=== PATIENT | female | born 1980 | race Caucasian/White ===

== ENCOUNTER 2020-03-09 07:36 | Outpatient (CLI) | payer BC, MEDICAID, SELFPAY ==
--- NOTE | ~2020-03-09 | MR_ITS ---
EXAMINATION: MR lumbar spine wo con EXAM DATE: 03/09/2020 08:28 INDICATION: Low back and bilateral leg pain. TECHNIQUE: Multi-sequential, multiplanar MR images of the lumbar spine were obtained without contrast . Sagittal T1, T2, T2 fat saturation images. Axial T2 weighted images. Comparison is made to prior examination from 02/21/2018. FINDINGS: There is moderate disc disease at L4-5 with endplate degenerative signal change, mild to mo derate at L5-S1 with 2 mm retrolisthesis. The vertebral bodies are otherwise aligned. There is mild d isc disease L2-3 and L3-4. The conus medullaris terminates at the L1/2 level and has normal signal in tensity and morphology. There are no suspicious marrow signal abnormalities. 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 Level by level evaluation: T12-L1: Disc does not extend beyond the endplate margin. Facet arthropathy: Mild. Neural foraminal stenosis: No stenosis. Central canal stenosis: No stenosis. L1-L2: Disc does not extend beyond the endplate margin. Facet arthropathy: Mild. Neural foraminal stenosis: No stenosis. Central canal stenosis: No stenosis. L2-L3: There is a mild diffuse disc bulge. Facet arthropathy: Mild. Neural foraminal stenosis: Mild left. Central canal stenosis: No stenosis. L3-L4: There is a mild to moderate diffuse disc bulge. Facet arthropathy: Mild. Neural foraminal stenosis: Mild to moderate left, minimal right. Central canal stenosis: Mild. L4-L5: There is a moderate diffuse disc bulge. Facet arthropathy: Moderate. Neural foraminal stenosis: Moderate bilateral, right greater than left. Central canal stenosis: Mild to moderate. L5-S1: There is a mild diffuse disc bulge with small right central annular fissure. Facet arthropathy: Mild to moderate. Neural foraminal stenosis: Mild to moderate right, mild left. Central canal stenosis: Mild. IMPRESSION: 1. Lower lumbar predominant spondylosis with the right L4-5 neural foramina most narrowed. Reviewed, dictated and finalized at location A. IMPRESSION: 1. Lower lumbar predominant spondylosis with the right L4-[address] narrowed.
== END 2020-03-09 07:37 | disposition home or self-care (01) ==
PROVIDERS: Visit Provider Anesthesiology
DX: M47.26 Other spondylosis with radiculopathy, lumbar region (principal)
CPT/HCPCS: 72148

== ENCOUNTER 2021-03-05 14:03 | Outpatient (CLI) | payer MEDICAID, SELFPAY ==
--- NOTE | ~2021-03-05 | MR_ITS ---
EXAMINATION: MR lumbar spine wo [facility] [place] EXAM DATE: 03/05/2021 15:07 INDICATION: Low back pain. Bilateral leg numbness. TECHNIQUE: Multi-sequential, multiplanar MR images of the lumbar spine were obtained without contrast . Sagittal T1, T2, T2 fat saturation images. Axial T2 weighted images. There is no prior study for comparison. FINDINGS: Moderate disc disease at L4-5, mild to moderate at L5-S1. There is 2 mm anterolisthesis L4 on L5, 3 mm retrolisthesis L5 on S1. Conus medullaris terminates at the T12-L1 level and has normal m orphology. There are some degenerative endplate signal changes L4-5. There are no suspicious focal v ertebral signal abnormalities identified. Paraspinal soft tissue is unremarkable. Level by level evaluation: T12-L1: Disc does not extend beyond the endplate margin. Facet arthropathy: None. Neural foraminal stenosis: No stenosis. Central canal stenosis: No stenosis. L1-L2: Disc does not extend beyond the endplate margin. Facet arthropathy: None. Neural foraminal stenosis: No stenosis. Central canal stenosis: No stenosis. L2-L3: There is a mild diffuse disc bulge. Facet arthropathy: Mild. Neural foraminal stenosis: Mild left. Central canal stenosis: No stenosis. L3-L4: There is a mild diffuse disc bulge. Facet arthropathy: Mild. Neural foraminal stenosis: Mild left. Central canal stenosis: Mild. L4-L5: There is a mild to moderate diffuse disc bulge. Facet arthropathy: Moderate. Neural foraminal stenosis: Moderate right, mild to moderate left. Central canal stenosis: Mild to moderate. L5-S1: There is a mild diffuse disc bulge. Tiny superimposed right central protrusion. Facet arthropathy: Mild to moderate. Neural foraminal stenosis: Mild to moderate right, mild left. Central canal stenosis: No stenosis. Accounting for differences in technique, there is no significant interval change. IMPRESSION: 1. L4-5 moderate spondylosis. Less at other levels. Reviewed, dictated and finalized at location A.
== END 2021-03-05 14:04 | disposition home or self-care (01) ==
LOC: ANHIMG 14:05
PROVIDERS: PCP Nurse Practitioner Family
DX: M47.817 Spondylosis without myelopathy or radiculopathy, lumbosacral region (principal); M48.07 Spinal stenosis, lumbosacral region
CPT/HCPCS: 72148

== ENCOUNTER 2021-09-30 16:18 | Emergency (ER) | payer OTHER, SELFPAY ==
[2021-09-30] VITALS (9 sets, daily range): BP systolic 115–148; BP diastolic 65–87; PULSE 70–88; RESP 16–20; TEMP 36.2; O2SAT 88–97
--- NOTE | ~2021-09-30 | CT_ITS ---
EXAMINATION: CT abdomen pelvis w con DATE: 09/30/2021 20:43 INDICATION: Periumbilical pain TECHNIQUE: Computed tomography (CT) of the abdomen and pelvis was performed with 100 cc Omnipaque 350 intravenous contrast. The dose-length product was 1533.12 mGy-cm. Automated exposure control and ite rative reconstruction technique were employed. COMPARISON: CT dated 07/10/2007 FINDINGS: There is groundglass opacification throughout the lower lungs, possibly small airway diseas e. Borderline heart size. No significant pleural or pericardial effusion. Fatty infiltration of the liver. Gallstones. No secondary findings to suggest cholecystitis. The sple en, pancreas, left adrenal gland and left kidney are unremarkable. There is a 3 mm nonobstructing rig ht renal stone. There are right renal cysts, largest measuring 4.4 cm. There is fat-containing umbili roberto hernia. There is a 3 cm right adnexal cyst, likely ovarian. Nonobstructive bowel gas pattern. The re is moderate lumbar spondylosis at L4-5 and L5-S1. Grade 1 degenerative spondylolisthesis at L4-5. IMPRESSION: 1. Cholelithiasis. 2: Nonobstructing right nephrolithiasis measuring 3 mm. 3: Right ovarian cyst measuring 3 cm. 4: Diffuse groundglass densities of the lung parenchyma, possibly small airway disease. Reviewed, dictated and finalized at location A. TY ORDINARY
[2021-09-30 19:40] LABS: Basophils Absolute Auto 0.1 K/mm3 (0.0-0.1); Basophils Percent Auto 0.5 % (0.2-1.2); Eosinophils Absolute Auto 0.4 K/mm3 (0-0.3); Eosinophils Percent Auto 4.1 % (0-4.4); Hematocrit 41.3 % (37.0-47.0); Hemoglobin 13.8 g/dL (12.0-15.0); Immature Granulocyte Absolute 0.06 K/mm3 (0.00-0.031); Immature Granulocyte Percent A 0.6 % (0-0.5); Lymphocytes Absolute Auto 2.77 K/mm3 (0.9-3.2); Lymphocytes Percent Auto 28.3 % (18.3-44.2); Mean Corpuscular HGB Conc 33.4 g/dl (32-36); Mean Corpuscular Hemoglobin 31.9 pg (26-34); Mean Corpuscular Volume 95.6 fl (80-100); Mean Platelet Volume 9.9 fl (7.4-10.4); Monocytes Absolute Auto 0.9 K/mm3 (0.1-0.6); Monocytes Percent Auto 8.7 % (2.6-8.5); Neutrophils Absolute Auto 5.7 K/mm3 (1.3-6.7); Neutrophils Percent Auto 57.8 % (45.5-73.1); Platelet Count Result 289 k/mm3 (150-375); Red Blood Count 4.32 M/mm3 (4.2-5.4); Red Cell Distribution Width 14.7 % (11.5-14.5); White Blood Count 9.8 K/mm3 (4.5-10.0)
[2021-09-30 19:49] LABS: Alanine Aminotransferase 168 U/L (4-35); Albumin Level 4.2 g/dL (3.5-5.1); Alkaline Phosphatase 96 U/L (38-126); Anion Gap 4 mmol/L (8-16); Aspartate Amino Transferase 122 U/L (14-36); Bilirubin,Total 0.5 mg/dL (0.2-1.3); Blood Urea Nitrogen 7 mg/dL (7-17); Calcium 9.2 mg/dL (8.4-10.2); Carbon Dioxide 25 mmol/L (22-30); Chloride 108 mmol/L (98-107); Estimated CRCL calculation 68 ml/min; Estimated Glomerular Filt Rate 45; Glucose 112 mg/dL (65-110); Lipase 59 U/L (23-300); Sodium 137 mmol/L (137-145)
[2021-09-30] MEDS: MORPHINE SULFATE (*CRX) 4 MG/ML INJ IV PUSH (19:52)
[2021-09-30] MEDS: ONDANSETRON INJ 4 MG/2 ML VIAL IV PUSH (19:52)
[2021-09-30] MEDS: SODIUM CHLORIDE 0.9% IV 1,000 ML 150 ML IV CONT (19:52)
[2021-09-30 20:39] LABS: Add Urine Microscopic? YES; Appearance Urine Cloudy (Clear); Bacteria Urine Trace /hpf; Bilirubin Urine Negative (Negative); Color Urine Amber (Yellow); Glucose Urine UA Negative (Negative); Ketones Urine Negative (Negative); Leukocyte Esterase Ur 1+ LEU/UL (Negative); Mucus Urine Few /lpf; Nitrate Urine Negative (Negative); Protein Urine Negative (Negative); RBC Urine 0-2 /hpf (0-2); Specific Grav Ur 1.019 (1.001-1.035); Squamous Epithelial Cell Urine Many /hpf (Few)
[2021-09-30 20:40] LABS: Blood Urine Negative (Negative)
--- NOTE | 2021-09-30 21:43 | ED.ABDPAIN ---
HPI - Abdominal Pain General Chief Complaint: Abdominal Pain Stated Complaint: abd pain Time Seen by Provider: 09/30/21 19:33 Source: patient Mode of arrival: ambulatory Limitations: no limitations History of Present Illness HPI narrative: 41-year-old with no major medical problems here with periumbilical pain and lower abdominal pain for past few days. She denies any nausea or vomiting. She is noticed for the swollen area around the umbilicus. She is had a normal bowel movement 5 days ago. She denies any blood in the stool or in the urine. MD elicited complaint: abdominal pain Pertinent past history: none Onset (ago): day(s) (5) Pain Consistency: constant Location: periumbilical Severity: moderate Quality: aching Migration to: no migration Exacerbating factors: nothing Relieving factors: nothing Related Data Allergies Allergy/AdvReac Type Severity Reaction Status Date / Time No Known Allergies Allergy Unknown Unverified 09/30/21 19:24 Review of Systems Review of Systems: All systems reviewed & are unremarkable except as noted in HPI and below Constitutional: Constitutional: Reports no additional constitutional complaints Eyes: Eyes: Reports no additional eye complaints ENT: Reports system reviewed and no additional complaints, except as documented Cardiovascular: Cardiovascular: Reports no additional cardiovascular complaints Respiratory: Respiratory: Reports no additional respiratory complaints Gastrointestinal: Gastrointestinal: Reports as per HPI Musculoskeletal: Musculoskeletal: Reports no additional musculoskeletal complaints Integumentary/Breasts: Skin/Breast: Reports system reviewed and no additional complaints, except as docu Neurologic: Reports system reviewed and no additional complaints, except as documented Exam Narrative: GENERAL: Well-appearing,obese , and in no acute distress. HEAD: Normocephalic, atraumatic. EYES: PERRLA and EOMI. NECK: Supple. CHEST: Clear to auscultation. No respiratory distress. HEART: Regular rate and rhythm. No murmur heard. Normal peripheral pulses. ABDOMEN: Soft, periumbilical tenderness and in the lower abdomen, nondistended, normal active bowel sounds. EXTREMITIES: Normal range of motion. No edema. SKIN: Warm, dry, no rash. NEURO: No focal deficits. Alert and oriented x3. PSYCH: Normal mood and affect. Course Course Emergency Course: Patient feeling much better informed her about her lab work, CT scan. Advised her to follow-up with surgeon fat-free diet Vital Signs Vital signs: Vital Signs Temperature 36.2 C L 12/15/21 16:23 Pulse Rate 87 09/30/21 16:23 Respiratory Rate 16 09/30/21 16:23 Blood Pressure 148/87 H 09/30/21 16:23 Pulse Oximetry 97 09/30/21 16:23 Temperature 36.2 C L 09/30/21 16:23 Pulse Rate 88 09/30/21 21:16 Respiratory Rate 20 09/30/21 21:16 Blood Pressure 121/77 09/30/21 21:31 Pulse Oximetry 95 09/30/21 19:21 MDM - Abdominal Pain Lab Data Result diagrams: 09/30/21 19:33 09/30/21 19:33 Labs: Lab Results 09/30/21 09/30/21 09/30/21 Range/Units 19:33 19:33 20:15 WBC 9.8 (4.5-10.0) K/mm3 RBC 4.32 (4.2-5.4) M/mm3 Hgb 13.8 (12.0-15.0) g/dL Hct 41.3 (37.0-47.0) % MCV 95.6 (80-100) fl MCH 31.9 (26-34) pg MCHC 33.4 (32-36) g/dl RDW 14.7 H (11.5-14.5) % Plt Count 289 (150-375) k/mm3 MPV 9.9 (7.4-10.4) fl Immature Gran % (Auto) 0.6 H (0-0.5) % Neut % (Auto) 57.8 (45.5-73.1) % Lymph % (Auto) 28.3 (18.3-44.2) % [place] % (Auto) 8.7 H (2.6-8.5) % Eos % (Auto) 4.1 (0-4.4) % Baso % (Auto) 0.5 (0.2-1.2) % Lymph # (Auto) 2.77 (0.9-3.2) K/mm3 [place] # (Auto) 0.9 H (0.1-0.6) K/mm3 Eos # (Auto) 0.4 H (0-0.3) K/mm3 Baso # (Auto) 0.1 (0.0-0.1) K/mm3 Abs Immat Gran (auto) 0.06 H (0.00-0.031) K/mm3 Absolute Neuts (auto) 5.7 (1.3-6.7) K/mm3 Absolute Nucleated RBC 0.0 (0.0-0.
== END 2021-09-30 21:57 | disposition home or self-care (01) ==
PROVIDERS: Emergency Medicine; Emergency Provider Family Medicine; PCP Nurse Practitioner Family
DX: K42.0 Umbilical hernia with obstruction, without gangrene (principal); K80.20 Calculus of gallbladder without cholecystitis without obstruction
CPT/HCPCS: 36415; 74177; 80053; 81001; 81025; 83690; 85025; 87086; 96361; 96374; 96375; 99284; J2270; J2405; J7030; Q9967

== ENCOUNTER 2021-11-13 10:13 | Outpatient (CLI) | payer OTHER, SELFPAY ==
[2021-11-13 11:30] LABS: Amylase 53 U/L (30-110)
--- NOTE | 2021-11-13 14:00 | ECG_ITS ---
Measurements Intervals [place] Rate: 78 P: 50 [place]: 156 QRS: 11 QRSD: 101 T: 35 QT: 360 QTc: 410 Interpretive Statements SINUS RHYTHM DELAYED PRECORDIAL R/S TRANSITION VOLTAGE CRITERIA FOR LVH MINIMAL Q WAVES- HIGH LATERAL LEADS BASELINE ARTIFACT- I, II, III, AVR, AVL, AVF, V5 BORDERLINE ECG Electronically Signed On 11-13-2021 10:41:35 LAPPER by Abhi Horne D.O.
== END 2021-11-13 10:14 | disposition home or self-care (01) ==
LOC: ANHSURGERY 10:18
PROVIDERS: PCP Nurse Practitioner Family; Visit Provider Surgery
DX: Z01.818 Encounter for other preprocedural examination (principal); K80.20 Calculus of gallbladder without cholecystitis without obstruction; I10 Essential (primary) hypertension; F17.200 Nicotine dependence, unspecified, uncomplicated
CPT/HCPCS: 36415; 82150; 86850; 86900; 86901; 93005

== ENCOUNTER 2021-11-16 01:42 | Day surgery (SDC) | payer OTHER, SELFPAY ==
[2021-11-11 10:28] VITALS: BMI 50.6
--- NOTE | 2021-11-11 10:43 | PC.NURSE ---
Report to the Outpatient Waiting Room, entrance under the green pavilion located off [facility], at time 6:00 on date 11/16/21. OR Time: 7:30. - You will be asked a series of questions to screen for COVID 19 for your protection. - A mask is required within the hospital. - No visitors are allowed at this time. Preoperative COVID Testing Requirements: No COVID Test needed if: (proof is required; if not received patient will have Rapid Test prior to entry) - Patient has received COVID Vaccine at least 14 days prior to procedure date or - Patient has positive COVID test result within last 90 days of surgery date. COVID Test needed if above criteria is not met Patients may have clear liquids (water, carbonated beverages, clear teas, apple juice) until 3 hours prior to surgery (4:30) with a maximum of 20 ounces. - No food from midnight until time of surgery Take the following medications with a SIP of water the morning of surgery: AMLODIPINE, INHALER, BUSPIRONE, DULOXETINE, GABAPENTIN, TOPIRAMATE Medications to discontinue per physician: VITAMINS/SUPPLEMENTS Date to take last dose: 11/11/21 Please no make-up, nail colombian, hairspray, perfume, deodorant, or body powder the day of surgery. No jewelry (including any body piercings) or valuables the day of surgery, leave them at home. Please take a shower or bath the night before, or the morning of, surgery with an antibacterial soap. Wear comfortable, loose fitting clothing. HIBICLENS SHOWER - Jewelry must be removed prior to entering the operating room. Rings and piercings that are not removed may be cut off. - The hospital will not accept responsibility for valuables. - Please leave all valuables, including medications, at home the day of surgery. If you are going home after surgery, a licensed sales route driver must drive you home. - NO public transportation without another adult. - We recommend that an adult stay with you for 24 hours following discharge. - We also recommend that you do not drive, make important decision, drink alcoholic beverages, or take any drugs that were not prescribed by your health care provider for at least 24 hours after your discharge time. Follow any additional instructions given to you from your surgeon. Telephone instructions given to DEENA WARNER and asked if any additional questions and then verbalized understanding. Patient advised to call surgeon office or pre surgery nurse liaison [phone] if any additional questions.
[2021-11-16] VITALS (9 sets, daily range): BP systolic 115–137; BP diastolic 66–78; PULSE 80–108; RESP 18–24; TEMP 36–36.2; O2SAT 91–97
[2021-11-16] MEDS: ACETAMINOPHEN 500 MG TABLET 1000 MG PO (06:47)
--- NOTE | 2021-11-16 07:04 | WPDANESEPPF ---
Anes - Initial Pre Proc Eval Procedure: Operation Date: 11/16/21 07:30 Proposed Procedures p Laparoscopic Cholecystectomy, Possible Open - Juan Jose Disla DO s Open Incarcerated Umbilical Hernia Repair with Possible Mesh - Juan Jose Disla DO Date/Time: 11/16/21 07:04 Surgeon: Juan Jose Disla DO Pre Op Diagnosis: Incarc Umbilical Hernia, Sympt. Cholelithiasis Patient Data Age: 41 Gender: F Height: 1.63 m Weight: 132 kg Allergies Allergy/AdvReac Type Severity Reaction Status Date / Time No Known Allergies Allergy Unknown Verified 11/16/21 06:39 Home Medications Medication Instructions Recorded Confirmed Type amlodipine 10 mg tablet 10 mg PO DAILY 10/08/21 11/16/21 History ascorbic acid (vitamin C) 250 mg 250 mg PO DAILY 10/08/21 11/16/21 History tablet aspirin 81 mg tablet,delayed 81 mg PO DAILY 10/08/21 11/16/21 History release budesonide-formoterol HFA 160 1 inh INHALATION ONCE 10/08/21 11/16/21 History mcg-4.5 mcg/actuation aerosol inhaler buspirone 15 mg tablet 15 mg PO BID 10/08/21 11/16/21 History cholecalciferol (vitamin D3) 10 10 mcg PO DAILY 10/08/21 11/16/21 History mcg (400 unit) capsule duloxetine 60 mg capsule,delayed 60 mg PO HS 10/08/21 11/16/21 History release furosemide 40 mg tablet 40 mg PO QAM 10/08/21 11/16/21 History gabapentin 600 mg tablet 600 mg PO DAILY 10/08/21 11/16/21 History lisinopril 40 mg tablet 40 mg PO DAILY 10/08/21 11/16/21 History omega-3 fatty acids 1,000 mg 1,000 mg PO DAILY 10/08/21 11/16/21 History capsule omeprazole 20 mg capsule,delayed 20 mg PO DAILY 10/08/21 11/16/21 History release topiramate 50 mg tablet 50 mg PO BID 10/08/21 11/16/21 History vitamin B complex 1 tablet PO DAILY 10/08/21 11/16/21 History Patient hx anesthesia problems: none Family hx anesthesia problems: none Results Review: All pre-operative results and documents have been reviewed as part of the pre-operative evaluation. PMFSH Past Medical History Medical History Anxiety COPD (chronic obstructive pulmonary disease) GERD (gastroesophageal reflux disease) Hypertension Surgical History Surgical History H/O: hysterectomy Family History Family History Father Hypertension Mother Depression Heart disease Hypertension Social History Social History Smoking packs per day: 1 Smoking cigarettes per day: 20.0 Years smoked: 26 Smoking pack-years: 26.00 Smoking status: Current every day smoker Tobacco type: cigarettes Alcohol intake: current Substance use: never Substance use type: marijuana Other substance usage details: EVERY ONCE IN A WHILE Living arrangements: with family Spiritual care concerns: No Anes - Eval Final PreProcedure Day of Procedure 11/16/21 07:04 Patient weight: super morbidly obese Heart: regular rate and rhythm Lungs: decreased breath sounds Airway: Mallampati scale class II Neurological: alert and oriented Last oral intake: >/= 8 hours ASA classification: III Emergent: no Anesthetic plan: proceed Anesthesia type and monitoring: general ETT and standard monitoring Results Review: All pre-operative results and documents have been reviewed as part of the pre-operative evaluation. Informed Consent: The patient's anesthetic plan and its attendant risks and benefits were discussed with the patient/family/POA. Questions were solicited and answers provided to the satisfaction of the patient/family/POA.
[2021-11-16] MEDS: LACTATED RINGERS 1,000 ML 30 ML IV CONT ×2 (07:07→08:45)
[2021-11-16] MEDS: KETOROLAC 15 MG/ML VIAL (*BKC) IV PUSH (07:07)
--- NOTE | 2021-11-16 07:18 | WPDHPUPDATE1 ---
History and Physical Update Update Date/Time: 11/16/21 07:18 History and Physical has been reviewed, including an updated exam of the patient. There are NO changes in the patient's condition. Risks, benefits, and alternatives have been discussed and questions answered. Patient agrees to proceed with procedure.
--- NOTE | 2021-11-16 07:18 | PM.IMHP ---
H&P: HPI History of Present Illness Date/Time: 11/16/21 07:18 Chief Complaint: umbilical hernia, cholelithiasis Narrative: 41 yo woman presents for lap angel and umbilical hernia repair. She reports no changes since last seen in office. Review of Systems Review of Systems: All systems reviewed & are unremarkable except as noted in HPI and below Constitutional: Constitutional: Denies chills, Denies fever(s), Denies headache(s) and Denies weight loss Eyes: Eyes: Denies change in vision ENT: Denies dizziness, Denies headache(s), Denies neck mass and Denies throat swelling Cardiovascular: Cardiovascular: Denies chest pain, Denies lightheadedness and Denies dyspnea Respiratory: Respiratory: Denies cough, Denies dyspnea and Denies wheezing Gastrointestinal: Gastrointestinal: Denies abdominal pain, Denies change in bowel habits, Denies nausea and Denies vomiting Genitourinary: Genitourinary: Denies hematuria and Denies dysuria Musculoskeletal: Musculoskeletal: Reports as per HPI Integumentary/Breasts: Skin/Breast: Reports as per HPI Neurologic: Denies dizziness and Denies headache(s) Allergic/Immunologic: Allergic/Immunologic: Denies throat swelling and Denies wheezing PMFSH Past Medical History Medical History Anxiety COPD (chronic obstructive pulmonary disease) GERD (gastroesophageal reflux disease) Hypertension Surgical History Surgical History H/O: hysterectomy Family History Family History Father Hypertension Mother Depression Heart disease Hypertension Social History Social History Smoking packs per day: 1 Smoking cigarettes per day: 20.0 Years smoked: 26 Smoking pack-years: 26.00 Smoking status: Current every day smoker Tobacco type: cigarettes Alcohol intake: current Substance use: never Substance use type: marijuana Other substance usage details: EVERY ONCE IN A WHILE Living arrangements: with family Spiritual care concerns: No Meds Home Medications and Allergies Home Medications Medication Instructions Recorded Confirmed Type amlodipine 10 mg tablet 10 mg PO DAILY 10/08/21 11/16/21 History ascorbic acid (vitamin C) 250 mg 250 mg PO DAILY 10/08/21 11/16/21 History tablet aspirin 81 mg tablet,delayed 81 mg PO DAILY 10/08/21 11/16/21 History release budesonide-formoterol HFA 160 1 inh INHALATION ONCE 10/08/21 11/16/21 History mcg-4.5 mcg/actuation aerosol inhaler buspirone 15 mg tablet 15 mg PO BID 10/08/21 11/16/21 History cholecalciferol (vitamin D3) 10 10 mcg PO DAILY 10/08/21 11/16/21 History mcg (400 unit) capsule duloxetine 60 mg capsule,delayed 60 mg PO HS 10/08/21 11/16/21 History release furosemide 40 mg tablet 40 mg PO QAM 10/08/21 11/16/21 History gabapentin 600 mg tablet 600 mg PO DAILY 10/08/21 11/16/21 History lisinopril 40 mg tablet 40 mg PO DAILY 10/08/21 11/16/21 History omega-3 fatty acids 1,000 mg 1,000 mg PO DAILY 10/08/21 11/16/21 History capsule omeprazole 20 mg capsule,delayed 20 mg PO DAILY 10/08/21 11/16/21 History release topiramate 50 mg tablet 50 mg PO BID 10/08/21 11/16/21 History vitamin B complex 1 tablet PO DAILY 10/08/21 11/16/21 History Allergies Allergy/AdvReac Type Severity Reaction Status Date / Time No Known Allergies Allergy Unknown Verified 11/16/21 06:39 Vital Signs Vital Signs - 24 hr 11/16/21 07:11 Temperature 36.2 C L Pulse Rate 108 H Respiratory Rate 18 Blood Pressure 129/73 Pulse Oximetry 97 Exam Const: General: no acute distress and alert Orientation/consciousness: patient oriented x3 HENMT: Head: normocephalic and atraumatic Ears: hearing grossly normal bilaterally General nose exam: Normal nares present Mouth: Yes Normal oral a
[2021-11-16] MEDS: ceFAZolin 3 GM/D5W 100 ML 100 ML IVPB (07:27)
[2021-11-16] MEDS: BUPIVACAINE/EPINEPHRINE 0.5% 30 ML VIAL INFILTRATE (07:47)
--- NOTE | 2021-11-16 08:44 | W.PM.PROC2 ---
Procedure Note - Detailed Date of Procedure 11/16/21 Pre-op Diagnosis Symptomatic cholelithiasis, incarcerated umbilical hernia Post-op Diagnosis same Procedure Performed 1. Laparoscopic cholecystectomy 2. Incarcerated umbilical hernia repair Surgeon Juan Jose Disla, Anesthesia general and local (0.5% bupivacaine with epinephrine) Indications This is a 41-year-old woman who presented with periumbilical pain and right upper quadrant abdominal pain for the past couple months. She was noticing pain in the right upper quadrant after eating, but was having fairly constant periumbilical pain especially with physical activity. She had a CT of her abdomen and pelvis which showed evidence of cholelithiasis and umbilical hernia containing fat. I discussed treatment options with patient and decision was made to proceed with laparoscopic cholecystectomy and open incarcerated umbilical hernia repair with possible mesh. Findings Laparoscopic cholecystectomy was performed. The gallbladder was slightly dilated and contained a few gallstones. The cystic duct appeared normal in size. No other intra-abdominal abnormalities were noted except for omentum going up into the umbilical hernia. The gallbladder was removed and sent to the lab for pathology. I then made an incision inferior to the umbilicus and excised the hernia sac and incarcerated contents. The umbilical hernia only measured about 5 mm and was therefore repaired primarily. The hernia sac was sent to the lab for pathology. Description of Procedure Procedure as well as risks, benefits, and alternatives were discussed with patient. Written consent was obtained and placed in chart prior to procedure. The patient was brought back to surgical suite. Patient was placed in supine position on operating table. Time-out was done to confirm patient and procedure. Patient was then intubated by the anesthesia department. Abdomen was prepped and draped in sterile fashion using chlorhexidine prep. 0.5% bupivacaine with epinephrine was infiltrated at each site of incision. A 5 millimeter incision was made near the umbilicus, and a 5 millimeter Optiview trocar was advanced through the abdominal layers under direct visualization. Once inside the abdominal cavity, carbon dioxide was insufflated to create a pneumoperitoneum. The camera was inserted and the abdomen was inspected. No immediate abnormalities were identified. The patient was placed in reverse Trendelenburg position and rotated slightly to the left. An 11 millimeter incision was made in the subxiphoid region, and an 11 millimeter trocar was inserted under direct visualization. Two 5 millimeter incisions were made in the right upper quadrant, and two 5 millimeter trocars were inserted under direct visualization. The gallbladder was identified and grasped at the fundus and retracted superiorly. It was then grasped at the infundibulum retracted laterally. Careful dissection around the neck of the gallbladder was performed using blunt dissection with a [place] grasper and hook electrocautery. The cystic duct was identified, and a window was created behind it. The cystic artery was also identified and a window was created behind it. The critical view of safety was identified, visualizing the cystic duct running directly into the neck of the gallbladder, and the cystic artery running directly into the wall of the gallbladder. A 5 millimeter clip lighting technician was then used to place 2 clips proximally and 1 clip distally on both the cystic duct and cystic artery. They were then both transected using endoscopic scissors. Once safely away from the deacon hepatitis, the gallbladder was dissected free from the liver bed using hook electrocautery. Hemostasis was achieved along the way. The gallbladder was removed completely and then removed through the subxiphoid port. The liver bed was then inspected. Hemostasis appeared adequate, and our clips appeared secure. The area
[2021-11-16] MEDS: oxyCODONE HCL (*CRX) 5 MG TAB IR PO (09:55)
== END 2021-11-16 10:35 | disposition home or self-care (01) ==
PROVIDERS: PCP Nurse Practitioner Family; Visit Provider Surgery
PROC: 0FT44ZZ Resection of Gallbladder, Percutaneous Endoscopic Approach (ICD-10-PCS; CPT 47562; principal; 2021-11-16 07:30)
PROC: (CPT 47562; 2021-11-16 07:30)
DX: K80.10 Calculus of gallbladder with chronic cholecystitis without obstruction (principal); K42.0 Umbilical hernia with obstruction, without gangrene; Z79.82 Long term (current) use of aspirin; F41.9 Anxiety disorder, unspecified; J44.9 Chronic obstructive pulmonary disease, unspecified; K21.9 Gastro-esophageal reflux disease without esophagitis; I10 Essential (primary) hypertension; F17.210 Nicotine dependence, cigarettes, uncomplicated; F12.90 Cannabis use, unspecified, uncomplicated; E66.01 Morbid (severe) obesity due to excess calories; Z68.43 Body mass index [BMI] 50.0-59.9, adult
CPT/HCPCS: 47562; 49587; 88302; 88304; A9270; J0690; J1100; J1885; J2250; J2405; J2704; J2710; J3010; J7030; J7120

== ENCOUNTER 2022-02-05 15:01 | Outpatient (CLI) | payer OTHER, SELFPAY ==
--- NOTE | ~2022-02-05 | US_ITS ---
EXAMINATION: US venous doppler [facility] DATE: 02/05/2022 15:54 INDICATION: Left lower limb pain TECHNIQUE: Hummel scale images without and with compression and Doppler images of the left lower extrem ity veins were obtained. COMPARISON: None FINDINGS: The left common femoral vein, profunda femoral vein, femoral vein, popliteal vein, peroneal trunk, posterior tibial veins, and greater saphenous vein are patent. An approximately 4.8 x 1.6 cm Paez's cyst is noted. IMPRESSION: 1. Patent left lower extremity veins. No evidence of deep venous thrombosis. Reviewed, dictated and finalized at location F.
== END 2022-02-05 15:02 | disposition home or self-care (01) ==
LOC: ANHIMG 15:04
PROVIDERS: PCP Nurse Practitioner Family; Visit Provider Nurse Practitioner Family
DX: M79.89 Other specified soft tissue disorders (principal); M79.605 Pain in left leg
CPT/HCPCS: 93971

== ENCOUNTER 2022-02-06 14:22 | Emergency (ER) | payer OTHER, SELFPAY ==
[2022-02-06] VITALS (20 sets, daily range): BP systolic 103–138; BP diastolic 57–84; PULSE 66–95; RESP 10–25; TEMP 36.9; O2SAT 89–96
--- NOTE | ~2022-02-06 | XR_ITS ---
EXAMINATION: XR chest 2V Exam Date/Time: 02/06/2022 14:30 CDT CLINICAL HISTORY: CHEST PRESSURE. HX HTN, FLUID OVERLOAD Comparison: 09/24/2018. RESULT: Lines, tubes, and devices: None. Lungs and pleura: Mild diffuse reticular pattern. Cardiomediastinal silhouette: Stable cardiomediastinal silhouette. Other: No acute osseous or upper abdominal finding. IMPRESSION: Mild interstitial edema. Reviewed, dictated and finalized at location K. IMPRESSION: Mild interstitial edema.
--- NOTE | 2022-02-06 14:23 | ECG_ITS ---
Measurements Intervals [place] Rate: 83 P: 47 CT: 143 QRS: -3 QRSD: 94 T: 40 QT: 352 QTc: 415 Interpretive Statements SINUS RHYTHM VOLTAGE CRITERIA FOR LVH [MEETS CRITERIA IN ONE OF: R(aVL), S(V1), R(V5), R(V5/V6)+S(V1)] COMPARED TO ECG 11/13/2021 10:37:18 NO SIGNIFICANT CHANGES Electronically Signed On 02-07-2022 7:57:53 CDT by Carmelo Duong M.D.
[2022-02-06] MEDS: ASPIRIN 81 MG CHEWABLE TABLET 324 MG PO (14:43)
[2022-02-06 14:50] LABS: Basophils Absolute Auto 0.1 K/mm3 (0.0-0.1); Basophils Percent Auto 0.6 % (0.2-1.2); Eosinophils Absolute Auto 0.4 K/mm3 (0-0.3); Eosinophils Percent Auto 3.8 % (0-4.4); Hematocrit 38.2 % (37.0-47.0); Hemoglobin 12.1 g/dL (12.0-15.0); Immature Granulocyte Absolute 0.06 K/mm3 (0.00-0.031); Immature Granulocyte Percent A 0.6 % (0-0.5); Lymphocytes Absolute Auto 2.52 K/mm3 (0.9-3.2); Mean Corpuscular HGB Conc 31.7 g/dl (32-36); Mean Corpuscular Hemoglobin 27.5 pg (26-34); Mean Corpuscular Volume 86.8 fl (80-100); Mean Platelet Volume 10.3 fl (7.4-10.4); Monocytes Absolute Auto 0.8 K/mm3 (0.1-0.6); Monocytes Percent Auto 7.8 % (2.6-8.5); Neutrophils Absolute Auto 6.6 K/mm3 (1.3-6.7); Neutrophils Percent Auto 63.2 % (45.5-73.1); Platelet Count Result 336 k/mm3 (150-375); Red Cell Distribution Width 17.4 % (11.5-14.5); White Blood Count 10.5 K/mm3 (4.5-10.0)
[2022-02-06 15:00] LABS: Alanine Aminotransferase 127 U/L (4-35); Albumin Level 4.3 g/dL (3.5-5.1); Alkaline Phosphatase 101 U/L (38-126); Anion Gap 10 mmol/L (8-16); Aspartate Amino Transferase 107 U/L (14-36); Bilirubin,Total 0.4 mg/dL (0.2-1.3); Blood Urea Nitrogen 8 mg/dL (7-17); Calcium 8.9 mg/dL (8.4-10.2); Carbon Dioxide 23 mmol/L (22-30); Chloride 106 mmol/L (98-107); Estimated CRCL calculation 107 ml/min; Estimated Glomerular Filt Rate > 60; Glucose 123 mg/dL (65-110); Lipase 59 U/L (23-300); Potassium 3.6 mmol/L (3.4-5.0); Sodium 139 mmol/L (137-145)
[2022-02-06 15:06] LABS: INR 1.1; Partial Thromboplastin Time 28.6 SECONDS (22.3-36.8); Prothrombin Time 13.6 Seconds (11.1-14.7)
[2022-02-06 15:12] LABS: Troponin I < 0.012 ng/mL (0.000-0.034)
--- NOTE | 2022-02-06 15:28 | ED.CHESTPAIN ---
HPI - Chest Pain General Chief Complaint: Chest Pain Stated Complaint: chest pain Time Seen by Provider: 02/06/22 14:54 Source: patient and RN notes reviewed Mode of arrival: ambulatory Limitations: no limitations History of Present Illness HPI narrative: 41-year-old female with history of hypertension, mild water retention, depression and is a current smoker presents emerged department for evaluation of chest pain and shortness of breath. Patient reports this morning at 8 AM she was in bed and had onset of substernal chest pain. Patient states the pain was constant throughout the day. Patient states she began developing shortness of breath around 1 PM. Patient does have lower extremity edema. Patient does have history of hypertension, water retention, depression and she is a smoker. Related Data Home Medications Medication Instructions Recorded Confirmed amlodipine 10 mg tablet 10 mg PO DAILY 10/08/21 12/18/21 ascorbic acid (vitamin C) 250 mg 250 mg PO DAILY 10/08/21 12/18/21 tablet aspirin 81 mg tablet,delayed 81 mg PO DAILY 10/08/21 12/18/21 release budesonide-formoterol HFA 160 1 inh INHALATION ONCE 10/08/21 12/18/21 mcg-4.5 mcg/actuation aerosol inhaler buspirone 15 mg tablet 15 mg PO BID 10/08/21 12/18/21 cholecalciferol (vitamin D3) 10 10 mcg PO DAILY 10/08/21 12/18/21 mcg (400 unit) capsule duloxetine 60 mg capsule,delayed 60 mg PO HS 10/08/21 12/18/21 release furosemide 40 mg tablet 40 mg PO QAM 10/08/21 12/18/21 gabapentin 600 mg tablet 600 mg PO DAILY 10/08/21 12/18/21 lisinopril 40 mg tablet 40 mg PO DAILY 10/08/21 12/18/21 omega-3 fatty acids 1,000 mg 1,000 mg PO DAILY 10/08/21 12/18/21 capsule omeprazole 20 mg capsule,delayed 20 mg PO DAILY 10/08/21 12/18/21 release topiramate 50 mg tablet 50 mg PO BID 10/08/21 12/18/21 vitamin B complex 1 tablet PO DAILY 10/08/21 12/18/21 potassium chloride meq PO 02/06/22 Allergies Allergy/AdvReac Type Severity Reaction Status Date / Time No Known Allergies Allergy Unknown Verified 02/06/22 15:05 Review of Systems Review of Systems: CONSTITUTIONAL: Denies fever, chills, or sweats. EYES: Denies visual changes, redness, or discharge. ENT: Denies rhinorrhea, congestion, sore throat, or otalgia. CARDIOVASCULAR: See HPI RESPIRATORY: Denies cough or dyspnea. GASTROINTESTINAL: Denies abdominal pain, nausea, vomiting, or diarrhea. GENITOURINARY: Denies dysuria or hematuria. SKIN: Denies rash or itching. MUSCULOSKELETAL: Denies back pain, joint pain, or myalgia. NEUROLOGIC: Denies headache, numbness, or weakness. [facility] Past Medical History Medical History Anxiety COPD (chronic obstructive pulmonary disease) GERD (gastroesophageal reflux disease) Hypertension Surgical History Surgical History H/O umbilical hernia repair 11/16/21 H/O: hysterectomy Hx laparoscopic cholecystectomy 11/16/21 Family History Family History Father Hypertension Mother Depression Heart disease Hypertension Social History Social History Smoking packs per day: 1 Smoking cigarettes per day: 20.0 Years smoked: 26 Smoking pack-years: 26.00 Smoking status: Current every day smoker Tobacco type: cigarettes Alcohol intake: current Substance use: never Substance use type: marijuana Other substance usage details: EVERY ONCE IN A WHILE Spiritual care concerns: No Exam Narrative: APPEARANCE: Well appearing, no pain, no distress, well-nourished. HEAD: normocephalic, atraumatic. EYES: PERRLA/EOMI, conjunctivae clear. NOSE: Normal no drainage THROAT: Pharynx clear, no exudate. NECK: Supple. No adenopathy, no masses. RESPIRATORY: Airway patent, respirations nonlabored. Clear to auscultation bilaterally, no rales, rhonch
[2022-02-06 15:48] LABS: NT Pro B Type Natriuretic Pept 50 pg/mL (5-100)
[2022-02-06 16:05] LABS: D Dimer 0.47 ug/mL (<0.48)
[2022-02-06 18:10] LABS: Troponin I < 0.012 ng/mL (0.000-0.034)
[2022-02-06] MEDS: HYDROcodone/acetaminophen (*CRX) 5-325 MG TABLET 1 TAB PO (18:20)
== END 2022-02-06 19:11 | disposition home or self-care (01) ==
PROVIDERS: Emergency Medicine; Emergency Provider Emergency Medicine; PCP Nurse Practitioner Family
DX: R07.2 Precordial pain (principal); I10 Essential (primary) hypertension; J44.9 Chronic obstructive pulmonary disease, unspecified; K21.9 Gastro-esophageal reflux disease without esophagitis; F41.9 Anxiety disorder, unspecified; F32.A Depression, unspecified; Z79.82 Long term (current) use of aspirin; F17.210 Nicotine dependence, cigarettes, uncomplicated; J81.1 Chronic pulmonary edema; R94.31 Abnormal electrocardiogram [ECG] [EKG]
CPT/HCPCS: 36415; 71046; 80053; 83690; 83880; 84484; 85025; 85380; 85610; 85730; 93005; 99284; A9270

== ENCOUNTER 2022-05-14 12:39 | Emergency (ER) | payer OTHER, SELFPAY ==
--- NOTE | 2022-05-14 12:54 | ED.SKABFB ---
HPI - Skin/Abscess/Foreign Bdy General Chief complaint: Skin/Abscess/Foreign Body Stated complaint: cat bite/scratch Time Seen by Provider: 05/14/22 12:54 Source: patient Mode of arrival: ambulatory Limitations: no limitations History of Present Illness HPI narrative: Ms. Paez is a 42-year-old female patient presenting to the clinic today with complaints of a cat bite/scratch to the left forearm She reports she was scratched by her cat 2 weeks ago. Has an area on her forearm that is red and swollen and tender to touch. She has been applying triple antibiotic ointment and cleaning it with soap and water without improvement. Just received tetanus booster earlier this month Related Data Home Medications Medication Instructions Recorded Confirmed amlodipine 10 mg tablet 10 mg PO DAILY 10/08/21 12/18/21 ascorbic acid (vitamin C) 250 mg 250 mg PO DAILY 10/08/21 12/18/21 tablet aspirin 81 mg tablet,delayed 81 mg PO DAILY 10/08/21 12/18/21 release budesonide-formoterol HFA 160 1 inh inhalation ONCE 10/08/21 12/18/21 mcg-4.5 mcg/actuation aerosol inhaler (Symbicort) buspirone 15 mg tablet 15 mg PO BID 10/08/21 12/18/21 cholecalciferol (vitamin D3) 10 10 mcg PO DAILY 10/08/21 12/18/21 mcg (400 unit) capsule duloxetine 60 mg capsule,delayed 60 mg PO HS 10/08/21 12/18/21 release furosemide 40 mg tablet 40 mg PO QAM 10/08/21 12/18/21 gabapentin 600 mg tablet 600 mg PO DAILY 10/08/21 12/18/21 lisinopril 40 mg tablet 40 mg PO DAILY 10/08/21 12/18/21 omega-3 fatty acids 1,000 mg 1,000 mg PO DAILY 10/08/21 12/18/21 capsule (Fish Oil Concentrate) omeprazole 20 mg capsule,delayed 20 mg PO DAILY 10/08/21 12/18/21 release topiramate 50 mg tablet 50 mg PO BID 10/08/21 12/18/21 vitamin B complex (B 1 tablet PO DAILY 10/08/21 12/18/21 Complex-Vitamin B12 tablet) potassium chloride 10 mEq meq PO 02/06/22 tablet,extended release Allergies Allergy/AdvReac Type Severity Reaction Status Date / Time No Known Allergies Allergy Unknown Verified 05/14/22 13:13 Review of Systems Review of Systems: Pertinent positives per HPI. Patient denies any fever, chills, headache, visual changes, dizziness, cough, runny nose, sore throat, shortness of breath, chest pain, palpitations, nausea, vomiting, diarrhea, constipation, abdominal pain, or any urinary issues. PMFSH Past Medical History Medical History Anxiety COPD (chronic obstructive pulmonary disease) GERD (gastroesophageal reflux disease) Hypertension Surgical History Surgical History H/O umbilical hernia repair 11/16/21 H/O: hysterectomy Hx laparoscopic cholecystectomy 11/16/21 Family History Family History Father Hypertension Mother Depression Heart disease Hypertension Social History Social History Smoking packs per day: 1 Smoking cigarettes per day: 20.0 Years smoked: 26 Smoking pack-years: 26.00 Smoking status: Current every day smoker Tobacco type: cigarettes Alcohol intake: current Substance use: never Substance use type: marijuana Other substance usage details: EVERY ONCE IN A WHILE Spiritual care concerns: No Comments At the time of my signature, I reviewed and agree with the nursing past medical, surgical, social, and family history. There is no relevant family history pertinent to the patient complaint. Exam Narrative: General: Well-developed, well nourished, in no apparent distress Head: Normocephalic, atraumatic. Cardio: Regular rate and rhythm, s1 and s2 normal, no murmur appreciated. Resp: Clear to auscultation bilaterally, no rhonchi, rales, wheezing or rubs. Integumentary: [place], warm, and dry, cellulitis to the left forearm where she has 2 cat scratches with
[2022-05-14 12:57] VITALS: BP 138/85; PULSE 89; RESP 16; TEMP 36.4; O2SAT 98
== END 2022-05-14 13:20 | disposition home or self-care (01) ==
PROVIDERS: Emergency Provider Nurse Practitioner Family
DX: S50.812A Abrasion of left forearm, initial encounter (principal); L08.9 Local infection of the skin and subcutaneous tissue, unspecified; W55.03XA Scratched by cat, initial encounter; J44.9 Chronic obstructive pulmonary disease, unspecified; K21.9 Gastro-esophageal reflux disease without esophagitis; I10 Essential (primary) hypertension; F17.210 Nicotine dependence, cigarettes, uncomplicated; F41.9 Anxiety disorder, unspecified; Z79.82 Long term (current) use of aspirin
CPT/HCPCS: 99213; G0463

== ENCOUNTER 2022-06-01 15:33 | Inpatient (IN) | payer OTHER, SELFPAY ==
[2022-06-01] VITALS (11 sets, daily range): BP systolic 107–123; BP diastolic 52–67; PULSE 77–102; RESP 18–20; TEMP 36.2–36.6; O2SAT 94–100; BMI 50.9
--- NOTE | ~2022-06-01 | XR_ITS ---
EXAMINATION: XR chest 1V portable DATE: 06/02/2022 05:59 INDICATION: Shortness of breath TECHNIQUE: frontal view of the chest was obtained. COMPARISON: Chest radiograph dated 02/06/2022 FINDINGS: Persistent bilateral perihilar predominant increased interstitial pattern consistent with mild pulmon janae edema. No more focal airspace opacities, pleural effusion or pneumothorax. The cardiomediastinal silhouette is within normal limits for AP technique. IMPRESSION: 1. Mild pulmonary edema. Reviewed, dictated and finalized at location A. IMPRESSION: 1. Mild pulmonary edema.
--- NOTE | ~2022-06-01 | US_ITS ---
US abdomen limited INDICATION: Right upper quadrant pain PROCEDURE: Realtime right upper abdominal ultrasound. COMPARISON: 07/12/2007 FINDINGS: The pancreas is normal without focal mass or pancreatic ductal dilation. Liver echotexture is increased, consistent with fatty infiltration. There is normal directional flow in the portal ve in. Gallbladder is surgically absent. Common bile duct measures 5 mm. No sonographic Guerra's sign. IMPRESSION: 1: Hepatic steatosis. 2: Gallbladder surgically absent. Reviewed, dictated and finalized at location B.
--- NOTE | ~2022-06-01 | MR_ITS ---
EXAMINATION: MR lower leg LT wo con DATE: 06/08/2022 12:44 INDICATION: Chronic wound to left lower leg with cellulitis one month prior presenting with left lowe r leg erythema, pain and swelling TECHNIQUE: Magnetic resonance imaging (MRI) of the left lower leg was performed without intravenous c ontrast. Sequences included axial, sagittal and coronal T1-weighted FSE and fluid sensitive FSE STIR. The contralateral right lower leg is included on the coronal images. COMPARISON: None. FINDINGS: Asymmetric diffuse skin thickening with subdermal and deeper subcutaneous edema throughout the visual ized left leg which extends from above the knee to just above level of the ankle. Additionally there is epimysial edema along the superficial muscular fascia most prominent along the margins of the medi al head of the gastrocnemius muscle. There is an additional feathery muscular edema at the caudal asp ect of both the medial and lateral heads of the gastrocnemius muscles. 2.7 x 2.3 x 1.2 cm Paez's cys t. Minimal left knee joint effusion at the suprapatellar pouch. No other abnormal fluid collections t o suggest abscess. Bone marrow signal is normal throughout with no fracture, reactive edema, osteomye litis or other pathologic marrow replacing process. IMPRESSION: 1. Extensive nonspecific nonloculated edema throughout the visualized left lower leg including subder mal edema, demonstrated pattern of edema throughout the subcutaneous fat, epimysial edema along the p eripheral margins of the superficial fascia which could be infectious cellulitis, reactive edema rela monica to trauma or congestive edema related to venous insufficiency. No loculated fluid collections to suggest abscess. 2. Small amount of asymmetric muscular edema at the distal gastrocnemius muscle which could be due to low-grade muscle strain or other nonspecific myositis. 3. Small Paez's cyst. Reviewed, dictated and finalized at location A. IMPRESSION: 1. Extensive nonspecific nonloculated edema throughout the visualized left lowe r leg including subdermal edema, demonstrated pattern of edema throughout the s ubcutaneous fat, epimysial edema along the peripheral margins of the superficia l fascia which could be infectious cellulitis, reactive edema related to trauma or congestive edema related to venous insufficiency. No loculated fluid collec tions to suggest abscess. 2. Small amount of asymmetric muscular edema at the distal gastrocnemius muscle which could be due to low-grade muscle strain or other nonspecific myositis. 3. Small Paez's cyst.
--- NOTE | 2022-06-01 17:41 | ED.GENADULT ---
HPI - General Adult General Chief complaint: Wound/Laceration <Erica Matthew PA-C - Last Filed: 06/01/22 21:13> Stated complaint: left leg red swollen wounds draining <Erica Matthew PA-C - Last Filed: 06/01/22 21:13> Time Seen by Provider: 06/01/22 16:56 <Erica Matthew PA-C - Last Filed: 06/01/22 21:13> Source: patient <Erica Matthew PA-C - Last Filed: 06/01/22 21:13> Mode of arrival: ambulatory <Erica Matthew PA-C - Last Filed: 06/01/22 21:13> Limitations: no limitations <Erica Matthew PA-C - Last Filed: 06/01/22 21:13> History of Present Illness HPI narrative: Patient is a 42-year-old female who presents the ED with report of left leg redness, swelling, pain. Patient reports she was diagnosed with cellulitis of her left lower anterior leg in mid April. She was placed on doxycycline at that time and completed this with improvement of her cellulitis. Near the end of April, she sustained a cat scratch to her left forearm and was placed on Augmentin at that time. Also completed this antibiotic. Over the last 3 days she reported having increased pain, redness, and swelling to her left lower leg. She states the redness began in her lower leg initially, but has progressed to involve her entire left lower leg. She does have several chronic wounds to to her left leg, which have purulent drainage today. No fevers at home. Hx of prediabetes, not on medication. Last A1C February. On Lasix 40mg daily. <Erica Matthew PA-C - Last Filed: 06/01/22 21:13> Related Data Home medications: Home Medications Medication Instructions Recorded Confirmed amlodipine 10 mg tablet 10 mg PO DAILY 10/08/21 05/14/22 ascorbic acid (vitamin C) 250 mg 250 mg PO DAILY 10/08/21 05/14/22 tablet aspirin 81 mg tablet,delayed 81 mg PO DAILY 10/08/21 05/14/22 release budesonide-formoterol HFA 160 1 inh inhalation ONCE 10/08/21 05/14/22 mcg-4.5 mcg/actuation aerosol inhaler (Symbicort) buspirone 15 mg tablet 15 mg PO BID 10/08/21 05/14/22 cholecalciferol (vitamin D3) 10 10 mcg PO DAILY 10/08/21 05/14/22 mcg (400 unit) capsule duloxetine 60 mg capsule,delayed 60 mg PO HS 10/08/21 05/14/22 release furosemide 40 mg tablet 40 mg PO QAM 10/08/21 05/14/22 gabapentin 600 mg tablet 600 mg PO DAILY 10/08/21 05/14/22 lisinopril 40 mg tablet 40 mg PO DAILY 10/08/21 05/14/22 omega-3 fatty acids 1,000 mg 1,000 mg PO DAILY 10/08/21 05/14/22 capsule (Fish Oil Concentrate) omeprazole 20 mg capsule,delayed 20 mg PO DAILY 10/08/21 05/14/22 release topiramate 50 mg tablet 50 mg PO BID 10/08/21 05/14/22 vitamin B complex (B 1 tablet PO DAILY 10/08/21 05/14/22 Complex-Vitamin B12 tablet) potassium chloride 10 mEq 1 meq PO DAILY 02/06/22 05/14/22 tablet,extended release <Erica Matthew PA-C - Last Filed: 06/01/22 21:13> Allergies/adverse reactions: Allergies Allergy/AdvReac Type Severity Reaction Status Date / Time No Known Allergies Allergy Unknown Verified 06/01/22 16:39 <Erica Matthew PA-C - Last Filed: 06/01/22 21:13> Review of Systems Review of Systems: CONSTITUTIONAL: Denies fever, chills, or sweats. CARDIOVASCULAR: Denies chest pain. RESPIRATORY: Denies dyspnea. GASTROINTESTINAL: Denies nausea, vomiting. SKIN: Reports redness and swelling to L lower leg. MUSCULOSKELETAL: Reports pain to L lower leg. NEUROLOGIC: Denies tingling, numbness, or weakness. <Erica Matthew PA-C - Last Filed: 06/01/22 21:13> All systems reviewed & are unremarkable except as noted in HPI and below <Erica Matthew PA-C - Last Filed: 06/01/22 21:13> [facility] Past Medical History Medical History: Medical History (Updated 06/01/22 @ 19:05 by Erica Matthew PA-C) Anxiety COPD (chronic obstructive pulmonary disease) GERD (gastroesophageal reflux disease) Hypertension Lower extremity edema Neuropathy Prediabetes <Erica Matthew PA-C - Last Filed: 06/01/22 21:13> Surgical History Surgical
[2022-06-01 17:46] LABS: Basophils Absolute Auto 0.1 K/mm3 (0.0-0.1); Basophils Percent Auto 0.4 % (0.2-1.2); Eosinophils Absolute Auto 0.5 K/mm3 (0-0.3); Eosinophils Percent Auto 2.5 % (0-4.4); Hemoglobin 13.2 g/dL (12.0-15.0); Immature Granulocyte Absolute 0.63 K/mm3 (0.00-0.031); Immature Granulocyte Percent A 3.1 % (0-0.5); Lymphocytes Absolute Auto 2.02 K/mm3 (0.9-3.2); Lymphocytes Percent Auto 9.9 % (18.3-44.2); Mean Corpuscular Hemoglobin 29.8 pg (26-34); Mean Corpuscular Volume 90.3 fl (80-100); Mean Platelet Volume 10.9 fl (7.4-10.4); Monocytes Absolute Auto 0.9 K/mm3 (0.1-0.6); Monocytes Percent Auto 4.2 % (2.6-8.5); Neutrophils Absolute Auto 16.2 K/mm3 (1.3-6.7); Neutrophils Percent Auto 79.9 % (45.5-73.1); Platelet Count Result 284 k/mm3 (150-375); Red Blood Count 4.43 M/mm3 (4.2-5.4); Red Cell Distribution Width 18.2 % (11.5-14.5); White Blood Count 20.3 K/mm3 (4.5-10.0)
[2022-06-01 18:29] LABS: Erythrocyte Sedimentation Rate 62 mm/hr (0-20)
[2022-06-01 18:41] LABS: Alanine Aminotransferase 118 U/L (6-35); Albumin Level 3.5 g/dL (3.5-5.1); Alkaline Phosphatase 143 U/L (38-126); Anion Gap 11 mmol/L (8-16); Aspartate Amino Transferase 39 U/L (14-36); Bilirubin,Total 0.6 mg/dL (0.2-1.3); Blood Urea Nitrogen 26 mg/dL (7-17); Calcium 8.8 mg/dL (8.4-10.2); Carbon Dioxide 23 mmol/L (22-30); Chloride 103 mmol/L (98-107); Estimated CRCL calculation 58 ml/min; Estimated Glomerular Filt Rate 36; Glucose 110 mg/dL (65-110); Potassium 3.6 mmol/L (3.4-5.0); Sodium 137 mmol/L (137-145)
[2022-06-01 18:42] LABS: Hemoglobin A1C 5.9 % (<5.7)
[2022-06-01 18:59] LABS: CRP 22.6 mg/dL (<1.0)
[2022-06-01] MEDS: MORPHINE SULFATE (*CRX) 4 MG/ML INJ IV PUSH (19:41)
[2022-06-01] MEDS: ONDANSETRON INJ 4 MG/2 ML VIAL IV PUSH (19:41)
[2022-06-01 19:42] LABS: SARS-CoV-2 RNA PCR Negative
[2022-06-01 19:46] LABS: Lactic Acid Reflex 1.3 mmol/L (0.7-2.0)
--- NOTE | 2022-06-01 21:22 | ADMGEN ---
This patient, Hilda Amanda, was admitted to 3 Med Surg Room 310-01 @2110. Patient/family oriented to hospital policies and general routines including ID bracelet, bed and alarms, visiting hours, pain management, procedures, bathroom and other care routines, personal items, smoking policy, room service/diet, and visiting hours. Information on how to activate the Rapid Response Team has been discussed. Patient/Family are encouraged to report perceived risks to care and to ask questions if they do not understand what they are told or what they should do.
[2022-06-02] MEDS: HYDROcodone/acetaminophen (*CRX) 5-325 MG TABLET 1 TAB PO ×4 (00:01→18:28)
--- NOTE | 2022-06-02 02:06 | PM.IMHP ---
H&P: HPI History of Present Illness Date/Time: 06/02/22 02:06 Chief Complaint: Left lower extremity cellulitis Narrative: Greater than 30 minutes spent reviewing chart, evaluating, treating, counseling patient. Anticipate less than 48 hour admission, will admit under observation. 42-year-old female past medical history of morbid obesity, anxiety, COPD, GERD, prediabetes, hypertension. presents with worsening left lower extremity cellulitis since Tuesday. Patient reports a few weeks ago she noted a lesion on her left dickerson that was treated with doxycycline, which she completed a couple weeks ago. She noted improvement with taking antibiotics. On Tuesday, however, she noted purulence drainage of orange fluid from her left dickerson with a small area of erythema. By Tuesday it extended a little more up the dickerson. By Tuesday she noted erythema had extended into her foot and slightly above her knee with tenderness. Patient reports chills, however has had normal temperatures. Denies shortness of breath, chest pain, diarrhea/ constipation, trouble urinating, dysuria/ hematuria. Patient reports she had nausea / vomiting on Tuesday, 2 episodes. This is now resolved. Patient also had left forearm cellulitis 2 weeks ago due to a cat scratch, was evaluated in the ED and given Augmentin. This lesion is now resolved, however she reports a new lesion on her forearm after scratching due to pruritus. Patient had recently switched her laundry detergent and had a bad reaction all over her body for which she was given a Medrol Dosepak, hydrocortisone cream, and Benadryl. She reports improvement in all of her symptoms after taking these. In ED, vitals stable. Patient is afebrile. Labs remarkable for white count of 20.3. Creatinine 1.6, prior creatinine noted to be 0.8. AST/ ALT 39/118, alk-phos 143. Patient is status post cholecystectomy earlier this year. Blood cultures obtained, patient given a dose of cefazolin. Review of Systems Review of Systems: Ten point ROS obtained, negative unless otherwise specified per HPI [facility] Past Medical History Medical History (Updated 06/02/22 @ 02:35 by Samuel Jones DO) Anxiety COPD (chronic obstructive pulmonary disease) GERD (gastroesophageal reflux disease) Hypertension Lower extremity edema Neuropathy Prediabetes Surgical History Surgical History H/O umbilical hernia repair 11/16/21 H/O: hysterectomy Hx laparoscopic cholecystectomy 11/16/21 Family History Family History (Updated 06/01/22 @ 21:26 by RENETTA Aguila) Father Hypertension Mother Depression Heart disease Hypertension Grandparent Diabetes mellitus Social History Social History Smoking packs per day: 1 Smoking cigarettes per day: 20.0 Years smoked: 26 Smoking pack-years: 26.00 Smoking status: Current every day smoker Tobacco type: cigarettes Alcohol intake: current Drinks per week: 1 Substance use: current Substance use type: marijuana Other substance usage details: EVERY ONCE IN A WHILE Spiritual care concerns: No Meds Home Medications and Allergies Home Medications Medication Instructions Recorded Confirmed Type amlodipine 10 mg tablet 10 mg PO DAILY 10/08/21 06/01/22 History ascorbic acid (vitamin C) 250 mg 250 mg PO DAILY 10/08/21 06/01/22 History tablet aspirin 81 mg tablet,delayed 81 mg PO DAILY 10/08/21 06/01/22 History release budesonide-formoterol HFA 160 1 inh inhalation DAILY 10/08/21 06/01/22 History mcg-4.5 mcg/actuation aerosol inhaler (Symbicort) buspirone 15 mg tablet 15 mg PO BID 10/08/21 06/01/22 History duloxetine 60 mg capsule,delayed 60 mg PO HS 10/08/21 06/01/22 History release furosemide 40 mg tablet 40 mg PO QAM 10/08/21 06/01/22 History lisinopril 40 mg tablet 40 mg PO DAILY 10/08/21 06/01/22 History omega-3 fatty acids 1,
[2022-06-02] MEDS: LACTATED RINGERS 1,000 ML 100 ML IV CONT (02:14)
[2022-06-02 04:00] VITALS: BP 110/67; PULSE 87; RESP 20; TEMP 36.1; O2SAT 98
[2022-06-02] MEDS: hydrOXYzine HCL 25 MG TABLET 50 MG PO ×2 (06:23→21:37)
[2022-06-02 07:18] LABS: Basophils Absolute Auto 0.1 K/mm3 (0.0-0.1); Basophils Percent Auto 0.6 % (0.2-1.2); Eosinophils Absolute Auto 0.6 K/mm3 (0-0.3); Eosinophils Percent Auto 3.2 % (0-4.4); Hematocrit 36.5 % (37.0-47.0); Hemoglobin 11.8 g/dL (12.0-15.0); Immature Granulocyte Absolute 0.61 K/mm3 (0.00-0.031); Immature Granulocyte Percent A 3.4 % (0-0.5); Lymphocytes Absolute Auto 2.52 K/mm3 (0.9-3.2); Lymphocytes Percent Auto 14.1 % (18.3-44.2); Mean Corpuscular HGB Conc 32.3 g/dl (32-36); Mean Corpuscular Hemoglobin 29.6 pg (26-34); Mean Corpuscular Volume 91.5 fl (80-100); Mean Platelet Volume 10.7 fl (7.4-10.4); Monocytes Absolute Auto 1.1 K/mm3 (0.1-0.6); Monocytes Percent Auto 6.1 % (2.6-8.5); Neutrophils Percent Auto 72.6 % (45.5-73.1); Platelet Count Result 263 k/mm3 (150-375); Red Blood Count 3.99 M/mm3 (4.2-5.4); Red Cell Distribution Width 17.9 % (11.5-14.5); White Blood Count 17.9 K/mm3 (4.5-10.0)
[2022-06-02 07:35] LABS: INR 1.1; Prothrombin Time 14.2 Seconds (11.1-14.7)
[2022-06-02 07:36] LABS: Alanine Aminotransferase 100 U/L (6-35); Albumin Level 3.1 g/dL (3.5-5.1); Alkaline Phosphatase 150 U/L (38-126); Anion Gap 11 mmol/L (8-16); Aspartate Amino Transferase 35 U/L (14-36); Bilirubin,Total 0.5 mg/dL (0.2-1.3); Blood Urea Nitrogen 21 mg/dL (7-17); Calcium 8.5 mg/dL (8.4-10.2); Carbon Dioxide 22 mmol/L (22-30); Chloride 101 mmol/L (98-107); Estimated CRCL calculation 82 ml/min; Estimated Glomerular Filt Rate 55; Glucose 101 mg/dL (65-110); Potassium 3.3 mmol/L (3.4-5.0); Sodium 134 mmol/L (137-145)
[2022-06-02 08:40] VITALS: BP 119/62; PULSE 79; RESP 20; TEMP 36.7; O2SAT 99
[2022-06-02] MEDS: PANTOPRAZOLE 40 MG TABLET PO (09:26)
[2022-06-02] MEDS: busPIRone HCL 5 MG TABLET 15 MG PO ×2 (09:26→16:39)
[2022-06-02] MEDS: methocarbamoL 750 MG TABLET PO ×3 (09:27→16:39)
[2022-06-02] MEDS: ASPIRIN 81 MG ENTERIC TABLET PO (09:27)
[2022-06-02] MEDS: HEPARIN SODIUM 5,000 UNITS/ML VIAL 5000 UNITS SUB-Q ×2 (09:27→21:37)
[2022-06-02] MEDS: POTASSIUM CHLORIDE 20 MEQ PACKET (FOR LIQUID) PO (09:27)
[2022-06-02 10:06] VITALS: PULSE 85; RESP 18
[2022-06-02] MEDS: FLUTICASONE/SALMETEROL 45-21 MCG INHALER 1 PUFF 2 PUFF INHALATION ×2 (10:06→20:30)
[2022-06-02 12:00] VITALS: BP 132/70; PULSE 84; RESP 20; TEMP 36.3; O2SAT 100
[2022-06-02] MEDS: cefTRIAXone 2 GM in SODIUM CHLORIDE 0.9% IV 100 ML 200 ML IVPB (12:54)
--- NOTE | 2022-06-02 13:56 | P.PNIM_ITS ---
Progress Note: A&P Assessment and Plan (1) Cellulitis of left lower extremity: Code(s): L03.116 - Cellulitis of left lower limb Status: Acute Assessment and Plan: Severe, purulent cellulitis onset 1 month ago, failed outpatient doxycycline * Continue vancomycin * Wound cultures pending * Blood cultures pending * Appreciate wound care evaluation * Close monitoring. Continue daily examination of left lower extremity * Elevate extremity * Supportive care. Analgesics as needed (2) Acute kidney injury: Code(s): N17.9 - Acute kidney failure, unspecified Status: Acute Assessment and Plan: Secondary to acute infection vs medication use * Creatinine has improved following IV fluid hydration. 1.1 today * Will discontinue IV fluids to avoid volume overload * Discontinue ibuprofen * Hold home lisinopril and furosemide. Plan to resume tomorrow if renal function remains stable/improved * Monitor BMP (3) Lower extremity edema: Code(s): R60.0 - Localized edema Status: Acute Assessment and Plan: Chronic, bilateral. Left lower extremity acutely worsened secondary to cellulitis * Patient reports no change of right lower extremity edema. Relates this to CHF * Resume diuretics when clinically appropriate * Elevate extremities (4) Elevated LFTs: Code(s): R79.89 - Other specified abnormal findings of blood chemistry Status: Acute Assessment and Plan: AST normalized, slight improvement in ALT. Total bilirubin is normal * Right upper quadrant ultrasound with hepatic steatosis. She is s/p cholecystectomy * Trend LFTs * No RUQ tenderness on exam (5) Prediabetes: Code(s): R73.03 - Prediabetes Status: Acute Assessment and Plan: A1c is 5.9 * No need for further monitoring (6) Hypertension: Code(s): I10 - Essential (primary) hypertension Status: Acute Assessment and Plan: Blood pressures reviewed and have been stable. Last BP 132/70 * Lisinopril on hold due to LEIDA * Resume when clinically appropriate * Monitor BP trends (7) COPD (chronic obstructive pulmonary disease): Qualifiers: COPD type: unspecified COPD Qualified Code(s): J44.9 - Chronic obstructive pulmonary disease, unspecified Code(s): J44.9 - Chronic obstructive pulmonary disease, unspecified Status: Acute Assessment and Plan: Not in acute exacerbation * Albuterol inhaler as needed * Continue home Advair Plan Of note, patient with recent left forearm cellulitis 2 weeks ago following cat scratch, completed course of Augmentin and this has resolved. Recent diffuse allergic reaction secondary to new laundry detergent 1 week ago treated with Medrol Dosepak, hydrocortisone cream, and Benadryl with resolution of symptoms. Subjective Date/time seen: 06/02/22 13:56 Interval history: Date of service: 06/02/2022 Hilda Amanda is a 42-year-old female with a history of COPD, hypertension, CHF, chronic edema of lower extremities, prediabetes, and anxiety who is seen in follow-up for left lower extremity cellulitis. The patient states she has not noticed much improvement today other than her leg is draining less. She feels that her swelling is unchanged and there is no change in the redness. She reports 8/10 pain of the leg. She endorses chills but no fevers. Denies nausea or vomiting. Denies shortness of breath, cough, chest pain, palpitations. She is tolerating her diet. She is able to get u
--- NOTE | 2022-06-02 13:56 | PM.IMPN ---
Progress Note: A&P Assessment and Plan (1) Cellulitis of left lower extremity: Code(s): L03.116 - Cellulitis of left lower limb Status: Acute Assessment and Plan: Severe, purulent cellulitis onset 1 month ago, failed outpatient doxycycline Continue vancomycin Wound cultures pending Blood cultures pending Appreciate wound care evaluation Close monitoring. Continue daily examination of left lower extremity Elevate extremity Supportive care. Analgesics as needed (2) Acute kidney injury: Code(s): N17.9 - Acute kidney failure, unspecified Status: Acute Assessment and Plan: Secondary to acute infection vs medication use Creatinine has improved following IV fluid hydration. 1.1 today Will discontinue IV fluids to avoid volume overload Discontinue ibuprofen Hold home lisinopril and furosemide. Plan to resume tomorrow if renal function remains stable/improved Monitor BMP (3) Lower extremity edema: Code(s): R60.0 - Localized edema Status: Acute Assessment and Plan: Chronic, bilateral. Left lower extremity acutely worsened secondary to cellulitis Patient reports no change of right lower extremity edema. Relates this to CHF Resume diuretics when clinically appropriate Elevate extremities (4) Elevated LFTs: Code(s): R79.89 - Other specified abnormal findings of blood chemistry Status: Acute Assessment and Plan: AST normalized, slight improvement in ALT. Total bilirubin is normal Right upper quadrant ultrasound with hepatic steatosis. She is s/p cholecystectomy Trend LFTs No RUQ tenderness on exam (5) Prediabetes: Code(s): R73.03 - Prediabetes Status: Acute Assessment and Plan: A1c is 5.9 No need for further monitoring (6) Hypertension: Code(s): I10 - Essential (primary) hypertension Status: Acute Assessment and Plan: Blood pressures reviewed and have been stable. Last BP 132/70 Lisinopril on hold due to LEIDA Resume when clinically appropriate Monitor BP trends (7) COPD (chronic obstructive pulmonary disease): Qualifiers: COPD type: unspecified COPD Qualified Code(s): J44.9 - Chronic obstructive pulmonary disease, unspecified Code(s): J44.9 - Chronic obstructive pulmonary disease, unspecified Status: Acute Assessment and Plan: Not in acute exacerbation Albuterol inhaler as needed Continue home Advair Plan Of note, patient with recent left forearm cellulitis 2 weeks ago following cat scratch, completed course of Augmentin and this has resolved. Recent diffuse allergic reaction secondary to new laundry detergent 1 week ago treated with Medrol Dosepak, hydrocortisone cream, and Benadryl with resolution of symptoms. Subjective Date/time seen: 06/02/22 13:56 Interval history: Date of service: 06/02/2022 Hilda Amanda is a 42-year-old female with a history of COPD, hypertension, CHF, chronic edema of lower extremities, prediabetes, and anxiety who is seen in follow-up for left lower extremity cellulitis. The patient states she has not noticed much improvement today other than her leg is draining less. She feels that her swelling is unchanged and there is no change in the redness. She reports 8/10 pain of the leg. She endorses chills but no fevers. Denies nausea or vomiting. Denies shortness of breath, cough, chest pain, palpitations. She is tolerating her diet. She is able to get up and ambulate independently. She denies urinary symptoms. Review of Systems Review of Systems: All systems reviewed & are unremarkable except as noted in HPI and below Exam Narrative: General: Obese, well-appearing 42year-old female, sitting up in bed, comfortable, NARD Neuro: awake, alert and oriented x4, speech clear, no focal neuro deficits noted HEENMT: normocephalic, atraumatic, EOMI, sclerae anicteric, moist oral mucosa Re
--- NOTE | 2022-06-02 15:17 | PC.NURSE ---
Pt came in for cellulitis in left leg, right calf, and left arm. Pt has open spots on left leg that have a yellow bed. pt states she does have an 8/10 pain when it is really bad. Pt has had family at bedside for part of the day. Pt compliant with medication. Will continue to monitor.
[2022-06-02 16:13] VITALS: BP 109/61; PULSE 81; RESP 24; TEMP 36.9; O2SAT 94
[2022-06-02 20:00] VITALS: BP 132/73; PULSE 88; RESP 18; TEMP 36.8; O2SAT 96
[2022-06-02] MEDS: ACETAMINOPHEN 325 MG TABLET 650 MG PO (21:37)
[2022-06-03] VITALS: BP 142/79; PULSE 86; RESP 18; TEMP 36.9; O2SAT 95
[2022-06-03] MEDS: HYDROcodone/acetaminophen (*CRX) 5-325 MG TABLET 1 TAB PO ×4 (00:27→18:38)
[2022-06-03 04:00] VITALS: BP 117/62; PULSE 78; RESP 16; TEMP 36.3; O2SAT 95
--- NOTE | 2022-06-03 04:05 | ECG_ITS ---
Measurements Intervals Hannah Rate: 80 P: 52 NJ: 142 QRS: 8 QRSD: 96 T: 21 QT: 350 QTc: 404 Interpretive Statements SINUS RHYTHM VOLTAGE CRITERIA FOR LVH [MEETS CRITERIA IN ONE OF: R(aVL), S(V1), R(V5), R(V5/V6)+S(V1)] ABNORMAL ECG COMPARED TO ECG 02/06/2022 14:27:52 NO SIGNIFICANT CHANGES Electronically Signed On 06-03-2022 9:38:50 CDT by Jabari Barker M.D.
[2022-06-03] MEDS: ONDANSETRON INJ 4 MG/2 ML VIAL IV PUSH (04:29)
[2022-06-03] MEDS: hydrOXYzine HCL 25 MG TABLET 50 MG PO ×4 (06:36→20:37)
[2022-06-03 06:53] LABS: Hematocrit 36.2 % (37.0-47.0); Hemoglobin 11.8 g/dL (12.0-15.0); Mean Corpuscular HGB Conc 32.6 g/dl (32-36); Mean Corpuscular Hemoglobin 29.7 pg (26-34); Mean Corpuscular Volume 91.2 fl (80-100); Mean Platelet Volume 10.5 fl (7.4-10.4); Platelet Count Result 257 k/mm3 (150-375); Red Blood Count 3.97 M/mm3 (4.2-5.4); Red Cell Distribution Width 17.8 % (11.5-14.5); White Blood Count 15.1 K/mm3 (4.5-10.0)
[2022-06-03 07:14] LABS: Alanine Aminotransferase 134 U/L (6-35); Albumin Level 3.1 g/dL (3.5-5.1); Alkaline Phosphatase 179 U/L (38-126); Anion Gap 7 mmol/L (8-16); Aspartate Amino Transferase 62 U/L (14-36); Bilirubin,Total 0.7 mg/dL (0.2-1.3); Blood Urea Nitrogen 10 mg/dL (7-17); Calcium 8.2 mg/dL (8.4-10.2); Carbon Dioxide 25 mmol/L (22-30); Chloride 104 mmol/L (98-107); Estimated CRCL calculation 99 ml/min; Estimated Glomerular Filt Rate > 60; Glucose 110 mg/dL (65-110); Potassium 3.8 mmol/L (3.4-5.0); Sodium 136 mmol/L (137-145)
[2022-06-03 07:33] LABS: Band Neutrophils Percent 2 % (0-6); Basophils Absolute Manual 0.15 K/mm3 (0.0-0.1); Basophils Percent Manual 1 % (0-1); Eosinophils Absolute Manual 0.75 K/mm3 (0.02-0.5); Eosinophils Percent Manual 5 % (0-4); Lymphocytes Absolute Manual 1.81 K/mm3 (1.1-4.5); Metamyelocytes Percent 2 %; Monocytes Absolute Manual 0.75 K/mm3 (0.1-0.90); Monocytes Percent Manual 5 % (3-9); Neutrophils Absolute Manual 11.32 K/mm3 (1.7-7.2); Neutrophils Percent Manual 73 % (46-73); Platelet Estimate Adequate (Adequate); Total Cells Counted 100
[2022-06-03 08:00] VITALS: BP 136/75; PULSE 90; RESP 14; TEMP 36.6; O2SAT 95
[2022-06-03] MEDS: FLUTICASONE/SALMETEROL 45-21 MCG INHALER 1 PUFF 2 PUFF INHALATION (08:07)
[2022-06-03] MEDS: PANTOPRAZOLE 40 MG TABLET PO (08:38)
[2022-06-03] MEDS: methocarbamoL 750 MG TABLET PO ×3 (08:38→17:05)
[2022-06-03] MEDS: busPIRone HCL 5 MG TABLET 15 MG PO ×2 (08:39→17:06)
[2022-06-03] MEDS: ASPIRIN 81 MG ENTERIC TABLET PO (08:39)
[2022-06-03] MEDS: HEPARIN SODIUM 5,000 UNITS/ML VIAL 5000 UNITS SUB-Q ×2 (08:39→20:37)
[2022-06-03] MEDS: cefTRIAXone 2 GM in SODIUM CHLORIDE 0.9% IV 100 ML 200 ML IVPB (11:43)
[2022-06-03 12:00] VITALS: BP 107/63; PULSE 86; RESP 14; TEMP 36.9; O2SAT 94
--- NOTE | 2022-06-03 15:57 | P.PNIM_ITS ---
Progress Note: A&P Assessment and Plan (1) Cellulitis of left lower extremity: Code(s): L03.116 - Cellulitis of left lower limb Status: Acute Assessment and Plan: Severe, purulent cellulitis onset 1 month ago, failed outpatient doxycycline * Continue vancomycin and Rocephin 2 g daily * Wound cultures pending, preliminary results of heavy growth of Staphylococcus aureus and group G Streptococcus. Susceptibility results pending * Blood cultures pending, negative today * Appreciate wound care evaluation * Close monitoring. Continue daily examination of left lower extremity * Elevate extremity * Supportive care. Analgesics as needed * WBC and CRP trending down. Patient afebrile. (2) Acute kidney injury: Code(s): N17.9 - Acute kidney failure, unspecified Status: Acute Assessment and Plan: Resolved. Secondary to acute infection vs medication use * Creatinine has improved following IV fluid hydration. 0.9 today * IV fluids discontinued on 06/02 to avoid volume overload * Ibuprofen discontinued * Lisinopril and furosemide held. Will resume at this time * Monitor BMP (3) Lower extremity edema: Code(s): R60.0 - Localized edema Status: Acute Assessment and Plan: Chronic, bilateral. Left lower extremity acutely worsened secondary to cellulitis * Patient reports no change of right lower extremity edema. Relates this to CHF * Resume home Lasix 40 mg daily * Elevate extremities (4) Elevated LFTs: Code(s): R79.89 - Other specified abnormal findings of blood chemistry Status: Acute Assessment and Plan: Mildly elevated * Right upper quadrant ultrasound with hepatic steatosis. She is s/p cholecystectomy * Trend LFTs * Will obtain hepatitis panel in morning labs for full evaluation * No RUQ tenderness on exam (5) Prediabetes: Code(s): R73.03 - Prediabetes Status: Acute Assessment and Plan: A1c is 5.9 * No need for further monitoring (6) Hypertension: Code(s): I10 - Essential (primary) hypertension Status: Acute Assessment and Plan: Blood pressures reviewed and have been stable. Last BP 107/63 * Resume home lisinopril * Amlodipine on hold * Monitor BP trends (7) COPD (chronic obstructive pulmonary disease): Qualifiers: COPD type: unspecified COPD Qualified Code(s): J44.9 - Chronic obstructive pulmonary disease, unspecified Code(s): J44.9 - Chronic obstructive pulmonary disease, unspecified Status: Acute Assessment and Plan: Not in acute exacerbation * Albuterol inhaler as needed * Continue home Advair Plan Of note, patient with recent left forearm cellulitis 2 weeks ago following cat scratch, completed course of Augmentin and this has resolved. Recent diffuse allergic reaction secondary to new laundry detergent 1 week ago treated with Medrol Dosepak, hydrocortisone cream, and Benadryl with resolution of symptoms. Subjective Date/time seen: 06/03/22 15:57 Interval history: Date of service: 06/03/2022 Hilda Amanda is a 42-year-old female with a history of COPD, hypertension, CHF, chronic edema of lower extremities, prediabetes, and anxiety who is seen in follow-up for left lower extremity cellulitis. She notes little to no improvement of her redness and swelling of her leg. She states she is having some more drainage today of clear liquid. She denies fever or chills. She states her left forearm is nearly back to normal. She alexander
--- NOTE | 2022-06-03 15:57 | PM.IMPN ---
Progress Note: A&P Assessment and Plan (1) Cellulitis of left lower extremity: Code(s): L03.116 - Cellulitis of left lower limb Status: Acute Assessment and Plan: Severe, purulent cellulitis onset 1 month ago, failed outpatient doxycycline Continue vancomycin and Rocephin 2 g daily Wound cultures pending, preliminary results of heavy growth of Staphylococcus aureus and group G Streptococcus. Susceptibility results pending Blood cultures pending, negative today Appreciate wound care evaluation Close monitoring. Continue daily examination of left lower extremity Elevate extremity Supportive care. Analgesics as needed WBC and CRP trending down. Patient afebrile. (2) Acute kidney injury: Code(s): N17.9 - Acute kidney failure, unspecified Status: Acute Assessment and Plan: Resolved. Secondary to acute infection vs medication use Creatinine has improved following IV fluid hydration. 0.9 today IV fluids discontinued on 06/02 to avoid volume overload Ibuprofen discontinued Lisinopril and furosemide held. Will resume at this time Monitor BMP (3) Lower extremity edema: Code(s): R60.0 - Localized edema Status: Acute Assessment and Plan: Chronic, bilateral. Left lower extremity acutely worsened secondary to cellulitis Patient reports no change of right lower extremity edema. Relates this to CHF Resume home Lasix 40 mg daily Elevate extremities (4) Elevated LFTs: Code(s): R79.89 - Other specified abnormal findings of blood chemistry Status: Acute Assessment and Plan: Mildly elevated Right upper quadrant ultrasound with hepatic steatosis. She is s/p cholecystectomy Trend LFTs Will obtain hepatitis panel in morning labs for full evaluation No RUQ tenderness on exam (5) Prediabetes: Code(s): R73.03 - Prediabetes Status: Acute Assessment and Plan: A1c is 5.9 No need for further monitoring (6) Hypertension: Code(s): I10 - Essential (primary) hypertension Status: Acute Assessment and Plan: Blood pressures reviewed and have been stable. Last BP 107/63 Resume home lisinopril Amlodipine on hold Monitor BP trends (7) COPD (chronic obstructive pulmonary disease): Qualifiers: COPD type: unspecified COPD Qualified Code(s): J44.9 - Chronic obstructive pulmonary disease, unspecified Code(s): J44.9 - Chronic obstructive pulmonary disease, unspecified Status: Acute Assessment and Plan: Not in acute exacerbation Albuterol inhaler as needed Continue home Advair Plan Of note, patient with recent left forearm cellulitis 2 weeks ago following cat scratch, completed course of Augmentin and this has resolved. Recent diffuse allergic reaction secondary to new laundry detergent 1 week ago treated with Medrol Dosepak, hydrocortisone cream, and Benadryl with resolution of symptoms. Subjective Date/time seen: 06/03/22 15:57 Interval history: Date of service: 06/03/2022 Hilda Amanda is a 42-year-old female with a history of COPD, hypertension, CHF, chronic edema of lower extremities, prediabetes, and anxiety who is seen in follow-up for left lower extremity cellulitis. She notes little to no improvement of her redness and swelling of her leg. She states she is having some more drainage today of clear liquid. She denies fever or chills. She states her left forearm is nearly back to normal. She denies pain, drainage, pruritus. Appetite is good. No nausea, vomiting. Denies dizziness, lightheadedness, weakness, shortness breath, cough, chest pain. Review of Systems Review of Systems: All systems reviewed & are unremarkable except as noted in HPI and below Exam Narrative: General: Obese, well-appearing 42year-old female, sitting up in bed, comfortable, NARD Neuro: awake, alert and oriented x4, speech clear, no focal neuro deficits
[2022-06-03 16:00] VITALS: BP 102/50; PULSE 88; RESP 14; TEMP 36.8; O2SAT 92
[2022-06-03] MEDS: TOPIRAMATE 25 MG TABLET 50 MG PO (17:05)
[2022-06-03] MEDS: GABAPENTIN 300 MG CAPSULE PO (17:05)
[2022-06-03 20:00] VITALS: BP 117/64; PULSE 88; RESP 19; TEMP 36.9; O2SAT 97
[2022-06-03] MEDS: FLUTICASONE/SALMETEROL 115-21 MCG INHALER 1 PUFF 2 PUFF INHALATION (20:09)
[2022-06-03] MEDS: DULoxetine HCL 60 MG CAPSULE.DR PO (20:37)
[2022-06-03] MEDS: ACETAMINOPHEN 325 MG TABLET 650 MG PO (20:37)
[2022-06-04] VITALS: BP 137/67; PULSE 97; RESP 18; TEMP 36.1; O2SAT 95
[2022-06-04] MEDS: HYDROcodone/acetaminophen (*CRX) 5-325 MG TABLET 1 TAB PO ×4 (00:31→20:08)
[2022-06-04 04:00] VITALS: BP 114/58; PULSE 85; RESP 20; TEMP 36.1; O2SAT 94
[2022-06-04] MEDS: hydrOXYzine HCL 25 MG TABLET 50 MG PO ×3 (06:32→20:08)
[2022-06-04 07:31] LABS: Basophils Percent Auto 0.3 % (0.2-1.2); Eosinophils Absolute Auto 0.5 K/mm3 (0-0.3); Eosinophils Percent Auto 3.4 % (0-4.4); Hematocrit 33.4 % (37.0-47.0); Hemoglobin 10.8 g/dL (12.0-15.0); Immature Granulocyte Absolute 1.65 K/mm3 (0.00-0.031); Immature Granulocyte Percent A 10.9 % (0-0.5); Lymphocytes Absolute Auto 2.09 K/mm3 (0.9-3.2); Lymphocytes Percent Auto 13.9 % (18.3-44.2); Mean Corpuscular HGB Conc 32.3 g/dl (32-36); Mean Corpuscular Hemoglobin 29.1 pg (26-34); Mean Platelet Volume 10.5 fl (7.4-10.4); Monocytes Absolute Auto 1.3 K/mm3 (0.1-0.6); Monocytes Percent Auto 8.4 % (2.6-8.5); Neutrophils Absolute Auto 9.5 K/mm3 (1.3-6.7); Neutrophils Percent Auto 63.1 % (45.5-73.1); Platelet Count Result 255 k/mm3 (150-375); Red Blood Count 3.71 M/mm3 (4.2-5.4); Red Cell Distribution Width 17.6 % (11.5-14.5); White Blood Count 15.1 K/mm3 (4.5-10.0)
[2022-06-04 07:51] LABS: Alanine Aminotransferase 116 U/L (6-35); Alkaline Phosphatase 169 U/L (38-126); Anion Gap 8 mmol/L (8-16); Aspartate Amino Transferase 46 U/L (14-36); Bilirubin,Total 0.6 mg/dL (0.2-1.3); Blood Urea Nitrogen 8 mg/dL (7-17); Calcium 8.6 mg/dL (8.4-10.2); Carbon Dioxide 24 mmol/L (22-30); Chloride 101 mmol/L (98-107); Estimated CRCL calculation 125 ml/min; Estimated Glomerular Filt Rate > 60; Glucose 113 mg/dL (65-110); Potassium 3.7 mmol/L (3.4-5.0); Sodium 133 mmol/L (137-145)
[2022-06-04 08:00] VITALS: BP 120/56; PULSE 81; RESP 18; TEMP 36.6; O2SAT 93
[2022-06-04] MEDS: FLUTICASONE/SALMETEROL 115-21 MCG INHALER 1 PUFF 2 PUFF INHALATION ×2 (08:01→20:25)
[2022-06-04 08:32] LABS: Hepatitis B Surface Antigen Negative (Negative)
[2022-06-04 08:37] LABS: HAV RESULT Negative (Negative); Hepatitis B Core IgM Result Negative (Negative)
[2022-06-04 08:49] LABS: Hepatitis C Virus Antibody Negative (Negative)
[2022-06-04] MEDS: TOPIRAMATE 25 MG TABLET 50 MG PO ×2 (09:29→17:47)
[2022-06-04] MEDS: ASPIRIN 81 MG ENTERIC TABLET PO (09:29)
[2022-06-04] MEDS: POTASSIUM CHLORIDE 10 MEQ TABLET.ER PO ×3 (09:29→17:47)
[2022-06-04] MEDS: VITAMIN B COMPLEX CAPSULE 1 CAP PO (09:29)
[2022-06-04] MEDS: lisinopriL 20 MG TABLET 40 MG PO (09:29)
[2022-06-04] MEDS: busPIRone HCL 5 MG TABLET 15 MG PO ×2 (09:29→17:47)
[2022-06-04] MEDS: methocarbamoL 750 MG TABLET PO ×3 (09:29→17:47)
[2022-06-04] MEDS: PANTOPRAZOLE 40 MG TABLET PO (09:29)
[2022-06-04] MEDS: FLUTICASONE PROPIONATE 0.05% NA SPR 16 GM BTL (*BKC) 1 SPRAY NASAL (09:30)
[2022-06-04] MEDS: GABAPENTIN 300 MG CAPSULE PO ×3 (09:30→17:47)
[2022-06-04] MEDS: HEPARIN SODIUM 5,000 UNITS/ML VIAL 5000 UNITS SUB-Q ×2 (09:30→20:08)
[2022-06-04] MEDS: FUROSEMIDE 40 MG TABLET PO (09:30)
--- NOTE | 2022-06-04 11:28 | P.PNIM_ITS ---
Progress Note: A&P Assessment and Plan (1) Cellulitis of left lower extremity: Code(s): L03.116 - Cellulitis of left lower limb Status: Acute Assessment and Plan: Severe, purulent cellulitis onset 1 month ago, failed outpatient doxycycline * Continue vancomycin and Rocephin 2 g daily * Wound cultures pending, preliminary results of heavy growth of Staphylococcus aureus and group G Streptococcus. Susceptibility results pending * Blood cultures pending, negative today * Appreciate wound care evaluation * Close monitoring. Continue daily examination of left lower extremity * Elevate extremity * Supportive care. Analgesics as needed * WBC and CRP trending down. Patient afebrile. (2) Acute kidney injury: Code(s): N17.9 - Acute kidney failure, unspecified Status: Acute Assessment and Plan: Resolved. Secondary to acute infection vs medication use * Creatinine has improved following IV fluid hydration. 06/01 1.6, 06/03 0.7, 06/04 0.9 * IV fluids discontinued on 06/02 to avoid volume overload * Ibuprofen discontinued * Lisinopril and furosemide 06/01, resumed 06/03 * Monitor BMP (3) Lower extremity edema: Code(s): R60.0 - Localized edema Status: Acute Assessment and Plan: Chronic, bilateral. Left lower extremity acutely worsened secondary to cellulitis * Patient reports no change of right lower extremity edema. Relates this to CHF * Resume home Lasix 40 mg daily * Elevate extremities (4) Elevated LFTs: Code(s): R79.89 - Other specified abnormal findings of blood chemistry Status: Acute Assessment and Plan: Mildly elevated * Right upper quadrant ultrasound with hepatic steatosis. She is s/p cholecystectomy * Trend LFTs * Hep ABC panel negative * No RUQ tenderness on exam * Suspect fatty liver with possible reactive component (though one would expect LFTs to trend down with clinical improvement) (5) Prediabetes: Code(s): R73.03 - Prediabetes Status: Acute Assessment and Plan: A1c is 5.9 * No need for further monitoring (6) Hypertension: Code(s): I10 - Essential (primary) hypertension Status: Acute Assessment and Plan: Blood pressures reviewed and have been stable. Last BP 107/63 * Resumed home lisinopril 06/03 * Amlodipine on hold * Monitor BP trends * 06/04 control adequate (7) COPD (chronic obstructive pulmonary disease): Qualifiers: COPD type: unspecified COPD Qualified Code(s): J44.9 - Chronic obstru ctive pulmonary disease, unspecified Code(s): J44.9 - Chronic obstructive pulmonary disease, unspecified Status: Acute Assessment and Plan: Not in acute exacerbation * Albuterol inhaler as needed * Continue home Advair Plan Of note, patient with recent left forearm cellulitis 2 weeks ago following cat scratch, completed course of Augmentin and this has resolved. Recent diffuse allergic reaction secondary to new laundry detergent 1 week ago treated with Medrol Dosepak, hydrocortisone cream, and Benadryl with resolution of symptoms. Subjective Date/time seen: 06/04/22 11:28 LEFT LOWER EXTREMITY WITH MUCH LESS PAIN. NO FEVER. TOLERATING DIET. SLIGHTLY LESS REDNESS IN THE LEFT LOWER EXTREMITY. Denied chest pain or shortness of breath. Denied GI issues. Denied abnormal bleeding. Denied weakness or in numbness. Denied dizziness. Review of Systems Review of Systems: All systems reviewed & are unremar
--- NOTE | 2022-06-04 11:28 | PM.IMPN ---
Progress Note: A&P Assessment and Plan (1) Cellulitis of left lower extremity: Code(s): L03.116 - Cellulitis of left lower limb Status: Acute Assessment and Plan: Severe, purulent cellulitis onset 1 month ago, failed outpatient doxycycline Continue vancomycin and Rocephin 2 g daily Wound cultures pending, preliminary results of heavy growth of Staphylococcus aureus and group G Streptococcus. Susceptibility results pending Blood cultures pending, negative today Appreciate wound care evaluation Close monitoring. Continue daily examination of left lower extremity Elevate extremity Supportive care. Analgesics as needed WBC and CRP trending down. Patient afebrile. (2) Acute kidney injury: Code(s): N17.9 - Acute kidney failure, unspecified Status: Acute Assessment and Plan: Resolved. Secondary to acute infection vs medication use Creatinine has improved following IV fluid hydration. 06/01 1.6, 06/03 0.7, 06/04 0.9 IV fluids discontinued on 06/02 to avoid volume overload Ibuprofen discontinued Lisinopril and furosemide 06/01, resumed 06/03 Monitor BMP (3) Lower extremity edema: Code(s): R60.0 - Localized edema Status: Acute Assessment and Plan: Chronic, bilateral. Left lower extremity acutely worsened secondary to cellulitis Patient reports no change of right lower extremity edema. Relates this to CHF Resume home Lasix 40 mg daily Elevate extremities (4) Elevated LFTs: Code(s): R79.89 - Other specified abnormal findings of blood chemistry Status: Acute Assessment and Plan: Mildly elevated Right upper quadrant ultrasound with hepatic steatosis. She is s/p cholecystectomy Trend LFTs Hep ABC panel negative No RUQ tenderness on exam Suspect fatty liver with possible reactive component (though one would expect LFTs to trend down with clinical improvement) (5) Prediabetes: Code(s): R73.03 - Prediabetes Status: Acute Assessment and Plan: A1c is 5.9 No need for further monitoring (6) Hypertension: Code(s): I10 - Essential (primary) hypertension Status: Acute Assessment and Plan: Blood pressures reviewed and have been stable. Last BP 107/63 Resumed home lisinopril 06/03 Amlodipine on hold Monitor BP trends 06/04 control adequate (7) COPD (chronic obstructive pulmonary disease): Qualifiers: COPD type: unspecified COPD Qualified Code(s): J44.9 - Chronic obstructive pulmonary disease, unspecified Code(s): J44.9 - Chronic obstructive pulmonary disease, unspecified Status: Acute Assessment and Plan: Not in acute exacerbation Albuterol inhaler as needed Continue home Advair Plan Of note, patient with recent left forearm cellulitis 2 weeks ago following cat scratch, completed course of Augmentin and this has resolved. Recent diffuse allergic reaction secondary to new laundry detergent 1 week ago treated with Medrol Dosepak, hydrocortisone cream, and Benadryl with resolution of symptoms. Subjective Date/time seen: 06/04/22 11:28 LEFT LOWER EXTREMITY WITH MUCH LESS PAIN. NO FEVER. TOLERATING DIET. SLIGHTLY LESS REDNESS IN THE LEFT LOWER EXTREMITY. Denied chest pain or shortness of breath. Denied GI issues. Denied abnormal bleeding. Denied weakness or in numbness. Denied dizziness. Review of Systems Review of Systems: All systems reviewed & are unremarkable except as noted in HPI and below Exam Narrative: General: Obese, well-appearing 42year-old female, sitting up in bed, comfortable, NARD Neuro: awake, alert and oriented x4, speech clear, no focal neuro deficits noted HEENMT: normocephalic, atraumatic, EOMI, sclerae anicteric Respiratory: clear to auscultation bilaterally, nonlabored breathing Cardio: regular rate, regular rhythm with S1-S2 Abdomen: obese, normoactive bowel sounds, soft, nontender to palpation Ext
[2022-06-04 12:00] VITALS: BP 114/59; PULSE 81; RESP 18; TEMP 36.4; O2SAT 94
[2022-06-04 12:43] LABS: Vancomycin Trough 15.1 ug/mL (10.0-20.0)
[2022-06-04] MEDS: cefTRIAXone 2 GM in SODIUM CHLORIDE 0.9% IV 100 ML IVPB (13:16)
[2022-06-04] MEDS: MUPIROCIN 2% OINT 22 GM TUBE 1 APPLIC TOPICAL ×2 (13:16→17:47)
[2022-06-04 16:00] VITALS: BP 109/59; PULSE 80; RESP 18; TEMP 36.1; O2SAT 96
[2022-06-04 20:00] VITALS: BP 123/62; PULSE 87; RESP 20; TEMP 36.9; O2SAT 93
[2022-06-04] MEDS: DULoxetine HCL 60 MG CAPSULE.DR PO (20:08)
[2022-06-05] MEDS: ACETAMINOPHEN 325 MG TABLET 650 MG PO ×3 (01:32→20:08)
[2022-06-05] MEDS: HYDROcodone/acetaminophen (*CRX) 5-325 MG TABLET 1 TAB PO ×4 (02:14→22:19)
[2022-06-05] MEDS: hydrOXYzine HCL 25 MG TABLET 50 MG PO ×2 (02:20→16:02)
[2022-06-05 05:35] VITALS: BP 114/52; PULSE 84; RESP 20; TEMP 36.9; O2SAT 93
[2022-06-05 06:17] LABS: Hematocrit 37.2 % (37.0-47.0); Hemoglobin 11.9 g/dL (12.0-15.0); Mean Corpuscular Hemoglobin 29.5 pg (26-34); Mean Corpuscular Volume 92.1 fl (80-100); Mean Platelet Volume 10.4 fl (7.4-10.4); Platelet Count Result 351 k/mm3 (150-375); Red Blood Count 4.04 M/mm3 (4.2-5.4); Red Cell Distribution Width 17.5 % (11.5-14.5); White Blood Count 20.1 K/mm3 (4.5-10.0)
[2022-06-05 06:27] LABS: Alanine Aminotransferase 128 U/L (6-35); Albumin Level 3.6 g/dL (3.5-5.1); Alkaline Phosphatase 190 U/L (38-126); Anion Gap 10 mmol/L (8-16); Aspartate Amino Transferase 55 U/L (14-36); Bilirubin,Total 0.7 mg/dL (0.2-1.3); Blood Urea Nitrogen 10 mg/dL (7-17); Calcium 8.6 mg/dL (8.4-10.2); Carbon Dioxide 25 mmol/L (22-30); Chloride 102 mmol/L (98-107); Estimated CRCL calculation 99 ml/min; Estimated Glomerular Filt Rate > 60; Glucose 94 mg/dL (65-110); Potassium 4.1 mmol/L (3.4-5.0); Sodium 137 mmol/L (137-145)
[2022-06-05 07:05] LABS: Band Neutrophils Percent 9 % (0-6); Eosinophils Percent Manual 5 % (0-4); Lymphocytes Absolute Manual 3.81 K/mm3 (1.1-4.5); Monocytes Percent Manual 7 % (3-9); Neutrophils Absolute Manual 13.86 K/mm3 (1.7-7.2); Neutrophils Percent Manual 60 % (46-73); Platelet Estimate Adequate (Adequate); Total Cells Counted 100
[2022-06-05 08:00] VITALS: PULSE 92; RESP 18; O2SAT 93
[2022-06-05] MEDS: FLUTICASONE/SALMETEROL 115-21 MCG INHALER 1 PUFF 2 PUFF INHALATION ×2 (08:37→19:57)
[2022-06-05 08:40] VITALS: PULSE 92; RESP 18
[2022-06-05] MEDS: methocarbamoL 750 MG TABLET PO ×3 (08:56→16:03)
[2022-06-05] MEDS: lisinopriL 20 MG TABLET 40 MG PO (08:56)
[2022-06-05] MEDS: POTASSIUM CHLORIDE 10 MEQ TABLET.ER PO ×3 (08:57→16:04)
[2022-06-05] MEDS: FUROSEMIDE 40 MG TABLET PO (08:57)
[2022-06-05] MEDS: TOPIRAMATE 25 MG TABLET 50 MG PO ×2 (08:57→16:05)
[2022-06-05] MEDS: busPIRone HCL 5 MG TABLET 15 MG PO ×2 (08:57→16:03)
[2022-06-05] MEDS: GABAPENTIN 300 MG CAPSULE PO ×3 (08:57→16:04)
[2022-06-05] MEDS: ASPIRIN 81 MG ENTERIC TABLET PO (08:57)
[2022-06-05] MEDS: HEPARIN SODIUM 5,000 UNITS/ML VIAL 5000 UNITS SUB-Q ×2 (08:58→20:59)
[2022-06-05] MEDS: PANTOPRAZOLE 40 MG TABLET PO (08:58)
[2022-06-05] MEDS: FLUTICASONE PROPIONATE 0.05% NA SPR 16 GM BTL (*BKC) 1 SPRAY NASAL (08:58)
[2022-06-05] MEDS: VITAMIN B COMPLEX CAPSULE 1 CAP PO (08:58)
[2022-06-05] MEDS: MUPIROCIN 2% OINT 22 GM TUBE 1 APPLIC TOPICAL ×2 (08:58→16:03)
--- NOTE | 2022-06-05 11:41 | P.PNIM_ITS ---
Progress Note: A&P Assessment and Plan (1) Cellulitis of left lower extremity: Code(s): L03.116 - Cellulitis of left lower limb Status: Acute Assessment and Plan: Severe, purulent cellulitis onset 1 month ago, failed outpatient doxycycline * Continue vancomycin day 3 and switched from ceftriaxone to cefepime 06/05 due to increased WBC w/ increased bands * Wound cultures with MRA and Group G Streptococcus * Blood cultures negative * Elevate extremity * F/u lab (2) Acute kidney injury: Code(s): N17.9 - Acute kidney failure, unspecified Status: Acute Assessment and Plan: Resolved. Secondary to acute infection vs medication use * Creatinine has improved following IV fluid hydration. 06/01 1.6, 06/03 0.7, 06/04 0.9 * IV fluids discontinued on 06/02 to avoid volume overload * Ibuprofen discontinued * Lisinopril and furosemide 06/01, resumed 06/03 * Monitor BMP (3) Lower extremity edema: Code(s): R60.0 - Localized edema Status: Acute Assessment and Plan: Chronic, bilateral. Left lower extremity acutely worsened secondary to cellulitis * Patient reports no change of right lower extremity edema. Relates this to CHF * Resume home Lasix 40 mg daily * Elevate extremities (4) Elevated LFTs: Code(s): R79.89 - Other specified abnormal findings of blood chemistry Status: Acute Assessment and Plan: Mildly elevated * Right upper quadrant ultrasound with hepatic steatosis. She is s/p cholecystectomy * Trend LFTs * Hep ABC panel negative * No RUQ tenderness on exam * Suspect fatty liver with possible reactive component (though one would expect LFTs to trend down with clinical improvement) (5) Prediabetes: Code(s): R73.03 - Prediabetes Status: Acute Assessment and Plan: A1c is 5.9 * No need for further monitoring (6) Hypertension: Code(s): I10 - Essential (primary) hypertension Status: Acute Assessment and Plan: Blood pressures reviewed and have been stable. Last BP 107/63 * Resumed home lisinopril 06/03 * Amlodipine on hold * Monitor BP trends * 06/05 control adequate (7) COPD (chronic obstructive pulmonary disease): Qualifiers: COPD type: unspecified COPD Qualified Code(s): J44.9 - Chronic obstructive pulmonary disease, unspecified Code(s): J44.9 - Chronic obstructive pulmonary disease, unspecified Status: Acute Assessment and Plan: Not in acute exacerbation * Albuterol inhaler as needed * Continue home Advair Subjective Date/time seen: 06/05/22 11:41 copious drainage from left leg. No change in pain or swelling or redness. Review of Systems Review of Systems: All systems reviewed & are unremarkable except as noted in HPI and below Exam Narrative: General: Obese, well-appearing 42year-old female, sitting up in bed, comfortable, NARD Neuro: awake, alert and oriented x4, speech clear, no focal neuro deficits noted HEENMT: normocephalic, atraumatic, EOMI, sclerae anicteric Respiratory: clear to auscultation bilaterally, nonlabored breathing Cardio: regular rate, regular rhythm with S1-S2 Abdomen: obese, normoactive bowel sounds, soft, nontender to palpation Extremities: RLE with 2+ edema, no erythema or tenderness to palpation. LLE and left dorsal foot with 4+ edema, exquisitely tender to palpation, unable to palpate pedal pulse due to edema Skin: Left lower extremity is markedly karl
--- NOTE | 2022-06-05 11:41 | PM.IMPN ---
Progress Note: A&P Assessment and Plan (1) Cellulitis of left lower extremity: Code(s): L03.116 - Cellulitis of left lower limb Status: Acute Assessment and Plan: Severe, purulent cellulitis onset 1 month ago, failed outpatient doxycycline Continue vancomycin day 3 and switched from ceftriaxone to cefepime 06/05 due to increased WBC w/ increased bands Wound cultures with MRA and Group G Streptococcus Blood cultures negative Elevate extremity F/u lab (2) Acute kidney injury: Code(s): N17.9 - Acute kidney failure, unspecified Status: Acute Assessment and Plan: Resolved. Secondary to acute infection vs medication use Creatinine has improved following IV fluid hydration. 06/01 1.6, 06/03 0.7, 06/04 0.9 IV fluids discontinued on 06/02 to avoid volume overload Ibuprofen discontinued Lisinopril and furosemide 06/01, resumed 06/03 Monitor BMP (3) Lower extremity edema: Code(s): R60.0 - Localized edema Status: Acute Assessment and Plan: Chronic, bilateral. Left lower extremity acutely worsened secondary to cellulitis Patient reports no change of right lower extremity edema. Relates this to CHF Resume home Lasix 40 mg daily Elevate extremities (4) Elevated LFTs: Code(s): R79.89 - Other specified abnormal findings of blood chemistry Status: Acute Assessment and Plan: Mildly elevated Right upper quadrant ultrasound with hepatic steatosis. She is s/p cholecystectomy Trend LFTs Hep ABC panel negative No RUQ tenderness on exam Suspect fatty liver with possible reactive component (though one would expect LFTs to trend down with clinical improvement) (5) Prediabetes: Code(s): R73.03 - Prediabetes Status: Acute Assessment and Plan: A1c is 5.9 No need for further monitoring (6) Hypertension: Code(s): I10 - Essential (primary) hypertension Status: Acute Assessment and Plan: Blood pressures reviewed and have been stable. Last BP 107/63 Resumed home lisinopril 06/03 Amlodipine on hold Monitor BP trends 06/05 control adequate (7) COPD (chronic obstructive pulmonary disease): Qualifiers: COPD type: unspecified COPD Qualified Code(s): J44.9 - Chronic obstructive pulmonary disease, unspecified Code(s): J44.9 - Chronic obstructive pulmonary disease, unspecified Status: Acute Assessment and Plan: Not in acute exacerbation Albuterol inhaler as needed Continue home Advair Subjective Date/time seen: 06/05/22 11:41 copious drainage from left leg. No change in pain or swelling or redness. Review of Systems Review of Systems: All systems reviewed & are unremarkable except as noted in HPI and below Exam Narrative: General: Obese, well-appearing 42year-old female, sitting up in bed, comfortable, NARD Neuro: awake, alert and oriented x4, speech clear, no focal neuro deficits noted HEENMT: normocephalic, atraumatic, EOMI, sclerae anicteric Respiratory: clear to auscultation bilaterally, nonlabored breathing Cardio: regular rate, regular rhythm with S1-S2 Abdomen: obese, normoactive bowel sounds, soft, nontender to palpation Extremities: RLE with 2+ edema, no erythema or tenderness to palpation. LLE and left dorsal foot with 4+ edema, exquisitely tender to palpation, unable to palpate pedal pulse due to edema Skin: Left lower extremity is markedly erythematous with scattered small shallow ulcerations, few draining clear serous fluid Left foot with flaking skin and scabs on plantar surface at foot arch. Scattered excoriations on bilateral upper extremities with no purulence, drainage, signs/symptoms of infection. Scabbed area on left forearm. Psych: appropriate mood and affect, judgment and insight intact Objective Data Vital Signs Vital Signs: Vital Signs - 24 hr 06/04/22 12:00 06/04/22 16:00 06/04/22 20:00 Temperature 97.5 F L 96.9 F L
[2022-06-05 14:00] VITALS: BP 112/49; PULSE 82; RESP 20; TEMP 35.7; O2SAT 97
[2022-06-05] MEDS: DULoxetine HCL 60 MG CAPSULE.DR PO (20:59)
[2022-06-05 21:39] VITALS: BP 139/60; PULSE 89; RESP 18; TEMP 36.4; O2SAT 97
[2022-06-06] MEDS: ACETAMINOPHEN 325 MG TABLET 650 MG PO ×3 (02:23→21:01)
[2022-06-06] MEDS: HYDROcodone/acetaminophen (*CRX) 5-325 MG TABLET 1 TAB PO ×3 (04:26→17:49)
[2022-06-06 05:12] VITALS: BP 127/62; PULSE 89; RESP 20; TEMP 36.6; O2SAT 93
[2022-06-06 06:06] LABS: Basophils Absolute Auto 0.1 K/mm3 (0.0-0.1); Basophils Percent Auto 0.7 % (0.2-1.2); Eosinophils Absolute Auto 0.6 K/mm3 (0-0.3); Eosinophils Percent Auto 4.5 % (0-4.4); Hematocrit 35.1 % (37.0-47.0); Immature Granulocyte Absolute 1.78 K/mm3 (0.00-0.031); Lymphocytes Absolute Auto 2.03 K/mm3 (0.9-3.2); Lymphocytes Percent Auto 14.8 % (18.3-44.2); Mean Corpuscular HGB Conc 31.3 g/dl (32-36); Mean Corpuscular Hemoglobin 29.2 pg (26-34); Mean Corpuscular Volume 93.1 fl (80-100); Mean Platelet Volume 10.4 fl (7.4-10.4); Monocytes Absolute Auto 1.1 K/mm3 (0.1-0.6); Monocytes Percent Auto 8.1 % (2.6-8.5); Neutrophils Absolute Auto 8.1 K/mm3 (1.3-6.7); Neutrophils Percent Auto 58.9 % (45.5-73.1); Nucleated Red Blood Cells Perc 0.1 % (0.0-0.2); Platelet Count Result 338 k/mm3 (150-375); Red Blood Count 3.77 M/mm3 (4.2-5.4); Red Cell Distribution Width 17.6 % (11.5-14.5); White Blood Count 13.7 K/mm3 (4.5-10.0)
[2022-06-06 07:00] LABS: Alanine Aminotransferase 104 U/L (6-35); Albumin Level 3.1 g/dL (3.5-5.1); Alkaline Phosphatase 174 U/L (38-126); Anion Gap 11 mmol/L (8-16); Aspartate Amino Transferase 42 U/L (14-36); Bilirubin,Total 0.6 mg/dL (0.2-1.3); Blood Urea Nitrogen 10 mg/dL (7-17); CRP 14.3 mg/dL (<1.0); Calcium 8.7 mg/dL (8.4-10.2); Carbon Dioxide 19 mmol/L (22-30); Chloride 103 mmol/L (98-107); Estimated CRCL calculation 99 ml/min; Estimated Glomerular Filt Rate > 60; Glucose 109 mg/dL (65-110); Sodium 133 mmol/L (137-145)
[2022-06-06] MEDS: FLUTICASONE/SALMETEROL 115-21 MCG INHALER 1 PUFF 2 PUFF INHALATION ×2 (08:21→20:50)
[2022-06-06] MEDS: busPIRone HCL 5 MG TABLET 15 MG PO ×2 (08:25→17:50)
[2022-06-06] MEDS: ASPIRIN 81 MG ENTERIC TABLET PO (08:25)
[2022-06-06] MEDS: FUROSEMIDE 40 MG TABLET PO (08:26)
[2022-06-06] MEDS: VITAMIN B COMPLEX CAPSULE 1 CAP PO (08:26)
[2022-06-06] MEDS: FLUTICASONE PROPIONATE 0.05% NA SPR 16 GM BTL (*BKC) 1 SPRAY NASAL (08:26)
[2022-06-06] MEDS: lisinopriL 20 MG TABLET 40 MG PO (08:26)
[2022-06-06] MEDS: methocarbamoL 750 MG TABLET PO ×3 (08:26→17:51)
[2022-06-06] MEDS: HEPARIN SODIUM 5,000 UNITS/ML VIAL 5000 UNITS SUB-Q ×2 (08:26→20:58)
[2022-06-06] MEDS: TOPIRAMATE 25 MG TABLET 50 MG PO ×2 (08:26→17:51)
[2022-06-06] MEDS: GABAPENTIN 300 MG CAPSULE PO ×3 (08:26→17:50)
[2022-06-06] MEDS: PANTOPRAZOLE 40 MG TABLET PO (08:26)
[2022-06-06] MEDS: POTASSIUM CHLORIDE 10 MEQ TABLET.ER PO ×3 (08:26→17:50)
[2022-06-06] MEDS: MUPIROCIN 2% OINT 22 GM TUBE 1 APPLIC TOPICAL ×2 (08:27→17:49)
[2022-06-06] MEDS: hydrOXYzine HCL 25 MG TABLET 50 MG PO ×2 (11:09→17:48)
--- NOTE | 2022-06-06 11:37 | PM.IMPN ---
Progress Note: A&P Assessment and Plan (1) Cellulitis of left lower extremity: Code(s): L03.116 - Cellulitis of left lower limb Status: Acute Assessment and Plan: Severe, purulent cellulitis, onset 1 month ago, failed outpatient doxycycline Started on vancomycin and Rocephin, switched from ceftriaxone to cefepime 06/05 due to increased WBC w/ increased bands Wound cultures with MRSA and Group G Streptococcus Blood cultures negative Elevate extremity (2) Acute kidney injury: Code(s): N17.9 - Acute kidney failure, unspecified Status: Acute Assessment and Plan: Resolved (3) Lower extremity edema: Code(s): R60.0 - Localized edema Status: Acute Assessment and Plan: Chronic, bilateral. Left lower extremity acutely worsened secondary to cellulitis Patient reports no change of right lower extremity edema. Relates this to CHF and chronic lymphedema Resume home Lasix 40 mg daily Elevate extremities (4) Elevated LFTs: Code(s): R79.89 - Other specified abnormal findings of blood chemistry Status: Acute Assessment and Plan: Mildly elevated, improving Right upper quadrant ultrasound with hepatic steatosis. She is s/p cholecystectomy Trend LFTs Hep ABC panel negative No RUQ tenderness on exam Suspect fatty liver with possible reactive component (5) Prediabetes: Code(s): R73.03 - Prediabetes Status: Acute Assessment and Plan: A1c is 5.9 No need for further monitoring (6) Hypertension: Code(s): I10 - Essential (primary) hypertension Status: Acute Assessment and Plan: Blood pressures reviewed and have been stable. 06/06: 110/56 today Resumed home lisinopril 06/03 Amlodipine on hold Monitor BP trends (7) COPD (chronic obstructive pulmonary disease): Qualifiers: COPD type: unspecified COPD Qualified Code(s): J44.9 - Chronic obstructive pulmonary disease, unspecified Code(s): J44.9 - Chronic obstructive pulmonary disease, unspecified Status: Acute Assessment and Plan: Not in acute exacerbation Albuterol inhaler as needed Continue home Advair Plan DVT prophylaxis with heparin GI prophylaxis not indicated Code status full code Subjective Date/time seen: 06/06/22 11:37 Interval history: Patient very tearful, states she should have taking better care of herself. States she wants to lose weight and not have somewhat swelling at baseline so infections will not ?get out of hand.? No overnight events noted. No chest pain or shortness of breath. No nausea, vomiting or diarrhea. No fevers or chills. Review of Systems Review of Systems: 12 point review of systems was assessed and was negative except as noted in the HPI Exam Narrative: General: No acute distress, alert and oriented per baseline HEENT: Atraumatic, normocephalic, mucous membranes moist CV: Regular rate and rhythm, S1, S2 Lungs: Clear to auscultation bilaterally, no rales or crackles noted, no wheezes, good air entry Abdomen: Soft, nontender, nondistended Extremities: Normal to inspection Skin: Erythematous rash on bilateral upper extremities as well as left lower extremity, covers medial flexor surfaces on upper extremities, covers lateral and anterior surfaces of left lower extremity starting below the knee and ending at the ankle, no fluctuance or purulence, there is some serosanguineous drainage near the posterior lateral surface, significant erythematous induration on anterior lateral surface, tender to palpation, warm to the touch Psych: Euthymic, normal affect Objective Data Vital Signs Vital Signs: Vital Signs - 24 hr 06/05/22 14:00 06/05/22 21:39 06/05/22 20:00 Temperature 96.3 F L 97.6 F Pulse Rate 82 89 Respiratory Rate 20 18 Blood Pressure 112/49 L 139/60 Pulse Oximetry 97 97 Oxygen Delivery Room Air 06/06/22 05:12 06/06/22 08:00 [place]
[2022-06-06 14:00] VITALS: BP 110/56; PULSE 85; RESP 20; TEMP 36.1; O2SAT 94
[2022-06-06 20:50] VITALS: PULSE 89; O2SAT 92
[2022-06-06] MEDS: DULoxetine HCL 60 MG CAPSULE.DR PO (20:59)
[2022-06-06 21:19] VITALS: BP 110/51; PULSE 86; RESP 18; TEMP 36.3; O2SAT 99
[2022-06-07] MEDS: hydrOXYzine HCL 25 MG TABLET 50 MG PO ×5 (00:08→23:50)
[2022-06-07] MEDS: HYDROcodone/acetaminophen (*CRX) 5-325 MG TABLET 1 TAB PO ×5 (00:09→23:50)
[2022-06-07 04:11] VITALS: BP 114/56; PULSE 79; RESP 16; TEMP 36.1; O2SAT 97
[2022-06-07 07:07] LABS: Estimated CRCL calculation 99 ml/min; Estimated Glomerular Filt Rate > 60
--- NOTE | 2022-06-07 07:30 | PM.IMPN ---
Progress Note: A&P Assessment and Plan (1) Cellulitis of left lower extremity: Code(s): L03.116 - Cellulitis of left lower limb Status: Acute Assessment and Plan: Severe, purulent cellulitis, onset 1 month ago, failed outpatient doxycycline Started on vancomycin and Rocephin, switched from ceftriaxone to cefepime 06/05 due to increased WBC w/ increased bands Wound cultures with MRSA and Group G Streptococcus Blood cultures negative Elevate extremity 06/07: CRP trending down from 14 to 8.8 today, WBC downt o 13.2 from 13.7 yesterday, cont to monitor (2) Acute kidney injury: Code(s): N17.9 - Acute kidney failure, unspecified Status: Acute Assessment and Plan: Resolved (3) Lower extremity edema: Code(s): R60.0 - Localized edema Status: Acute Assessment and Plan: Chronic, bilateral. Left lower extremity acutely worsened secondary to cellulitis Patient reports no change of right lower extremity edema. Relates this to CHF and chronic lymphedema Resume home Lasix 40 mg daily Elevate extremities (4) Elevated LFTs: Code(s): R79.89 - Other specified abnormal findings of blood chemistry Status: Acute Assessment and Plan: Mildly elevated, improving Right upper quadrant ultrasound with hepatic steatosis. She is s/p cholecystectomy Trend LFTs Hep ABC panel negative No RUQ tenderness on exam Suspect fatty liver with possible reactive component 06/07: LFTs cont to fluctuate, monitor (5) Prediabetes: Code(s): R73.03 - Prediabetes Status: Acute Assessment and Plan: A1c is 5.9 No need for further monitoring (6) Hypertension: Code(s): I10 - Essential (primary) hypertension Status: Acute Assessment and Plan: Blood pressures reviewed and have been stable. 06/06: 110/56 today Resumed home lisinopril 06/03 Amlodipine on hold Monitor BP trends 06/07: would not continue norvasc at d/c d/t severe LE edema at baseline, compounded with worsened swelling from infection at this time, BP well controlled here, no need to add another BP agent for now (7) COPD (chronic obstructive pulmonary disease): Qualifiers: COPD type: unspecified COPD Qualified Code(s): J44.9 - Chronic obstructive pulmonary disease, unspecified Code(s): J44.9 - Chronic obstructive pulmonary disease, unspecified Status: Acute Assessment and Plan: Not in acute exacerbation Albuterol inhaler as needed Continue home Advair Plan DVT prophylaxis with heparin GI prophylaxis not indicated Code status full code Subjective Date/time seen: 06/07/22 07:30 Interval history: Patient resting comfortably, no complaints. States her rash feels much better and looks better today to her. No overnight events noted. No chest pain or shortness of breath. No nausea, vomiting or diarrhea. No fevers or chills. Review of Systems Review of Systems: All systems reviewed & are unremarkable except as noted in HPI and below Exam Narrative: General: No acute distress, alert and oriented per baseline HEENT: Atraumatic, normocephalic, mucous membranes moist CV: Regular rate and rhythm, S1, S2 Lungs: Clear to auscultation bilaterally, no rales or crackles noted, no wheezes, good air entry Abdomen: Soft, nontender, nondistended Extremities: Normal to inspection Skin: 06/06: Erythematous rash on bilateral upper extremities as well as left lower extremity, covers medial flexor surfaces on upper extremities, covers lateral and anterior surfaces of left lower extremity starting below the knee and ending at the ankle, no fluctuance or purulence, there is some serosanguineous drainage near the posterior lateral surface, significant erythematous induration on anterior lateral surface, tender to palpation, warm to the touch 06/07: Rash significantly decreased on upper extremities, appears to be receding on l
[2022-06-07 07:55] LABS: CRP 8.8 mg/dL (<1.0)
[2022-06-07 08:27] VITALS: O2SAT 95
[2022-06-07] MEDS: FLUTICASONE/SALMETEROL 115-21 MCG INHALER 1 PUFF 2 PUFF INHALATION ×2 (08:27→20:23)
[2022-06-07] MEDS: ASPIRIN 81 MG ENTERIC TABLET PO (09:01)
[2022-06-07] MEDS: POTASSIUM CHLORIDE 10 MEQ TABLET.ER PO ×3 (09:01→16:06)
[2022-06-07] MEDS: busPIRone HCL 5 MG TABLET 15 MG PO ×2 (09:02→16:06)
[2022-06-07] MEDS: FLUTICASONE PROPIONATE 0.05% NA SPR 16 GM BTL (*BKC) 1 SPRAY NASAL (09:02)
[2022-06-07] MEDS: FUROSEMIDE 40 MG TABLET PO (09:02)
[2022-06-07] MEDS: lisinopriL 20 MG TABLET 40 MG PO (09:03)
[2022-06-07] MEDS: GABAPENTIN 300 MG CAPSULE PO ×3 (09:03→16:06)
[2022-06-07] MEDS: HEPARIN SODIUM 5,000 UNITS/ML VIAL 5000 UNITS SUB-Q ×2 (09:03→21:16)
[2022-06-07] MEDS: methocarbamoL 750 MG TABLET PO ×3 (09:03→16:06)
[2022-06-07] MEDS: TOPIRAMATE 25 MG TABLET 50 MG PO ×2 (09:04→16:07)
[2022-06-07] MEDS: PANTOPRAZOLE 40 MG TABLET PO (09:04)
[2022-06-07] MEDS: VITAMIN B COMPLEX CAPSULE 1 CAP PO (09:04)
[2022-06-07] MEDS: ACETAMINOPHEN 325 MG TABLET 650 MG PO ×3 (09:12→21:17)
[2022-06-07] MEDS: MUPIROCIN 2% OINT 22 GM TUBE 1 APPLIC TOPICAL ×2 (09:16→16:08)
[2022-06-07 09:17] LABS: Basophils Absolute Auto 0.1 K/mm3 (0.0-0.1); Basophils Percent Auto 0.5 % (0.2-1.2); Eosinophils Absolute Auto 0.6 K/mm3 (0-0.3); Eosinophils Percent Auto 4.7 % (0-4.4); Hematocrit 33.1 % (37.0-47.0); Hemoglobin 10.4 g/dL (12.0-15.0); Immature Granulocyte Absolute 0.95 K/mm3 (0.00-0.031); Immature Granulocyte Percent A 7.2 % (0-0.5); Lymphocytes Absolute Auto 1.69 K/mm3 (0.9-3.2); Lymphocytes Percent Auto 12.8 % (18.3-44.2); Mean Corpuscular HGB Conc 31.4 g/dl (32-36); Mean Corpuscular Hemoglobin 29.7 pg (26-34); Mean Corpuscular Volume 94.6 fl (80-100); Mean Platelet Volume 10.3 fl (7.4-10.4); Monocytes Percent Auto 7.9 % (2.6-8.5); Neutrophils Absolute Auto 8.9 K/mm3 (1.3-6.7); Neutrophils Percent Auto 66.9 % (45.5-73.1); Platelet Count Result 358 k/mm3 (150-375); Red Cell Distribution Width 17.8 % (11.5-14.5); White Blood Count 13.2 K/mm3 (4.5-10.0)
[2022-06-07 09:28] LABS: Alanine Aminotransferase 103 U/L (6-35); Albumin Level 3.2 g/dL (3.5-5.1); Alkaline Phosphatase 193 U/L (38-126); Anion Gap 9 mmol/L (8-16); Aspartate Amino Transferase 53 U/L (14-36); Bilirubin,Total 0.5 mg/dL (0.2-1.3); Blood Urea Nitrogen 9 mg/dL (7-17); Calcium 8.3 mg/dL (8.4-10.2); Carbon Dioxide 22 mmol/L (22-30); Chloride 103 mmol/L (98-107); Estimated CRCL calculation 99 ml/min; Estimated Glomerular Filt Rate > 60; Glucose 99 mg/dL (65-110); Potassium 4.2 mmol/L (3.4-5.0); Sodium 134 mmol/L (137-145)
--- NOTE | 2022-06-07 10:50 | PC.NURSE ---
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 Speedometer Inspector called wound care regarding dressing and wound care okayed vasoline gauze if patient allows it.
[2022-06-07 13:04] LABS: Vancomycin Trough 22.3 ug/mL (10.0-20.0)
[2022-06-07 13:37] VITALS: BP 117/53; PULSE 88; RESP 17; TEMP 36.2; O2SAT 95
[2022-06-07 20:25] VITALS: O2SAT 96
[2022-06-07] MEDS: DULoxetine HCL 60 MG CAPSULE.DR PO (21:19)
[2022-06-07 22:00] VITALS: BP 102/49; PULSE 92; RESP 18; TEMP 35; O2SAT 95
[2022-06-08] MEDS: ACETAMINOPHEN 325 MG TABLET 650 MG PO ×2 (03:05→21:12)
[2022-06-08] MEDS: HYDROcodone/acetaminophen (*CRX) 5-325 MG TABLET 1 TAB PO ×3 (05:55→18:15)
[2022-06-08] MEDS: hydrOXYzine HCL 25 MG TABLET 50 MG PO ×3 (05:55→18:15)
[2022-06-08 06:00] VITALS: BP 100/54; PULSE 82; RESP 18; TEMP 35.8; O2SAT 96
[2022-06-08 06:39] LABS: Basophils Absolute Auto 0.1 K/mm3 (0.0-0.1); Basophils Percent Auto 0.5 % (0.2-1.2); Eosinophils Absolute Auto 0.6 K/mm3 (0-0.3); Eosinophils Percent Auto 4.5 % (0-4.4); Hematocrit 30.5 % (37.0-47.0); Immature Granulocyte Absolute 0.65 K/mm3 (0.00-0.031); Immature Granulocyte Percent A 4.9 % (0-0.5); Lymphocytes Absolute Auto 1.63 K/mm3 (0.9-3.2); Lymphocytes Percent Auto 12.3 % (18.3-44.2); Mean Corpuscular HGB Conc 32.8 g/dl (32-36); Mean Corpuscular Hemoglobin 30.2 pg (26-34); Mean Corpuscular Volume 92.1 fl (80-100); Mean Platelet Volume 10.1 fl (7.4-10.4); Monocytes Percent Auto 7.9 % (2.6-8.5); Neutrophils Absolute Auto 9.2 K/mm3 (1.3-6.7); Neutrophils Percent Auto 69.9 % (45.5-73.1); Platelet Count Result 361 k/mm3 (150-375); Red Blood Count 3.31 M/mm3 (4.2-5.4); Red Cell Distribution Width 17.4 % (11.5-14.5); White Blood Count 13.2 K/mm3 (4.5-10.0)
[2022-06-08 07:05] LABS: Alanine Aminotransferase 108 U/L (6-35); Albumin Level 3.1 g/dL (3.5-5.1); Alkaline Phosphatase 198 U/L (38-126); Anion Gap 8 mmol/L (8-16); Aspartate Amino Transferase 56 U/L (14-36); Bilirubin,Total 0.3 mg/dL (0.2-1.3); Blood Urea Nitrogen 8 mg/dL (7-17); CRP 8.5 mg/dL (<1.0); Calcium 8.2 mg/dL (8.4-10.2); Carbon Dioxide 24 mmol/L (22-30); Chloride 103 mmol/L (98-107); Estimated CRCL calculation 99 ml/min; Estimated Glomerular Filt Rate > 60; Glucose 124 mg/dL (65-110); Potassium 4.2 mmol/L (3.4-5.0); Sodium 135 mmol/L (137-145)
--- NOTE | 2022-06-08 08:28 | PM.IMPN ---
Progress Note: A&P Assessment and Plan (1) Cellulitis of left lower extremity: Code(s): L03.116 - Cellulitis of left lower limb Status: Acute Assessment and Plan: Severe, purulent cellulitis, LLE, onset 1 month ago, failed outpatient doxycycline Started on vancomycin and Rocephin, switched from ceftriaxone to cefepime 06/05 due to increased WBC w/increased bands Wound cultures with MRSA and Group G Streptococcus Blood cultures negative Elevate extremity 06/07: CRP trending down from 14 to 8.8 today, WBC down to 13.2 from 13.7 yesterday, cont to monitor 06/08: Vanc trough consistently greater than 15, improving extremely slowly, day 7 of IV abx, check imaging today to r/o abscess, no sx of compartment syndrome or necrotizing infection, unsure why progressing so slow (2) Lower extremity edema: Code(s): R60.0 - Localized edema Status: Acute Assessment and Plan: Chronic, bilateral. Left lower extremity acutely worsened secondary to cellulitis Patient reports no change of right lower extremity edema. Relates this to CHF and chronic lymphedema Resume home Lasix 40 mg daily, held on admission d/t LEIDA, now resolved Elevate extremities (3) Elevated LFTs: Code(s): R79.89 - Other specified abnormal findings of blood chemistry Status: Acute Assessment and Plan: Mildly elevated, improving Right upper quadrant ultrasound with hepatic steatosis. She is s/p cholecystectomy Trend LFTs Hep ABC panel negative No RUQ tenderness on exam Suspect fatty liver with possible reactive component 06/07: LFTs cont to fluctuate, monitor (4) Prediabetes: Code(s): R73.03 - Prediabetes Status: Acute Assessment and Plan: A1c is 5.9 No need for further monitoring (5) Hypertension: Code(s): I10 - Essential (primary) hypertension Status: Acute Assessment and Plan: Blood pressures reviewed and have been stable. 06/06: 110/56 today Resumed home lisinopril 06/03 Amlodipine on hold Monitor BP trends 06/07: would not continue norvasc at d/c d/t severe LE edema at baseline, compounded with worsened swelling from infection at this time, BP well controlled here, no need to add another BP agent for now (6) COPD (chronic obstructive pulmonary disease): Qualifiers: COPD type: unspecified COPD Qualified Code(s): J44.9 - Chronic obstructive pulmonary disease, unspecified Code(s): J44.9 - Chronic obstructive pulmonary disease, unspecified Status: Acute Assessment and Plan: Not in acute exacerbation Albuterol inhaler as needed Continue home Advair Plan DVT prophylaxis with heparin GI prophylaxis not indicated Code status full code Subjective Date/time seen: 06/08/22 08:28 Interval history: Patient resting comfortably, no complaints. States her rash feels much better and looks better today to her. No overnight events noted. No chest pain or shortness of breath. No nausea, vomiting or diarrhea. No fevers or chills. Review of Systems Review of Systems: 12 point review of systems was assessed and was negative except as noted in the HPI Exam Narrative: General: No acute distress, alert and oriented per baseline HEENT: Atraumatic, normocephalic, mucous membranes moist CV: Regular rate and rhythm, S1, S2 Lungs: Clear to auscultation bilaterally, no rales or crackles noted, no wheezes, good air entry Abdomen: Soft, nontender, nondistended Extremities: Normal to inspection Skin: 06/06: Erythematous rash on bilateral upper extremities as well as left lower extremity, covers medial flexor surfaces on upper extremities, covers lateral and anterior surfaces of left lower extremity starting below the knee and ending at the ankle, no fluctuance or purulence, there is some serosanguineous drainage near the posterior lateral surface, significant erythematous induration o
[2022-06-08] MEDS: GABAPENTIN 300 MG CAPSULE PO ×3 (08:43→17:14)
[2022-06-08] MEDS: TOPIRAMATE 25 MG TABLET 50 MG PO ×2 (08:43→17:14)
[2022-06-08] MEDS: PANTOPRAZOLE 40 MG TABLET PO (08:43)
[2022-06-08] MEDS: VITAMIN B COMPLEX CAPSULE 1 CAP PO (08:43)
[2022-06-08] MEDS: FLUTICASONE PROPIONATE 0.05% NA SPR 16 GM BTL (*BKC) 1 SPRAY NASAL (08:43)
[2022-06-08] MEDS: busPIRone HCL 5 MG TABLET 15 MG PO ×2 (08:43→17:14)
[2022-06-08] MEDS: methocarbamoL 750 MG TABLET PO ×3 (08:43→17:14)
[2022-06-08] MEDS: HEPARIN SODIUM 5,000 UNITS/ML VIAL 5000 UNITS SUB-Q ×2 (08:44→21:19)
[2022-06-08] MEDS: FUROSEMIDE 40 MG TABLET PO (08:44)
[2022-06-08] MEDS: ASPIRIN 81 MG ENTERIC TABLET PO (08:44)
[2022-06-08] MEDS: POTASSIUM CHLORIDE 10 MEQ TABLET.ER PO ×3 (08:44→17:14)
[2022-06-08] MEDS: lisinopriL 20 MG TABLET 40 MG PO (08:44)
[2022-06-08 08:45] VITALS: BP 118/55
[2022-06-08] MEDS: MUPIROCIN 2% OINT 22 GM TUBE 1 APPLIC TOPICAL ×2 (12:04→17:14)
[2022-06-08 14:00] VITALS: BP 127/65; PULSE 93; RESP 18; TEMP 36.7; O2SAT 98
[2022-06-08 20:30] VITALS: PULSE 93; RESP 18; O2SAT 94
[2022-06-08] MEDS: FLUTICASONE/SALMETEROL 115-21 MCG INHALER 1 PUFF 2 PUFF INHALATION (20:39)
[2022-06-08] MEDS: DULoxetine HCL 60 MG CAPSULE.DR PO (21:18)
[2022-06-08 22:00] VITALS: BP 114/43; PULSE 93; RESP 18; TEMP 37.6; O2SAT 94
[2022-06-09] MEDS: HYDROcodone/acetaminophen (*CRX) 5-325 MG TABLET 1 TAB PO ×3 (00:11→11:52)
[2022-06-09 05:39] VITALS: BP 114/59; PULSE 88; RESP 17; TEMP 37.3; O2SAT 93
[2022-06-09 07:01] LABS: Basophils Percent Auto 0.3 % (0.2-1.2); Eosinophils Absolute Auto 0.5 K/mm3 (0-0.3); Eosinophils Percent Auto 4.6 % (0-4.4); Hematocrit 30.3 % (37.0-47.0); Hemoglobin 9.7 g/dL (12.0-15.0); Immature Granulocyte Absolute 0.29 K/mm3 (0.00-0.031); Immature Granulocyte Percent A 2.7 % (0-0.5); Lymphocytes Absolute Auto 1.42 K/mm3 (0.9-3.2); Lymphocytes Percent Auto 13.1 % (18.3-44.2); Mean Corpuscular Hemoglobin 29.9 pg (26-34); Mean Corpuscular Volume 93.5 fl (80-100); Mean Platelet Volume 9.6 fl (7.4-10.4); Monocytes Absolute Auto 0.9 K/mm3 (0.1-0.6); Monocytes Percent Auto 8.3 % (2.6-8.5); Neutrophils Absolute Auto 7.7 K/mm3 (1.3-6.7); Platelet Count Result 356 k/mm3 (150-375); Red Blood Count 3.24 M/mm3 (4.2-5.4); Red Cell Distribution Width 17.2 % (11.5-14.5); White Blood Count 10.9 K/mm3 (4.5-10.0)
[2022-06-09 07:08] LABS: Alanine Aminotransferase 217 U/L (6-35); Alkaline Phosphatase 376 U/L (38-126); Anion Gap 6 mmol/L (8-16); Aspartate Amino Transferase 152 U/L (14-36); Bilirubin,Total 0.5 mg/dL (0.2-1.3); Blood Urea Nitrogen 10 mg/dL (7-17); Calcium 8.4 mg/dL (8.4-10.2); Carbon Dioxide 24 mmol/L (22-30); Chloride 102 mmol/L (98-107); Estimated CRCL calculation 99 ml/min; Estimated Glomerular Filt Rate > 60; Glucose 106 mg/dL (65-110); Potassium 4.3 mmol/L (3.4-5.0); Sodium 132 mmol/L (137-145)
[2022-06-09 07:33] LABS: Vancomycin Trough 13.7 ug/mL (10.0-20.0)
[2022-06-09] MEDS: FLUTICASONE/SALMETEROL 115-21 MCG INHALER 1 PUFF 2 PUFF INHALATION ×2 (07:58→19:55)
[2022-06-09 07:59] VITALS: O2SAT 91
[2022-06-09 08:00] VITALS: PULSE 87; RESP 18
[2022-06-09] MEDS: methocarbamoL 750 MG TABLET PO ×3 (08:57→16:29)
[2022-06-09] MEDS: lisinopriL 20 MG TABLET 40 MG PO (08:58)
[2022-06-09] MEDS: POTASSIUM CHLORIDE 10 MEQ TABLET.ER PO ×3 (08:58→17:06)
[2022-06-09] MEDS: busPIRone HCL 5 MG TABLET 15 MG PO ×2 (08:59→16:27)
[2022-06-09] MEDS: VITAMIN B COMPLEX CAPSULE 1 CAP PO (08:59)
[2022-06-09] MEDS: GABAPENTIN 300 MG CAPSULE PO ×2 (08:59→13:28)
[2022-06-09] MEDS: FUROSEMIDE 40 MG TABLET PO ×2 (08:59→16:29)
[2022-06-09] MEDS: PANTOPRAZOLE 40 MG TABLET PO (08:59)
[2022-06-09] MEDS: TOPIRAMATE 25 MG TABLET 50 MG PO ×2 (09:00→17:06)
[2022-06-09] MEDS: HEPARIN SODIUM 5,000 UNITS/ML VIAL 5000 UNITS SUB-Q ×2 (09:00→20:07)
[2022-06-09] MEDS: ASPIRIN 81 MG ENTERIC TABLET PO (09:00)
[2022-06-09] MEDS: FLUTICASONE PROPIONATE 0.05% NA SPR 16 GM BTL (*BKC) 1 SPRAY NASAL (09:01)
[2022-06-09] MEDS: hydrOXYzine HCL 25 MG TABLET 50 MG PO ×2 (09:03→22:39)
[2022-06-09] MEDS: MUPIROCIN 2% OINT 22 GM TUBE 1 APPLIC TOPICAL ×2 (09:58→17:05)
[2022-06-09 14:47] VITALS: BP 114/69; PULSE 96; RESP 18; TEMP 36.6; O2SAT 97
--- NOTE | 2022-06-09 16:07 | PM.IMPN ---
Progress Note: A&P Assessment and Plan (1) Cellulitis of left lower extremity: Code(s): L03.116 - Cellulitis of left lower limb Status: Acute Assessment and Plan: Severe, purulent cellulitis, LLE, onset 1 month ago, failed outpatient doxycycline Started on vancomycin and Rocephin, switched from ceftriaxone to cefepime 06/05 due to increased WBC w/increased bands Wound cultures with MRSA and Group G Streptococcus Blood cultures negative Elevate extremity 06/07: CRP trending down from 14 to 8.8 today, WBC down to 13.2 from 13.7 yesterday, cont to monitor 06/08: Vanc trough consistently greater than 15, improving extremely slowly, day 7 of IV abx, check imaging today to r/o abscess, no sx of compartment syndrome or necrotizing infection, unsure why progressing so slow 06/09: MRI negative for abscess, showing diffuse edema. Again, no signs or symptoms of compartment syndrome. Signs of necrotizing fascitis not noted on MRI. Erythema noted on chest, low suspicion of VIR however given noted symptom will switch vancomycin to daptomycin. Baseline CK ordered for tomorrow AM. Patient already on benadryl. Has completed 7 days of vancomycin, will continue daptomycin for 3 more days at least. Eucerin cream ordered for dry skin (2) Lower extremity edema: Code(s): R60.0 - Localized edema Status: Acute Assessment and Plan: Chronic, bilateral. Left lower extremity acutely worsened secondary to cellulitis Patient reports no change of right lower extremity edema. Relates this to CHF and chronic lymphedema Patient typically on lasix 40 daily. Suspect a component of her LLE may be due to chronic lymphedema. Will trial increasing lasix to 40 BID Elevate extremities (3) Elevated LFTs: Code(s): R79.89 - Other specified abnormal findings of blood chemistry Status: Acute Assessment and Plan: Mildly elevated, improving Right upper quadrant ultrasound with hepatic steatosis. She is s/p cholecystectomy Trend LFTs Hep ABC panel negative No RUQ tenderness on exam Suspect fatty liver with possible reactive component 06/07: LFTs cont to fluctuate, monitor (4) Prediabetes: Code(s): R73.03 - Prediabetes Status: Acute Assessment and Plan: A1c is 5.9 No need for further monitoring (5) Hypertension: Code(s): I10 - Essential (primary) hypertension Status: Acute Assessment and Plan: Blood pressures reviewed and have been stable. 06/06: 110/56 today Resumed home lisinopril 06/03 Amlodipine on hold Monitor BP trends 06/07: would not continue norvasc at d/c d/t severe LE edema at baseline, compounded with worsened swelling from infection at this time, BP well controlled here, no need to add another BP agent for now (6) COPD (chronic obstructive pulmonary disease): Qualifiers: COPD type: unspecified COPD Qualified Code(s): J44.9 - Chronic obstructive pulmonary disease, unspecified Code(s): J44.9 - Chronic obstructive pulmonary disease, unspecified Status: Acute Assessment and Plan: Not in acute exacerbation Albuterol inhaler as needed Continue home Advair (7) Hyponatremia: Code(s): E87.1 - Hypo-osmolality and hyponatremia Status: Acute Assessment and Plan: Continue to monitor Plan DVT prophylaxis with heparin GI prophylaxis not indicated Code status full code Subjective Date/time seen: 06/09/22 16:07 Chart reviewed, patient examined. Patient just took a shower. Upon my evaluation, patient's left lower extremity appears much worse than on initial exam evaluation upon admission. She reports, however, the leg has improved over the last couple of days. When asked about pain, patient is tearful stating that the pain is managed very temporarily by current regimen. Review of Systems Review of Systems: Ten point ROS reviewed, negative unless otherwise
[2022-06-09] MEDS: ACETAMINOPHEN 500 MG TABLET 1000 MG PO ×2 (16:23→22:39)
[2022-06-09] MEDS: oxyCODONE HCL (*CRX) 5 MG TAB IR 10 MG PO ×2 (16:24→22:39)
[2022-06-09] MEDS: GABAPENTIN 300 MG CAPSULE 600 MG PO (16:25)
[2022-06-09] MEDS: EUCERIN CREAM 120 GM JAR 1 APPLIC TOPICAL (17:05)
[2022-06-09 17:19] LABS: Creatine Kinase 34 U/L (30-135)
[2022-06-09 19:59] VITALS: O2SAT 93
[2022-06-09] MEDS: DULoxetine HCL 60 MG CAPSULE.DR PO (20:07)
[2022-06-09 21:58] VITALS: BP 109/48; PULSE 92; RESP 16; TEMP 36.4; O2SAT 91
[2022-06-10] MEDS: oxyCODONE HCL (*CRX) 5 MG TAB IR 10 MG PO ×3 (05:35→18:43)
[2022-06-10] MEDS: hydrOXYzine HCL 25 MG TABLET 50 MG PO ×3 (05:35→21:22)
[2022-06-10] MEDS: ACETAMINOPHEN 500 MG TABLET 1000 MG PO ×3 (05:35→21:22)
[2022-06-10 05:53] VITALS: BP 105/49; PULSE 94; RESP 16; TEMP 37.5; O2SAT 90
[2022-06-10 06:47] LABS: Basophils Percent Auto 0.2 % (0.2-1.2); Eosinophils Absolute Auto 0.6 K/mm3 (0-0.3); Eosinophils Percent Auto 5.5 % (0-4.4); Hematocrit 31.9 % (37.0-47.0); Immature Granulocyte Absolute 0.23 K/mm3 (0.00-0.031); Immature Granulocyte Percent A 2.1 % (0-0.5); Lymphocytes Absolute Auto 1.78 K/mm3 (0.9-3.2); Lymphocytes Percent Auto 15.9 % (18.3-44.2); Mean Corpuscular HGB Conc 31.3 g/dl (32-36); Mean Corpuscular Hemoglobin 29.2 pg (26-34); Mean Corpuscular Volume 93.3 fl (80-100); Mean Platelet Volume 9.2 fl (7.4-10.4); Monocytes Percent Auto 9.1 % (2.6-8.5); Neutrophils Absolute Auto 7.5 K/mm3 (1.3-6.7); Neutrophils Percent Auto 67.2 % (45.5-73.1); Platelet Count Result 382 k/mm3 (150-375); Red Blood Count 3.42 M/mm3 (4.2-5.4); Red Cell Distribution Width 17.2 % (11.5-14.5); White Blood Count 11.2 K/mm3 (4.5-10.0)
[2022-06-10 07:08] LABS: Alanine Aminotransferase 180 U/L (6-35); Albumin Level 3.2 g/dL (3.5-5.1); Alkaline Phosphatase 311 U/L (38-126); Anion Gap 10 mmol/L (8-16); Aspartate Amino Transferase 90 U/L (14-36); Bilirubin,Total 0.5 mg/dL (0.2-1.3); Blood Urea Nitrogen 13 mg/dL (7-17); Calcium 8.4 mg/dL (8.4-10.2); Carbon Dioxide 23 mmol/L (22-30); Chloride 100 mmol/L (98-107); Estimated CRCL calculation 75 ml/min; Estimated Glomerular Filt Rate 50; Glucose 115 mg/dL (65-110); Potassium 4.6 mmol/L (3.4-5.0); Sodium 133 mmol/L (137-145)
[2022-06-10 08:20] VITALS: PULSE 83; RESP 18; O2SAT 94
[2022-06-10] MEDS: FLUTICASONE/SALMETEROL 115-21 MCG INHALER 1 PUFF 2 PUFF INHALATION ×2 (08:24→20:54)
--- NOTE | 2022-06-10 08:43 | PCNWS ---
Weekly nutritional screen. Patient is tolerating current diet with adequate intake. No weight loss reported. No nutritional needs at this time. No pressure areas to skin. Cathi Vergara MS RD LDN
[2022-06-10] MEDS: lisinopriL 20 MG TABLET 40 MG PO (08:48)
[2022-06-10] MEDS: busPIRone HCL 5 MG TABLET 15 MG PO ×2 (08:48→17:03)
[2022-06-10] MEDS: methocarbamoL 750 MG TABLET PO ×3 (08:48→17:05)
[2022-06-10] MEDS: GABAPENTIN 300 MG CAPSULE 600 MG PO ×3 (08:48→17:04)
[2022-06-10] MEDS: TOPIRAMATE 25 MG TABLET 50 MG PO ×2 (08:48→17:04)
[2022-06-10] MEDS: ASPIRIN 81 MG ENTERIC TABLET PO (08:48)
[2022-06-10] MEDS: POTASSIUM CHLORIDE 10 MEQ TABLET.ER PO ×3 (08:49→17:04)
[2022-06-10] MEDS: PANTOPRAZOLE 40 MG TABLET PO (08:49)
[2022-06-10] MEDS: VITAMIN B COMPLEX CAPSULE 1 CAP PO (08:49)
[2022-06-10] MEDS: HEPARIN SODIUM 5,000 UNITS/ML VIAL 5000 UNITS SUB-Q ×2 (08:49→20:39)
[2022-06-10] MEDS: FUROSEMIDE 40 MG TABLET PO (08:49)
[2022-06-10] MEDS: FLUTICASONE PROPIONATE 0.05% NA SPR 16 GM BTL (*BKC) 1 SPRAY NASAL (08:50)
[2022-06-10] MEDS: EUCERIN CREAM 120 GM JAR 1 APPLIC TOPICAL ×2 (08:59→17:06)
[2022-06-10] MEDS: MUPIROCIN 2% OINT 22 GM TUBE 1 APPLIC TOPICAL ×2 (09:00→17:05)
[2022-06-10] MEDS: DAPTOmycin 500 MG in SODIUM CHLORIDE 0.9% IV 50 ML 100 MG IVPB (10:15)
[2022-06-10 14:45] VITALS: BP 96/57; PULSE 87; RESP 16; TEMP 37.2; O2SAT 100
--- NOTE | 2022-06-10 15:49 | PM.IMPN ---
Progress Note: A&P Assessment and Plan (1) Cellulitis of left lower extremity: Code(s): L03.116 - Cellulitis of left lower limb Status: Acute Assessment and Plan: Severe, purulent cellulitis, LLE, onset 1 month ago, failed outpatient doxycycline Started on vancomycin and Rocephin, switched from ceftriaxone to cefepime 06/05 due to increased WBC w/increased bands Wound cultures with MRSA and Group G Streptococcus Blood cultures negative Elevate extremity 06/07: CRP trending down from 14 to 8.8 today, WBC down to 13.2 from 13.7 yesterday, cont to monitor 06/08: Vanc trough consistently greater than 15, improving extremely slowly, day 7 of IV abx, check imaging today to r/o abscess, no sx of compartment syndrome or necrotizing infection, unsure why progressing so slow 06/09: MRI negative for abscess, showing diffuse edema. Again, no signs or symptoms of compartment syndrome. Signs of necrotizing fascitis not noted on MRI. Erythema noted on chest, low suspicion of VIR however given noted symptom will switch vancomycin to daptomycin. Baseline CK ordered for tomorrow AM. Patient already on benadryl. Has completed 7 days of vancomycin, will continue daptomycin for 3 more days at least. Eucerin cream ordered for dry skin 06/10: Continue daptomycin for 2 more days. CK normal. Pain managed with current regimen (2) Acute kidney injury: Code(s): N17.9 - Acute kidney failure, unspecified Status: Acute Assessment and Plan: Likely iatrogenic due to lasix increase. Will hold lasix and give 500 cc bolus (3) Lower extremity edema: Code(s): R60.0 - Localized edema Status: Acute Assessment and Plan: Chronic, bilateral. Left lower extremity acutely worsened secondary to cellulitis Patient reports no change of right lower extremity edema. Relates this to CHF and chronic lymphedema Hold lasix due to LEIDA Elevate extremities (4) Elevated LFTs: Code(s): R79.89 - Other specified abnormal findings of blood chemistry Status: Acute Assessment and Plan: Mildly elevated, improving Right upper quadrant ultrasound with hepatic steatosis. She is s/p cholecystectomy Trend LFTs Hep ABC panel negative No RUQ tenderness on exam Suspect fatty liver with possible reactive component 06/07: LFTs cont to fluctuate, monitor (5) Prediabetes: Code(s): R73.03 - Prediabetes Status: Acute Assessment and Plan: A1c is 5.9 No need for further monitoring (6) Hypertension: Code(s): I10 - Essential (primary) hypertension Status: Acute Assessment and Plan: Blood pressures reviewed and have been stable. 06/06: 110/56 today Resumed home lisinopril 06/03 Amlodipine on hold Monitor BP trends 06/07: would not continue norvasc at d/c d/t severe LE edema at baseline, compounded with worsened swelling from infection at this time, BP well controlled here, no need to add another BP agent for now (7) COPD (chronic obstructive pulmonary disease): Qualifiers: COPD type: unspecified COPD Qualified Code(s): J44.9 - Chronic obstructive pulmonary disease, unspecified Code(s): J44.9 - Chronic obstructive pulmonary disease, unspecified Status: Acute Assessment and Plan: Not in acute exacerbation Albuterol inhaler as needed Continue home Advair (8) Hyponatremia: Code(s): E87.1 - Hypo-osmolality and hyponatremia Status: Acute Assessment and Plan: Continue to monitor Plan DVT prophylaxis with heparin GI prophylaxis not indicated Code status full code Subjective Date/time seen: 06/10/22 15:49 Patient examined, chart reviewed. Patient reports clear drainage from left lower extremity, however reports the swelling has gone down slightly. States pain is much better managed with current regimen. Review of Systems Review of Systems: Ten point ROS reviewed, neg
[2022-06-10] MEDS: SODIUM CHLORIDE 0.9% IV 500 ML IV CONT (17:02)
[2022-06-10] MEDS: DULoxetine HCL 60 MG CAPSULE.DR PO (20:39)
[2022-06-10 20:55] VITALS: O2SAT 93
[2022-06-10 22:00] VITALS: BP 99/53; PULSE 87; RESP 18; TEMP 35.8; O2SAT 95
[2022-06-11] MEDS: oxyCODONE HCL (*CRX) 5 MG TAB IR 10 MG PO ×4 (00:52→19:40)
[2022-06-11 05:23] LABS: Basophils Percent Auto 0.2 % (0.2-1.2); Eosinophils Absolute Auto 0.6 K/mm3 (0-0.3); Eosinophils Percent Auto 5.9 % (0-4.4); Hematocrit 29.3 % (37.0-47.0); Hemoglobin 9.2 g/dL (12.0-15.0); Immature Granulocyte Absolute 0.15 K/mm3 (0.00-0.031); Immature Granulocyte Percent A 1.6 % (0-0.5); Lymphocytes Percent Auto 17.7 % (18.3-44.2); Mean Corpuscular HGB Conc 31.4 g/dl (32-36); Mean Corpuscular Hemoglobin 29.7 pg (26-34); Mean Corpuscular Volume 94.5 fl (80-100); Mean Platelet Volume 9.4 fl (7.4-10.4); Monocytes Percent Auto 10.4 % (2.6-8.5); Neutrophils Absolute Auto 6.1 K/mm3 (1.3-6.7); Neutrophils Percent Auto 64.2 % (45.5-73.1); Platelet Count Result 355 k/mm3 (150-375); Red Cell Distribution Width 17.3 % (11.5-14.5); White Blood Count 9.6 K/mm3 (4.5-10.0)
[2022-06-11] MEDS: ACETAMINOPHEN 500 MG TABLET 1000 MG PO ×3 (05:24→20:31)
[2022-06-11 05:38] LABS: Alanine Aminotransferase 195 U/L (6-35); Albumin Level 3.1 g/dL (3.5-5.1); Alkaline Phosphatase 319 U/L (38-126); Anion Gap 7 mmol/L (8-16); Aspartate Amino Transferase 94 U/L (14-36); Bilirubin,Total 0.4 mg/dL (0.2-1.3); Blood Urea Nitrogen 17 mg/dL (7-17); Calcium 8.2 mg/dL (8.4-10.2); Carbon Dioxide 23 mmol/L (22-30); Chloride 101 mmol/L (98-107); Estimated CRCL calculation 70 ml/min; Estimated Glomerular Filt Rate 45; Glucose 117 mg/dL (65-110); Potassium 4.8 mmol/L (3.4-5.0); Sodium 131 mmol/L (137-145)
[2022-06-11 06:00] VITALS: BP 98/57; PULSE 83; RESP 18; TEMP 35.9; O2SAT 92
[2022-06-11] MEDS: hydrOXYzine HCL 25 MG TABLET 50 MG PO ×3 (06:51→20:52)
[2022-06-11] MEDS: FLUTICASONE/SALMETEROL 115-21 MCG INHALER 1 PUFF 2 PUFF INHALATION ×2 (08:08→20:31)
[2022-06-11 08:09] VITALS: O2SAT 93
[2022-06-11] MEDS: DAPTOmycin 500 MG in SODIUM CHLORIDE 0.9% IV 50 ML 100 MG IVPB (09:00)
[2022-06-11] MEDS: lisinopriL 20 MG TABLET 40 MG PO (09:01)
[2022-06-11] MEDS: GABAPENTIN 300 MG CAPSULE 600 MG PO ×3 (09:01→16:00)
[2022-06-11] MEDS: busPIRone HCL 5 MG TABLET 15 MG PO ×2 (09:01→16:00)
[2022-06-11] MEDS: TOPIRAMATE 25 MG TABLET 50 MG PO ×2 (09:02→15:59)
[2022-06-11] MEDS: MUPIROCIN 2% OINT 22 GM TUBE 1 APPLIC TOPICAL ×2 (09:02→16:00)
[2022-06-11] MEDS: EUCERIN CREAM 120 GM JAR 1 APPLIC TOPICAL ×2 (09:02→16:00)
[2022-06-11] MEDS: HEPARIN SODIUM 5,000 UNITS/ML VIAL 5000 UNITS SUB-Q ×2 (09:02→20:30)
[2022-06-11] MEDS: methocarbamoL 750 MG TABLET PO ×3 (09:02→16:00)
[2022-06-11] MEDS: FLUTICASONE PROPIONATE 0.05% NA SPR 16 GM BTL (*BKC) 1 SPRAY NASAL (09:02)
[2022-06-11] MEDS: POTASSIUM CHLORIDE 10 MEQ TABLET.ER PO ×3 (09:02→16:00)
[2022-06-11] MEDS: VITAMIN B COMPLEX CAPSULE 1 CAP PO (09:02)
[2022-06-11] MEDS: ASPIRIN 81 MG ENTERIC TABLET PO (09:02)
[2022-06-11] MEDS: PANTOPRAZOLE 40 MG TABLET PO (09:03)
[2022-06-11 14:00] VITALS: BP 112/50; PULSE 86; RESP 18; TEMP 37.3; O2SAT 98
--- NOTE | 2022-06-11 17:40 | PM.IMPN ---
Progress Note: A&P Assessment and Plan (1) Cellulitis of left lower extremity: Code(s): L03.116 - Cellulitis of left lower limb Status: Acute Assessment and Plan: Severe, purulent cellulitis, LLE, onset 1 month ago, failed outpatient doxycycline Started on vancomycin and Rocephin, switched from ceftriaxone to cefepime 06/05 due to increased WBC w/increased bands Wound cultures with MRSA and Group G Streptococcus Blood cultures negative Elevate extremity 06/07: CRP trending down from 14 to 8.8 today, WBC down to 13.2 from 13.7 yesterday, cont to monitor 06/08: Vanc trough consistently greater than 15, improving extremely slowly, day 7 of IV abx, check imaging today to r/o abscess, no sx of compartment syndrome or necrotizing infection, unsure why progressing so slow 06/09: MRI negative for abscess, showing diffuse edema. Again, no signs or symptoms of compartment syndrome. Signs of necrotizing fascitis not noted on MRI. Erythema noted on chest, low suspicion of VIR however given noted symptom will switch vancomycin to daptomycin. Baseline CK ordered for tomorrow AM. Patient already on benadryl. Has completed 7 days of vancomycin, will continue daptomycin for 3 more days at least. Eucerin cream ordered for dry skin 06/11: Continue daptomycin for 1 more days. CK normal. Pain managed with current regimen (2) Acute kidney injury: Code(s): N17.9 - Acute kidney failure, unspecified Status: Acute Assessment and Plan: Likely iatrogenic due to lasix increase. s/p 500 cc bolus yesterday. Still worsening, abx may be contibuting. Patient has one more day of abx then off. Continue to monitor (3) Lower extremity edema: Code(s): R60.0 - Localized edema Status: Acute Assessment and Plan: Chronic, bilateral. Left lower extremity acutely worsened secondary to cellulitis Patient reports no change of right lower extremity edema. Relates this to CHF and chronic lymphedema Hold lasix due to LEIDA Elevate extremities (4) Elevated LFTs: Code(s): R79.89 - Other specified abnormal findings of blood chemistry Status: Acute Assessment and Plan: Mildly elevated, improving Right upper quadrant ultrasound with hepatic steatosis. She is s/p cholecystectomy Trend LFTs Hep ABC panel negative No RUQ tenderness on exam Suspect fatty liver with possible reactive component 06/07: LFTs cont to fluctuate, monitor (5) Prediabetes: Code(s): R73.03 - Prediabetes Status: Acute Assessment and Plan: A1c is 5.9 No need for further monitoring (6) Hypertension: Code(s): I10 - Essential (primary) hypertension Status: Acute Assessment and Plan: Blood pressures reviewed and have been stable. 06/06: 110/56 today Resumed home lisinopril 06/03 Amlodipine on hold Monitor BP trends 06/07: would not continue norvasc at d/c d/t severe LE edema at baseline, compounded with worsened swelling from infection at this time, BP well controlled here, no need to add another BP agent for now (7) COPD (chronic obstructive pulmonary disease): Qualifiers: COPD type: unspecified COPD Qualified Code(s): J44.9 - Chronic obstructive pulmonary disease, unspecified Code(s): J44.9 - Chronic obstructive pulmonary disease, unspecified Status: Acute Assessment and Plan: Not in acute exacerbation Albuterol inhaler as needed Continue home Advair (8) Hyponatremia: Code(s): E87.1 - Hypo-osmolality and hyponatremia Status: Acute Assessment and Plan: Continue to monitor Plan DVT prophylaxis with heparin GI prophylaxis not indicated Code status full code Subjective Date/time seen: 06/11/22 17:40 Patient examined, chart reviewed. Patient reports pain about the same, however managed well with current regimen. Reports wound looks much better, especially after wound care re-e
[2022-06-11 20:31] VITALS: PULSE 93; RESP 18
[2022-06-11] MEDS: DULoxetine HCL 60 MG CAPSULE.DR PO (20:31)
[2022-06-11 20:40] VITALS: PULSE 93; RESP 18
[2022-06-11 22:00] VITALS: BP 99/41; PULSE 88; RESP 18; TEMP 35.5; O2SAT 100
[2022-06-12] MEDS: oxyCODONE HCL (*CRX) 5 MG TAB IR 10 MG PO ×2 (02:35→08:12)
[2022-06-12 05:44] VITALS: BP 105/50; PULSE 88; RESP 18; TEMP 36.4; O2SAT 100
[2022-06-12] MEDS: ACETAMINOPHEN 500 MG TABLET 1000 MG PO (06:04)
[2022-06-12 06:53] LABS: Basophils Percent Auto 0.4 % (0.2-1.2); Eosinophils Absolute Auto 0.5 K/mm3 (0-0.3); Eosinophils Percent Auto 5.6 % (0-4.4); Hematocrit 27.6 % (37.0-47.0); Hemoglobin 8.8 g/dL (12.0-15.0); Immature Granulocyte Percent A 1.2 % (0-0.5); Lymphocytes Absolute Auto 1.58 K/mm3 (0.9-3.2); Mean Corpuscular HGB Conc 31.9 g/dl (32-36); Mean Corpuscular Hemoglobin 29.7 pg (26-34); Mean Corpuscular Volume 93.2 fl (80-100); Monocytes Absolute Auto 0.9 K/mm3 (0.1-0.6); Monocytes Percent Auto 11.1 % (2.6-8.5); Neutrophils Absolute Auto 5.2 K/mm3 (1.3-6.7); Neutrophils Percent Auto 62.7 % (45.5-73.1); Platelet Count Result 401 k/mm3 (150-375); Red Blood Count 2.96 M/mm3 (4.2-5.4); White Blood Count 8.3 K/mm3 (4.5-10.0)
[2022-06-12 07:16] LABS: Alanine Aminotransferase 157 U/L (6-35); Albumin Level 3.1 g/dL (3.5-5.1); Alkaline Phosphatase 272 U/L (38-126); Anion Gap 9 mmol/L (8-16); Aspartate Amino Transferase 73 U/L (14-36); Bilirubin,Total 0.4 mg/dL (0.2-1.3); Blood Urea Nitrogen 18 mg/dL (7-17); Calcium 8.7 mg/dL (8.4-10.2); Carbon Dioxide 19 mmol/L (22-30); Chloride 103 mmol/L (98-107); Estimated CRCL calculation 82 ml/min; Estimated Glomerular Filt Rate 55; Glucose 110 mg/dL (65-110); Potassium 5.3 mmol/L (3.4-5.0); Sodium 131 mmol/L (137-145)
[2022-06-12] MEDS: FLUTICASONE/SALMETEROL 115-21 MCG INHALER 1 PUFF 2 PUFF INHALATION (07:51)
[2022-06-12 07:52] VITALS: PULSE 89; RESP 18
[2022-06-12 07:56] VITALS: PULSE 89; RESP 18; O2SAT 94
[2022-06-12] MEDS: INSULIN ASPART (*BKC) 100 UNITS/ML 10 UNITS SUB-Q (08:10)
[2022-06-12] MEDS: DEXTROSE 50% 25 GM/50 ML SYRINGE IV PUSH (08:10)
[2022-06-12] MEDS: TOPIRAMATE 25 MG TABLET 50 MG PO (08:11)
[2022-06-12] MEDS: GABAPENTIN 300 MG CAPSULE 600 MG PO (08:11)
[2022-06-12] MEDS: hydrOXYzine HCL 25 MG TABLET 50 MG PO (08:12)
[2022-06-12] MEDS: VITAMIN B COMPLEX CAPSULE 1 CAP PO (08:12)
[2022-06-12] MEDS: busPIRone HCL 5 MG TABLET 15 MG PO (08:12)
[2022-06-12] MEDS: methocarbamoL 750 MG TABLET PO (08:12)
[2022-06-12] MEDS: PANTOPRAZOLE 40 MG TABLET PO (08:12)
[2022-06-12] MEDS: HEPARIN SODIUM 5,000 UNITS/ML VIAL 5000 UNITS SUB-Q (08:13)
[2022-06-12] MEDS: EUCERIN CREAM 120 GM JAR 1 APPLIC TOPICAL (08:13)
[2022-06-12] MEDS: FLUTICASONE PROPIONATE 0.05% NA SPR 16 GM BTL (*BKC) 1 SPRAY NASAL (08:13)
[2022-06-12] MEDS: ASPIRIN 81 MG ENTERIC TABLET PO (08:13)
[2022-06-12] MEDS: MUPIROCIN 2% OINT 22 GM TUBE 1 APPLIC TOPICAL (08:13)
--- NOTE | 2022-06-12 09:40 | PM.DS ---
DS: Admitting Diagnosis Discharge Date 06/12/2022 Admitting Diagnosis Left lower extremity cellulitis DS: Summary Hospital Course Reason for hospitalization: Left lower extremity cellulitis Hospital Course: 42-year-old female who was admitted 06/03 due to left lower extremity cellulitis. Due to purulent drainage and prior history of cellulitis, patient was started on vancomycin and Rocephin. Unfortunately patient's cellulitis worsened, and due to the worsening symptoms and increase in WBCs patient's Rocephin was switched to cefepime. Patient's MRSA swab was positive, wound cultures positive for MRSA and group G Streptococcus. Blood cultures were negative. Wound Care was consulted and provided recommendations. MRI was done that was negative for abscess however showed diffuse edema without concern for necrotizing fasciitis. Patient's vancomycin was switched to daptomycin due to erythematous rash noted on chest. In total, patient was treated with IV antibiotics for 10 days with eventual improvement in symptoms and WBC count. Patient's amlodipine was stopped, and lisinopril lowered to 20 mg. Patient was discharged in stable condition. Time Spent with Patient Time attestation: Total time spent providing and/or coordinating discharge services: Exam Narrative: General: No acute distress, alert and oriented per baseline HEENT: Atraumatic, normocephalic, mucous membranes moist CV: Regular rate and rhythm, S1, S2 Lungs: Clear to auscultation bilaterally, no rales or crackles noted, no wheezes, good air entry Abdomen: Soft, nontender, nondistended Extremities: As below Skin: 06/06: Erythematous rash on bilateral upper extremities as well as left lower extremity, covers medial flexor surfaces on upper extremities, covers lateral and anterior surfaces of left lower extremity starting below the knee and ending at the ankle, no fluctuance or purulence, there is some serosanguineous drainage near the posterior lateral surface, significant erythematous induration on anterior lateral surface, tender to palpation, warm to the touch 06/07: Rash significantly decreased on upper extremities, appears to be receding on left lower extremity, less erythematous, less tender to palpation, still with copious amounts of serosanguineous drainage, induration improved, no longer warm to the touch 06/08: Rash almost completely gone from upper extremities, continues to recede on left lower extremity, continues to drain serosanguineous fluid, induration also receding, significant lymphedema noted 06/09: Pustular rash noted on L hand, however overall UEs appear normal. Erythema noted on chest. LLE blue and tense, however patient able to move toes and sensation intact. Extreme pain to palpation. Still draining serosanguinous fluid. Not warm to touch 06/10: LLE appears less blue and tense, edema slightly decreased. Pain to palpation improved. Clear fluid drainage 06/12: Very much improved, edema slightly decreased. Clear fluid drainage Psych: Euthymic, normal affect DS: Data Data Completed and Pending Labs on day of discharge: Labs from last 24 hours 06/12/22 06/12/22 06:05 06:05 WBC 8.3 RBC 2.96 L Hgb 8.8 L Hct 27.6 L MCV 93.2 MCH 29.7 MCHC 31.9 L RDW 17.0 H Plt Count 401 H MPV 10.0 Immature Gran % (Auto) 1.2 H Neut % (Auto) 62.7 Lymph % (Auto) 19.0 [place] % (Auto) 11.1 H Eos % (Auto) 5.6 H Baso % (Auto) 0.4 Lymph # (Auto) 1.58 [place] # (Auto) 0.9 H Eos # (Auto) 0.5 H Baso # (Auto) 0.0 Abs Immat Gran (auto) 0.10 H Absolute Neuts (auto) 5.2 Absolute Nucleated RBC 0.0 Nucleated RBC % 0.0 Sodium 131 L Potassium 5.3 H Chloride 103 Carbon Dioxide 19 L Anion Gap 9 BUN 18 H Creatinine 1.10 H Estim Creat Clear Calc 82 Estimated GFR 55 L Glucose 110 Calcium 8.7 Total Bilirubin 0.4 AST 73 H ALT 157 H Alkaline Phosphatase 272 H Total Protein 8.0 Albumin
[2022-06-12 10:05] LABS: Potassium 4.9 mmol/L (3.4-5.0)
[2022-06-12] MEDS: DAPTOmycin 500 MG in SODIUM CHLORIDE 0.9% IV 50 ML 100 MG IVPB (10:11)
== END 2022-06-12 11:57 | disposition home or self-care (01) | DRG 383 ==
LOC: ANHED 19:05 → ANH3MEDSUR 20:31
PROVIDERS: Physician Assistant; Student in an Organized Health Care Education/Training Program; Admitting Provider Internal Medicine; Emergency Provider General Practice; PCP Nurse Practitioner Family; Visit Provider Internal Medicine
DX: L03.116 Cellulitis of left lower limb (principal); B95.1 Streptococcus, group B, as the cause of diseases classified elsewhere; B95.62 Methicillin resistant Staphylococcus aureus infection as the cause of diseases classified elsewhere; Z20.822 Contact with and (suspected) exposure to COVID-19; I11.0 Hypertensive heart disease with heart failure; I50.9 Heart failure, unspecified; J44.9 Chronic obstructive pulmonary disease, unspecified; K21.9 Gastro-esophageal reflux disease without esophagitis; G62.9 Polyneuropathy, unspecified; R73.03 Prediabetes; I89.0 Lymphedema, not elsewhere classified; E87.1 Hypo-osmolality and hyponatremia; K76.0 Fatty (change of) liver, not elsewhere classified; L27.1 Localized skin eruption due to drugs and medicaments taken internally; T36.8X5A Adverse effect of other systemic antibiotics, initial encounter; M54.50 Low back pain, unspecified; G89.29 Other chronic pain; F41.9 Anxiety disorder, unspecified; F17.210 Nicotine dependence, cigarettes, uncomplicated; E66.01 Morbid (severe) obesity due to excess calories; Z68.43 Body mass index [BMI] 50.0-59.9, adult; Z79.82 Long term (current) use of aspirin; Z90.49 Acquired absence of other specified parts of digestive tract
CPT/HCPCS: 36415; 71045; 73718; 76705; 80053; 80074; 80202; 82550; 82565; 83036; 83605; 84132; 85025; 85610; 85652; 86140; 87040; 87070; 87081; 87147; 87186; 87205; 93005; 94640; 96365; 96366; 96367; 96372; 96375; 99285; A9270; C9803; G0378; G0379; J0690; J0692; J0696; J0878; J1644; J1815; J2270; J2405; J3370; J7040; J7120; U0003; U0005

== ENCOUNTER 2022-08-23 07:21 | Outpatient (CLI) | payer OTHER, SELFPAY ==
[2022-08-23 08:23] LABS: Basophils Absolute Auto 0.1 K/mm3 (0.0-0.1); Basophils Percent Auto 0.5 % (0.2-1.2); Eosinophils Absolute Auto 0.5 K/mm3 (0-0.3); Eosinophils Percent Auto 4.8 % (0-4.4); Hematocrit 38.3 % (37.0-47.0); Hemoglobin 12.3 g/dL (12.0-15.0); Immature Granulocyte Absolute 0.03 K/mm3 (0.00-0.031); Immature Granulocyte Percent A 0.3 % (0-0.5); Lymphocytes Absolute Auto 4.03 K/mm3 (0.9-3.2); Lymphocytes Percent Auto 40.4 % (18.3-44.2); Mean Corpuscular HGB Conc 32.1 g/dl (32-36); Mean Corpuscular Hemoglobin 27.7 pg (26-34); Mean Corpuscular Volume 86.3 fl (80-100); Mean Platelet Volume 10.2 fl (7.4-10.4); Monocytes Absolute Auto 0.7 K/mm3 (0.1-0.6); Monocytes Percent Auto 7.4 % (2.6-8.5); Neutrophils Absolute Auto 4.7 K/mm3 (1.3-6.7); Neutrophils Percent Auto 46.6 % (45.5-73.1); Platelet Count Result 319 k/mm3 (150-375); Red Blood Count 4.44 M/mm3 (4.2-5.4); Red Cell Distribution Width 16.1 % (11.5-14.5)
[2022-08-23 08:31] LABS: Alanine Aminotransferase 56 U/L (6-35); Albumin Level 3.9 g/dL (3.5-5.1); Alkaline Phosphatase 101 U/L (38-126); Anion Gap 12 mmol/L (8-16); Aspartate Amino Transferase 37 U/L (14-36); Bilirubin,Total 0.5 mg/dL (0.2-1.3); Blood Urea Nitrogen 12 mg/dL (7-17); Carbon Dioxide 23 mmol/L (22-30); Chloride 105 mmol/L (98-107); Estimated Glomerular Filt Rate > 60; Glucose 99 mg/dL (65-110); Potassium 3.6 mmol/L (3.4-5.0); Sodium 140 mmol/L (137-145)
[2022-08-23 08:39] LABS: NT Pro B Type Natriuretic Pept 73 pg/mL (5-100)
[2022-08-23 09:03] LABS: Hepatitis B Surface Antigen Negative (Negative)
[2022-08-23 09:08] LABS: HAV RESULT Negative (Negative); Hepatitis B Core IgM Result Negative (Negative)
[2022-08-23 09:20] LABS: Hepatitis C Virus Antibody Negative (Negative)
[2022-08-23 10:38] LABS: Atypical Lymphocytes Present; Platelet Estimate Adequate (Adequate); Schistocytes None Seen (NORMAL)
== END 2022-08-23 07:22 | disposition home or self-care (01) ==
PROVIDERS: PCP Nurse Practitioner Family; Visit Provider Nurse Practitioner Family
DX: R74.8 Abnormal levels of other serum enzymes (principal); M79.89 Other specified soft tissue disorders; I10 Essential (primary) hypertension; R07.89 Other chest pain; R06.00 Dyspnea, unspecified; D35.01 Benign neoplasm of right adrenal gland; F17.200 Nicotine dependence, unspecified, uncomplicated; E66.01 Morbid (severe) obesity due to excess calories; E78.5 Hyperlipidemia, unspecified
CPT/HCPCS: 36415; 80053; 80074; 83880; 84443; 85025

== ENCOUNTER 2022-09-14 14:37 | Emergency (ER) | payer OTHER, SELFPAY ==
[2022-09-14 14:52] VITALS: BP 144/84; PULSE 88; RESP 20; TEMP 37.1; O2SAT 100
--- NOTE | 2022-09-14 19:30 | PC.NURSE ---
Patient walked out before seeing provider
== END 2022-09-14 19:30 | disposition left against medical advice (07) ==
PROVIDERS: PCP Nurse Practitioner Family
DX: L98.9 Disorder of the skin and subcutaneous tissue, unspecified (principal)
CPT/HCPCS: 99199

== ENCOUNTER 2022-09-17 13:08 | Emergency (ER) | payer OTHER, SELFPAY ==
--- NOTE | ~2022-09-17 | XR_ITS ---
XR chest 1V portable 09/17/2022 13:44 Indication: Leg edema. CHF. Procedure: AP portable chest Comparison: Comparison to multiple prior studies sequentially, with oldest reviewed study dated 07/17. Findings: Borderline heart size with persistent mild interstitial edema. No pleural effusion or pneum othorax. Impression: 1: Unchanged mild interstitial edema. Reviewed, dictated and finalized at location A. CULTURAL SYSTEMS SPECIALIST Impression: 1: Unchanged mild interstitial edema.
[2022-09-17 13:11] VITALS: BP 153/99; PULSE 94; RESP 20; TEMP 36.2; O2SAT 100
--- NOTE | 2022-09-17 13:22 | ED.EXTPRO ---
HPI - Extremity Problem General Chief complaint: Extremity Problem,Nontraumatic Stated complaint: bilateral leg weeping Time Seen by Provider: 09/17/22 13:21 Source: patient Mode of arrival: ambulatory Limitations: no limitations History of Present Illness HPI Narrative: 42 years old white female presents with 1-1/2-week weeping legs. Patient reported to been fighting cellulitis of the lower legs off and on since May 2022. Been hospitalized twice at [facility] and in our hospital once since May. Patient family physician works as [employer]. Patient is telling me that her family physician told her to go to wound care clinic or emergency room without eating seeing her patient on Lasix 40 mg once a day. On arrival to the ED patient have Sameer wrap wrapped all the way around both lower legs just below the knees. Patient is not physically active, sitting on the couch almost 09/05. Related Data Home Medications Medication Instructions Recorded Confirmed ascorbic acid (vitamin C) 250 mg 250 mg PO DAILY 10/08/21 06/01/22 tablet aspirin 81 mg tablet,delayed 81 mg PO DAILY 10/08/21 06/01/22 release budesonide-formoterol HFA 160 1 inh inhalation DAILY 10/08/21 06/01/22 mcg-4.5 mcg/actuation aerosol inhaler (Symbicort) buspirone 15 mg tablet 15 mg PO BID 10/08/21 06/01/22 duloxetine 60 mg capsule,delayed 60 mg PO HS 10/08/21 06/01/22 release furosemide 40 mg tablet 40 mg PO QAM 10/08/21 06/01/22 omega-3 fatty acids 1,000 mg 1,000 mg PO DAILY 10/08/21 06/01/22 capsule (Fish Oil Concentrate) omeprazole 20 mg capsule,delayed 20 mg PO HS 10/08/21 06/01/22 release topiramate 50 mg tablet 50 mg PO BID 10/08/21 06/01/22 vitamin B complex (B 1 tablet PO DAILY 10/08/21 06/01/22 Complex-Vitamin B12 tablet) ergocalciferol (vitamin D2) 1,250 1,250 mcg PO WEEKLY 06/01/22 06/01/22 mcg (50,000 unit) capsule (Vitamin D2) fluticasone propionate 50 1 spray intranasal QAM 06/01/22 06/01/22 mcg/actuation nasal spray,suspension (Allergy Relief (fluticasone)) hydroxyzine HCl 50 mg tablet 50 mg PO QID 06/01/22 06/01/22 methocarbamol 750 mg tablet 750 mg PO TID 06/01/22 06/01/22 multivitamin with minerals-folic 1 tablet PO QAM 06/01/22 06/01/22 acid 0.4 mg tablet Allergies Allergy/AdvReac Type Severity Reaction Status Date / Time No Known Allergies Allergy Unknown Verified 09/17/22 13:09 Review of Systems Review of Systems: All systems reviewed & are unremarkable except as noted in HPI and below PMFSH Past Medical History Medical History Anxiety COPD (chronic obstructive pulmonary disease) GERD (gastroesophageal reflux disease) Hypertension Lower extremity edema Neuropathy Prediabetes Surgical History Surgical History H/O umbilical hernia repair 11/16/21 H/O: hysterectomy Hx laparoscopic cholecystectomy 11/16/21 Family History Family History (Updated 06/01/22 @ 21:26 by Aditi Delaney RN) Father Hypertension Mother Depression Heart disease Hypertension Grandparent Diabetes mellitus Social History Social History Smoking packs per day: 1 Smoking cigarettes per day: 20.0 Years smoked: 26 Smoking pack-years: 26.00 Smoking status: Current every day smoker Tobacco type: cigarettes Alcohol intake: current Drinks per week: 1 Substance use: current Substance use type: marijuana Other substance usage details: EVERY ONCE IN A WHILE Spiritual care concerns: No Exam Narrative: General appearance: Well-developed, well-nourished Skin: Normal color, chronic stasis dermatitis of the lower extremity bilaterally up to the knees, no weeping at this time, no cellulitis Head: Normocephalic, nontraumatic Eyes: Clear conjunctiva ENT: Oropharynx normal, ears normal, nose normal
--- NOTE | 2022-09-17 13:24 | ECG_ITS ---
Measurements Intervals [place] Rate: 74 P: 56 CO: 139 QRS: 26 QRSD: 105 T: 40 QT: 363 QTc: 403 Interpretive Statements SINUS RHYTHM POSSIBLE LEFT ATRIAL ENLARGEMENT [-0.1mV P WAVE IN V1/V2] COMPARED TO ECG 06/03/2022 04:15:35 NO SIGNIFICANT CHANGES Electronically Signed On 09-17-2022 14:37:57 [employer]CHITECT[employer] DRAFTSPERSON by Russel Haines M.D.
[2022-09-17 14:19] LABS: Basophils Absolute Auto 0.1 K/mm3 (0.0-0.1); Basophils Percent Auto 0.6 % (0.2-1.2); Eosinophils Absolute Auto 0.6 K/mm3 (0-0.3); Eosinophils Percent Auto 5.9 % (0-4.4); Hematocrit 38.5 % (37.0-47.0); Immature Granulocyte Absolute 0.09 K/mm3 (0.00-0.031); Immature Granulocyte Percent A 0.9 % (0-0.5); Lymphocytes Absolute Auto 3.83 K/mm3 (0.9-3.2); Lymphocytes Percent Auto 37.7 % (18.3-44.2); Mean Corpuscular HGB Conc 31.2 g/dl (32-36); Mean Corpuscular Hemoglobin 27.3 pg (26-34); Mean Corpuscular Volume 87.7 fl (80-100); Mean Platelet Volume 9.9 fl (7.4-10.4); Monocytes Absolute Auto 0.8 K/mm3 (0.1-0.6); Monocytes Percent Auto 7.8 % (2.6-8.5); Neutrophils Absolute Auto 4.8 K/mm3 (1.3-6.7); Neutrophils Percent Auto 47.1 % (45.5-73.1); Platelet Count Result 389 k/mm3 (150-375); Red Blood Count 4.39 M/mm3 (4.2-5.4); Red Cell Distribution Width 16.5 % (11.5-14.5); White Blood Count 10.2 K/mm3 (4.5-10.0)
[2022-09-17 14:36] LABS: Alanine Aminotransferase 57 U/L (6-35); Albumin Level 3.9 g/dL (3.5-5.1); Alkaline Phosphatase 126 U/L (38-126); Anion Gap 6 mmol/L (8-16); Aspartate Amino Transferase 38 U/L (14-36); Bilirubin,Total 0.4 mg/dL (0.2-1.3); Blood Urea Nitrogen 10 mg/dL (7-17); Calcium 8.8 mg/dL (8.4-10.2); Carbon Dioxide 26 mmol/L (22-30); Chloride 106 mmol/L (98-107); Estimated CRCL calculation 120 ml/min; Estimated Glomerular Filt Rate > 60; Glucose 92 mg/dL (65-110); Potassium 3.9 mmol/L (3.4-5.0); Sodium 138 mmol/L (137-145)
[2022-09-17 14:44] LABS: NT Pro B Type Natriuretic Pept 186 pg/mL (5-100)
== END 2022-09-17 15:38 | disposition home or self-care (01) ==
PROVIDERS: Emergency Provider Emergency Medicine; PCP Nurse Practitioner Family
DX: I87.2 Venous insufficiency (chronic) (peripheral) (principal); J44.9 Chronic obstructive pulmonary disease, unspecified; I10 Essential (primary) hypertension; R73.03 Prediabetes; K21.9 Gastro-esophageal reflux disease without esophagitis; G62.9 Polyneuropathy, unspecified; Z90.710 Acquired absence of both cervix and uterus; F17.210 Nicotine dependence, cigarettes, uncomplicated; J81.1 Chronic pulmonary edema; R94.31 Abnormal electrocardiogram [ECG] [EKG]
CPT/HCPCS: 36415; 71045; 80053; 83880; 85025; 93005; 99283

== ENCOUNTER 2023-04-28 08:13 | Outpatient (CLI) | payer OTHER, SELFPAY ==
[2023-04-28 09:00] LABS: Alanine Aminotransferase 245 U/L (6-35); Albumin Level 4.2 g/dL (3.5-5.1); Alkaline Phosphatase 162 U/L (38-126); Anion Gap 8 mmol/L (8-16); Aspartate Amino Transferase 259 U/L (14-36); Bilirubin,Total 0.6 mg/dL (0.2-1.3); Blood Urea Nitrogen 11 mg/dL (7-17); Calcium 9.1 mg/dL (8.4-10.2); Carbon Dioxide 27 mmol/L (22-30); Chloride 105 mmol/L (98-107); Estimated Glomerular Filt Rate > 60; Glucose 107 mg/dL (65-110); Potassium 3.8 mmol/L (3.4-5.0); Sodium 140 mmol/L (137-145)
[2023-05-01 12:16] LABS: DHEA-Sulfate 29 mcg/dL (19-231)
[2023-05-02 09:29] LABS: Metanephrine, Free 25 pg/mL (<=57); Normetanephrine, Free 60 pg/mL (<=148); Total, Free (MN + NMN) 85 pg/mL (<=205)
[2023-05-03 19:35] LABS: Adrenocorticotropic Hormone 18 pg/mL (6-50)
[2023-05-05 14:02] LABS: PRA 0.23 ng/mL/h (0.25-5.82)
== END 2023-04-28 08:14 | disposition home or self-care (01) ==
LOC: ANHLAB 08:17
PROVIDERS: PCP Nurse Practitioner Family
DX: E27.8 Other specified disorders of adrenal gland (principal)
CPT/HCPCS: 36415; 80053; 82024; 82088; 82533; 82627; 83835; 84244

== ENCOUNTER 2023-05-09 07:57 | Outpatient (CLI) | payer OTHER, SELFPAY ==
[2023-05-09 08:53] LABS: Total Volume 24 Hour Urine 3450 ml
[2023-05-09 09:07] LABS: Sodium 24 Hour Urine 196 mmol/day (40-220); Sodium Urine Random 57 meq/L
[2023-05-09 10:04] LABS: Cortisol Baseline 3.97 ug/dL
== END 2023-05-09 07:58 | disposition home or self-care (01) ==
PROVIDERS: PCP Nurse Practitioner Family
DX: E27.8 Other specified disorders of adrenal gland (principal)
CPT/HCPCS: 36415; 81050; 82088; 82533; 84300

== ENCOUNTER 2023-05-16 10:43 | Outpatient (CLI) | payer OTHER, SELFPAY ==
[2023-05-24 21:12] LABS: Cortisol, Saliva 0.05 mcg/dL
[2023-05-25 19:08] LABS: Cortisol, Saliva 0.05 mcg/dL
[2023-05-25 19:27] LABS: Cortisol, Saliva 0.07 mcg/dL
== END 2023-05-16 10:44 | disposition home or self-care (01) ==
LOC: ANHLAB 10:46
PROVIDERS: PCP Nurse Practitioner Family
DX: E27.8 Other specified disorders of adrenal gland (principal)
CPT/HCPCS: 82530

== ENCOUNTER 2023-09-01 10:08 | Outpatient (CLI) | payer OTHER, SELFPAY ==
[2023-09-01 12:43] LABS: Total Volume 24 Hour Urine 3100 ml
[2023-09-01 12:52] LABS: Sodium Urine Random 107 meq/L
[2023-09-01 12:55] LABS: Creatinine 24 Hour Urine 0.9 gm/24 (0.8-1.8); Creatinine Urine 32.2 mg/dL
[2023-09-02] LABS: Sodium 24 Hour Urine 331 mmol/day (40-220); Total Volume 24 Hour Urine 3100 ml
== END 2023-09-01 10:09 | disposition home or self-care (01) ==
PROVIDERS: PCP Nurse Practitioner Family
DX: E27.8 Other specified disorders of adrenal gland (principal)
CPT/HCPCS: 36415; 81050; 82088; 82530; 82570; 84300

== ENCOUNTER 2023-09-13 08:09 | Outpatient (CLI) | payer OTHER, SELFPAY ==
[2023-09-13 11:15] LABS: Cortisol Baseline 5.07 ug/dL
[2023-09-13 11:26] LABS: Hemoglobin A1C 5.5 % (<5.7)
[2023-09-18 11:23] LABS: Testosterone Total 2 ng/dL (2-45)
[2023-09-21 11:52] LABS: Dexamethasone 218 ng/dL
== END 2023-09-13 08:10 | disposition home or self-care (01) ==
PROVIDERS: PCP Nurse Practitioner Family
DX: E27.8 Other specified disorders of adrenal gland (principal)
CPT/HCPCS: 36415; 80299; 82533; 83036; 83498; 84403

== ENCOUNTER 2024-03-06 08:10 | Outpatient (CLI) | payer MEDICARE, OTHER, SELFPAY ==
[2024-03-14 17:08] LABS: Dexamethasone 296 ng/dL
== END 2024-03-06 08:11 | disposition home or self-care (01) ==
PROVIDERS: PCP Nurse Practitioner Family
DX: E27.8 Other specified disorders of adrenal gland (principal)
CPT/HCPCS: 36415; 80299; 82533

== ENCOUNTER 2025-06-18 10:38 | Emergency (ER) | payer MEDICARE, MEDICAID, SELFPAY ==
--- OUTSIDE RECORDS SUMMARY | 2020-01-21 11:01 | XMS_ITS | Continuity of Care Document ---
Author Organization [facility] Address [address] [place] [address] [place] [address] Phone Care Team Providers Care Agriculture Professor Name Role Phone Remigio Olsen MD Unavailable Unavailable Allergies, Adverse Reactions, Alerts Substance Reaction Status Criticality No Known Allergies Active No Inform ation Medications Medication Instructions Dosage Effective Dates (start - stop) Status Comments lisinopril 40 mg tablet take 1 tablet by oral route every day 40 MG - Active Norvasc 10 mg tablet take 1 tablet by oral route every day 10 MG - Active hydrochlorothiazide 25 mg tablet take 1 tablet by oral route every day 25 MG - Active Cymbalta 60 mg capsule,delayed release take 1 capsule by oral route every day - Active buspirone 7.5 mg tablet take 1 tablet by oral route 2 times every day 7.5 MG - Active Ativan 0.5 mg tablet take 1 Tablet by oral route 2 times every day as needed 0.5 MG - Active Neurontin 300 mg capsule take 1 capsule by oral route 3 times every day 300 MG - Active avoid driving or operate machines ibuprofen 800 mg tablet take 1 tablet by oral route 3 times every day with food 800 MG - Active baclofen 20 mg tablet take 1 tablet by oral route 2 times every day 20 MG - Active Orovada 10 mg-325 mg tablet take 1 by Oral route 4 times every day 1 - Active Procedures Procedure Date PREV VISIT, NEW, AGE 18-39 OFFICE/OUTPATIENT VISIT, NEW PREV VISIT, NEW, AGE 18-39 Advance Directives Directive Yes / No Effective Date File Name No Information Encounters Encounter Description Practice Location Reason(s) For Visit Diagnoses Date Provider Providers Copied on Encounter PREV VISIT, NEW, AGE 18-39 [facility], [address], [place], [id number], tel:[phone] [facility] Medicine Physical (chief complaint) Encounter for general adult medical exam w abnormal findingsAcute sinusitisEssential (primary) hypertensionChronic pain syndromeGeneralized Anxiety Disorder Jan- 0 Raúl Flood. [address], [place], [id number] , [place]. tel:[phone] PREV VISIT, NEW, AGE 18-39 [facility], [address] [place], [id number], [phone] [facility] PHysical (chief complaint) Dietary surveillance and counselingRoutine Medical ExamRoutine Medical Exam 4 Raúl Flood. [address], [place], [id number] , [place]. tel:[phone] Family History Family Member Type Diagnosis Age At Onset Mother Problem (finding) thyroid Sister Problem (finding) thyroid, fibromyalgia Mother Problem (finding) Coronary artery disease Father Problem (finding) Alive and well Problem (finding) Family history of Back Pain Payers Payer name Insurance type Covered democrat ID Authoriza tion(s) No Information Social History Type Description Quantity Date Captured Comments Alcohol Use Details No Caffeine Use Details Unknown Tobacco Use Status Occasional cigarette smoker Smoking Status Heavy tobacco smoker Smoking Tobacco Use Details Cigarette: Age Started: 14, Years Used 26 Cigarette: 1 Packs per day, Pack Year: 25 Sex Female Vital Signs Date / Time: Height Weight BMI Pulse Rate Blood Pressure Temperature Respiratory Rate Body Surface Area Head Circumference BMI percentile Pulse Ox Inhaled Ox 1:04 PM 64.00 in 245.00 lbs 42.0 5 kg/m eter (2) 130/70 mm[Hg] Chief Complaint And Reason For Visit From encounter dated '01/21/2020 16:01'. Physical (chief complaint). Description: Pt needs annual physical .pt has HTN Pt takes lisinopril, HCTZ and norvasc and her BP is around 120/70 at home. Pt has chronic anxiety without depression. Pt takes buspar and ativan and doing ok Pt denies any depression or any suicidal thought Pt denies any crying spells. Pt c/o sinus congestion with purulent sinus drainage for one week. Pt denies any fever. Pt has some productive coughing ,Pt denies any recent travel or sick contact. Pt denies any sob or chest pain ,Pt has chronic low back pain. Pt has DDD. Pt denies any loss of bladder control. Pt has sciatica leg numbness. Pt states that she is getting norco from her previous PCP who let her go due to no shows. Plan Of Treatment Date Type Action Status Goal Depression screening. Due on due Goal Influenza vaccine. Due on Ap due Goal Pap/HPV testing. Due on due Goal Td vaccine. Due on 20 due Goal Tdap. Due on due Goal Tobacco cessation counseling completed Goal Tobacco cessation counseling completed Referral Ordered: Pain Medicine (related to Chronic pain syndrome) ordered Referral Ordered: Referrals: Pain Medicine. Evaluate and treat ordered Referral Ordered: Physical Therapy ordered Referral Ordered: SHOULDER XRAY 2+ VIEWS Left ordered Referral Referred To: Physical Therapy Ordered: Referral: Physical Therapy. ordered History Of Present Illness Encounter Date Complaint History Of Prese nt Illness Physical Pt needs annual physical .pt has HTN Pt takes lisinopril, HCTZ and norvasc and her BP is around 120/70 at home. Pt has chronic anxiety without depression. Pt takes buspar and ativan and doing ok Pt denies any depression or any suicidal thought Pt denies any crying spells. Pt c/o sinus congestion with purulent sinus drainage for one week. Pt denies any fever. Pt has some productive coughing ,Pt denies any recent travel or sick contact. Pt denies any sob or chest pain ,Pt has chronic low back pain. Pt has DDD. Pt denies any loss of bladder control. Pt has sciatica leg numbness. Pt states that she is getting norco from her previous PCP who let her go due to no shows. Instructions Date Instruction Additional Infor mation Dietary counseling Related to Di etary surveillance counseling Decrease caloric intake Related to Dietary surveillance counseling Assessments Type Assessment Date assessment Encounter for general adult [facility] exam w abnormal findings assessment Acute sinusitis assessment Essential (primary) hypertension assessment Chronic pain syndrome 0 assessment Generalized Anxiety Disorder Jan Mental Status Date Cognitive Assessment Orientation - [place] ed to time, place, person, situation.
--- OUTSIDE RECORDS SUMMARY | 2020-01-21 11:01 | XMS_ITS | Continuity of Care Document ---
Author Organization [facility] Address [address] [place] [address] [place] [address] Phone Care Team Providers Care Hydraulic Miner Name Role Phone Remigio Olsen MD Unavailable Unavailable Allergies, Adverse Reactions, Alerts Substance Reaction Status Criticality No Known Allergies Active No Inform ation Medications Medication Instructions Dosage Effective Dates (start - stop) Status Comments [place] 10 mg-325 mg tablet take 1 by Oral route 4 times every day 1 - Active baclofen 20 mg tablet take 1 tablet by oral route 2 times every day 20 MG - Active ibuprofen 800 mg tablet take 1 tablet by oral route 3 times every day with food 800 MG - Active Neurontin 300 mg capsule take 1 capsule by oral route 3 times every day 300 MG - Active avoid driving or operate machines Ativan 0.5 mg tablet take 1 Tablet by oral route 2 times every day as needed 0.5 MG - Active buspirone 7.5 mg tablet take 1 tablet by oral route 2 times every day 7.5 MG - Active Cymbalta 60 mg capsule,delayed release take 1 capsule by oral route every day - Active hydrochlorothiazide 25 mg tablet take 1 tablet by oral route every day 25 MG - Active Norvasc 10 mg tablet take 1 tablet by oral route every day 10 MG - Active lisinopril 40 mg tablet take 1 tablet by oral route every day 40 MG - Active Procedures Procedure Date PREV VISIT, NEW, AGE 18-39 OFFICE/OUTPATIENT VISIT, NEW PREV VISIT, NEW, AGE 18-39 Advance Directives Directive Yes / No Effective Date File Name No Information Encounters Encounter Description Practice Location Reason(s) For Visit Diagnoses Date Provider Providers Copied on Encounter PREV VISIT, NEW, AGE 18-39 [facility], [place], [address], [place], [id number], tel:[phone] [facility] Medicine Physical (chief complaint) Encounter for general adult medical exam w abnormal findingsAcute sinusitisEssential (primary) hypertensionChronic pain syndromeGeneralized Anxiety Disorder Jan- 0 Raúl Flood. [address], [id number] , [place]. tel:[phone] PREV VISIT, NEW, AGE 18-39 [facility], [place], [address] [place], [id number], [phone] [facility] [place] PHysical (chief complaint) Dietary surveillance and counselingRoutine Medical ExamRoutine Medical Exam 4 Raúl Flood. [address], [id number] , [place]. tel:[phone] Family History Family Member Type Diagnosis Age At Onset Mother Problem (finding) thyroid Sister Problem (finding) thyroid, fibromyalgia Mother Problem (finding) Coronary artery disease Father Problem (finding) Alive and well Problem (finding) Family history of Back Pain Payers Payer name Insurance type Covered green party ID Authoriza tion(s) No Information Social History [...] Of Treatment Date Type Action Status Goal Tdap. Due on due Goal Td vaccine. Due on 20 due Goal Pap/HPV testing. Due on due Goal Influenza vaccine. Due on Ap due Goal Depression screening. Due on due Goal Tobacco cessation counseling [...] Date assessment Encounter for general adult [facility] exam w abnormal findings assessment Acute sinusitis assessment Essential (primary) hypertension assessment Chronic pain syndrome 0 assessment Generalized Anxiety Disorder Jan Mental Status Date Cognitive Assessment Orientation - [place] ed to time, place, person, situation.
--- NOTE | ~2025-06-18 | CT_ITS ---
EXAMINATION: CT abdomen pelvis w con DATE: 06/18/2025 12:18 INDICATION: Right mid abdominal/flank pain and mid back pain. TECHNIQUE: Computed tomography (CT) of the abdomen and pelvis was performed without intravenous contrast. Automated exposure control and iterative reconstruction technique were employed. The dose-length product was 1501.22 mGy-cm. COMPARISON: CT abdomen pelvis dated 09/30/[address] chest dated 09/24/2018 FINDINGS: Mild emphysema. There are diffuse groundglass opacities throughout the visualized lower lungs with some smooth septal line thickening at the bilateral lung bases which suggests mild pulmonary edema. Heart size is normal. No pericardial or pleural effusion. Cholecystectomy clips the gallbladder fossa. L iver, spleen, pancreas and left adrenal gland are normal. 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 There are a couple nonobstructing stones at the lower pole calyx of the right kidney measuring up to 4 mm. Also couple low-attenuation cysts at the lower pole the right kidney the larger measuring 4.5 cm. No other urolithiasis or hydronephrosis. Bowels including the appendix are normal. Bladder is normal. Uterus and bilateral adnexa are unremarkable. No free intraperitoneal gas or fluid. No pathologically enlarged abdominal or pelvic lymphadenopathy. Severe lower lumbar spondylosis. IMPRESSION: 1. Nonobstructing right nephrolithiasis. 2. Mild emphysema with diffuse groundglass opacities in the visualized lower lungs with some associated smooth septal line thickening suggesting this is related mild pulmonary edema. Differential would include less likely atypical pneumonia, drug toxicity or pulmonary alveolar proteinosis. Reviewed, dictated and finalized at location A. IMPRESSION: 1. Nonobstructing right nephrolithiasis. 2. Mild emphysema with diffuse groundglass opacities in the visualized lower [place] ngs with some associated smooth septal line thickening suggesting this is relat ed mild pulmonary edema. Differential would include less likely atypical pneumo stephen, drug toxicity or pulmonary alveolar proteinosis.
[2025-06-18 10:44] VITALS: TEMP 36.8
--- OUTSIDE RECORDS SUMMARY | 2025-06-18 11:11 | XMS_ITS | Clinical Summary ---
Author Organization [facility] Address [address] [place] [address] Phone Care Team Providers Care Farm Instructor Name Role Phone Unavailable Primary Care Provider Unavailabl e Allergies No known active allergies Medications baclofen (LIORESAL) 20 MG Tablet 8 Active gabapentin (NEURONTIN) 300 MG Capsule Take 300 mg by mouth 3 times daily. 8 Active ibuprofen (MOTRIN) 800 MG Tablet 8 Active Aspirin 81 MG Tablet Take 81 mg by mouth daily. Active Multiple Vitamin (MULTI-VITAMIN PO) Take by mouth. Activ e ergocalciferol (VITAMIN D) 24547 UNIT Capsule 8 Active folic acid (FOLVITE) 1 MG Tablet 8 Active omeprazole (PRILOSEC) 20 MG CAPSULE DELAYED RELEASE Take 1 Cap by mouth daily. 90 Cap 3 8 Active Potassium 99 MG Tablet Take 1 Tab by mouth daily. Active diclofenac sodium (VOLTAREN) 1 % Gel MARIEL 2 TO 4 GRAMS BID PRN P 5 9 Active fenofibrate (LOFIBRA) 54 MG Tablet TK 1 T PO BID 5 9 Active WIXELA INHUB 500-50 MCG/DOSE AEROSOL POWDER, BREATH ACTIVATED USE 1 INHALATION PO BID 5 9 Active topiramate (TOPAMAX) 25 MG Tablet Take 1 Tab by mouth 2 times daily. 0 Active Phentermine HCl 37.5 MG Tablet Take 1 Tab by mouth daily. 0 Active fluticasone (FLONASE) 50 MCG/ACT Suspension 2 Sprays by Nasal route daily. Use in each nostril as directed. 3 Bottle 3 0 Active hydrOXYzine (ATARAX) 25 MG Tablet Take 1 Tab by mouth every 6 hours as needed for Anxiety. 90 Tab 0 Active DULoxetine (CYMBALTA) [address] Particles TAKE ONE CAPSULE BY MOUTH DAILY 90 Cap 3 0 Active lisinopril (PRINIVIL, ZESTRIL) 40 MG TabletIndications :Essential hypertension TAKE 1 TABLET BY MOUTH DAILY 90 Tab 3 0 Active amLODIPine (NORVASC) 10 MG TabletIndications :Essential hypertension TAKE 1 TABLET BY MOUTH DAILY 90 Tab 3 0 Active Combivent Respimat 20-100 MCG/ACT Aerosol Solution INHALE 1 PUFF BY MOUTH FOUR TIMES DAILY 12 g 0 Active busPIRone HCl 7.5 MG Tablet TAKE 1 TABLET BY MOUTH TWICE DAILY 60 Tablet 5 1 Active furosemide (LASIX) 20 MG TabletIndications :History of pulmonary edema Take 1 Tablet by mouth daily. 90 Tablet 1 Active Active Problems Problem Noted Date Diagnosed Date Hypertension Hiatal hernia Sciatic nerve pain Bulging lumbar disc GERD (gastroesophageal reflux disease) Arthritis Anxiety Immunizations Immunization Administration Dates Next Due DTP Vaccine 06/06/1986, 3,01/12/1982,1981,1981 Hepatitis B Vaccine, Pediatric/adolescent 12/27/1996,07/03/1996,05/08/1996 Influenza Vaccine, Quadrivalent, PF 09/22/2018 Influenza, Seasonal, Injecta ble, Undefined 08/08/2014 MMR Vaccine 05/23/1991,09/04/1982 OPV 06/06/1986, 3,01/12/1982,1981,1981 Pneumococcal Vaccine Adult - 23 Valent 09/22/2018 TD VACCINE 05/23/1991 Family History Medical History Relation Name Comments Hypertension Father Diabetes Maternal Grandmother Chronic Lung Disease Mother Congestive Heart Failure Mother Diabetes Mother Hypertension Mother Relation Name Status Comments Father Alive Maternal Grandmother Mother Alive Social History Tobacco Use Types Packs/Day Years Used Date Smoking Tobacco: Every Day Cigarettes Smokeless Tobacco: Never Tobacco Cessation:Ready to Q uit: No; Counseling Given: Yes Alcohol Use Standard Drinks/Week Comments No 0 (1 standard drink = 0.6 oz pur e alcohol) PHQ-2 Answer Date Recorded PHQ-2 Score 1 07/19/2019 Comments No Sex and Gender Information Value Date Recorded Sex Assigned at Not on file Legal Sex Female 8:41 PM CDT Gender Identity Not on file Sexual Orientation Not on file Last Filed Vital Signs Vital Sign Reading Time Taken Comments Blood Pressure 96/64 04/07/2020 9:37 AM CDT Pulse 92 04/07/2020 9:37 AM CDT Temperature 36.3 C (97.3 F) 04/07/2020 9:37 AM CDT Respiratory Rate 16 04/07/2020 9:37 AM CDT Oxygen Saturation 97% 04/07/2020 9:37 AM CDT Inhaled Oxygen Concentration - - Weight 118.8 kg (261 lb 12.8 oz) 04/07/2020 9:37 AM CDT Height 162.6 cm (5' 4) 04/07/2020 9:37 AM CDT Body Mass Index 44.94 04/07/2020 9:37 AM CDT Plan of Treatment Health Maintenance Due Date Last Done Comments Hepatitis C Virus (HCV) Screening 1981 Mammogram 1981 DTaP/Tdap/Td Immunization (6 - Tdap) 1992 05/23/1991, 06/06/1986, 12/02/1982, Additional history exists Human Papillomavirus (HPV) Immunization (1 - 3-dose SCDM series) 2008 HPV/Cotest 2011 Cervical Cancer Screening (CCS) 02/23/2021 Pap Smear 02/23/2021 02/23/2018 Discussion re Starting/Frequency of Mammograms 2021 Influenza Immunization (#1) 2025 09/22/2018, 1 SARS-COV-2 Immunization (2 - season) 2025 12/20/2020 Respiratory Syncytial Virus (RSV) Immunization (Adult) (1 - 1-dose 75+ series) 2056 Hepatitis B Immunization Completed 997, 07/03/1996, 05/08/1996 Pneumococcal Immunization Combined Aged Out 09/22/2018 No longer eligible based on patient's age to complete this topic Meningococcal Immunization (ACWY) Aged Out No longer eligible based on patient's age to complete this topic Rotavirus Immunization Aged Out No lo nger eligible based on patient's age to complete this topic Procedures Procedure Name Priority Date/Time Associated Diagnosis Comments PATHOLOGY CYTOLOGY TREE CARE FOREMAN Routine 02/23/2018 from Last 3 Months or Most Recently Relevant to Health Maintenance Results * PATHOLOGY CYTOLOGY TREE CARE FOREMAN (02/23/2018) Specimen of unknown material (specimen) Joaquín Dunlap MD PATHOLOGY/CYTOLOGY ORDERABLES Final Result from Last 3 Months or Most Recently Relevant to Health Maintenance [place] [address] [place] [address] [place]ICAID [place]
--- OUTSIDE RECORDS SUMMARY | 2025-06-18 11:12 | XMS_ITS | Clinical Summary ---
Author Organization [facility] [place] [address] Address [address] [place] [address] Care Team Providers Care Shale Planer Operator Name Role Phone Marcial Mcadams MD Primary Care Provider Laith Soriano DO Unavailable [phone] Nazario Medina MD Unavailable + [phone] Marian Kaplan NP Unavailable [phone] Allergies Active Allergy Reactions Criticality Noted Date Comments Levonorgestrel-Ethinyl Estrad Eye irritation Low 03/09/2021 Other reaction(s): Eyes Water & Itch Other Eye irritation Low 03/09/2021 Medications acetaminophen (TYLENOL) 500 mg tablet Take by mouth every 6 (six) hours as needed Active albuterol HFA (PROVENTIL HFA,VENTOLIN HFA,PROAIR HFA) 90 mcg/actuation inhaler INHALE 2 PUFFS BY MOUTH INTO THE LUNGS EVERY 4 HOURS NEEDED FOR WHEEZING Active ascorbic acid (VITAMIN C) 100 mg tablet Take 1 tablet (100 mg total) by mouth daily Active aspirin 81 mg chewable tablet 1 tablet (81 mg total) daily Active Symbicort 160-4.5 mcg/actuation inhaler INHALE 2 PUFFS INTO THE LUNGS TWICE DAILY Active busPIRone (BUSPAR) 10 mg tablet Take 2 tablets (20 mg total) by mouth 3 (three) times a day 07/04/2023 Active calcium carbonate (OS-MARGARETTE) 1,500 mg (600 mg elemental) tablet Take 1 tablet (1,500 mg total) by mouth daily Active cyanocobalamin (Vitamin B-12) 500 mcg tablet Take 1 tablet (500 mcg total) by mouth daily Active DULoxetine DR (CYMBALTA) 60 mg capsule Take 2 capsules (120 mg total) by mouth daily 07/04/2023 Active ergocalciferol (VITAMIN D) 50,000 unit capsule Take 1 capsule (50,000 Units total) by mouth once a week 05/09/2018 Active fluticasone propionate (FLONASE) 50 mcg/actuation nasal spray INSTILL 2 SPRAYS IN EACH NOSTRIL DAILY DIRECTED 04/07/2020 Active furosemide (LASIX) 40 mg tablet Take 1 tablet (40 mg total) by mouth daily 05/27/2023 Active hydrOXYzine (ATARAX) 50 mg tablet TAKE 1 TABLET(50 MG) BY MOUTH EVERY 6 HOURS NEEDED FOR ITCHING 07/26/2023 Active losartan (COZAAR) 100 mg tablet Take 1 tablet (100 mg total) by mouth daily 07/21/2023 Active methocarbamoL (ROBAXIN) 750 mg tablet TAKE 1 TO 2 TABLETS BY MOUTH THREE TIMES DAILY NEEDED FOR MUSCLE SPASMS Active el-yykfvkc-fxx- iron fm-FA-vitK (Multi For Her) 18 mg iron-600 mcg-80 mcg tablet Rx: Multi For Her - Tablet Active omeprazole (PriLOSEC) 20 mg capsule Take 1 capsule (20 mg total) by mouth daily 09/05/2017 Active topiramate (TOPAMAX) 50 mg tablet Take 1 tablet (50 mg total) by mouth 2 (two) times a day 05/30/2023 Active potassium chloride ER 10 mEq CR capsule Take 2 tablet/capsul e (20 mEq total) by mouth daily 07/07/2023 Active omega-3 fatty acids-fish oil 300-1,000 mg capsule Take 2 capsules (2 g total) by mouth daily Active traZODone (DESYREL) 50 mg tablet Take 1 tablet (50 mg total) by mouth nightly 08/29/2023 Active furosemide (LASIX) 20 mg tablet 1 tablet (20 mg total) 10/03/2023 Active ezetimibe (ZETIA) 10 mg tablet Take 1 tablet (10 mg total) by mouth nightly 01/30/2024 Active zinc gluconate 50 mg tablet Take 1 tablet (50 mg total) by mouth daily 02/10/2024 Active predniSONE (DELTASONE) 10 mg tablet 4 tabs x 3d, 3 tabs x3d, 2 tabs x3d, 1 tab x3d 09/19/2024 Active gabapentin (NEURONTIN) 100 mg capsule 09/19/2024 Active oxyBUTYnin XL (DITROPAN-XL) 10 mg 24 hr tablet 09/08/2024 Active Active Problems Problem Noted Date Diagnosed Date Snoring 08/08/2023 Adrenal mass 08/08/2023 HTN (hypertension) 08/08/2023 Hepatomegaly 08/08/2023 Transaminitis 08/08/2023 CHF exacerbation 04/23/2023 Elevated hemoglobin A1c 02/28/2022 Adenoma of right adrenal gland 02/24/2022 Dyslipidemia 02/24/2022 Vitamin D deficiency 06/04/2020 Bulging lumbar disc 05/30/2020 Depression 05/25/2018 Obesity (BMI 35.0-39.9 without comorbidity) 08/17 Nicotine dependence 08/26/2016 Surgical History Surgery Date Site/Laterality Comments HERNIA REPAIR CHOLECYSTECTOMY TUBAL LIGATION Medical History Medical History Date Comments COPD (chronic obstructive pulmonary disease) HTN (hypertension) Depression Degenerative disc disease, lumbar Anxiety GERD (gastroesophageal reflux disease) Sleep apnea Vitamin D deficiency CHF (congestive heart failure) (HCC) Morbid obesity (HCC) Family History Medical History Relation Name Comments Cancer Father Mauricio Delin Hypertension Father Mauricio Delin htn Father Mauricio Delin Cancer Maternal Grandfather Ralcarla Santana Diabetes Maternal Grandmother Stephanie Max Arthritis Mother Jihan Delin Depression Mother Jihan Delin Hypertension Mother Jihan Delin Obesity Mother Jihan Delin htn Mother Jihan Delin Relation Name Status Comments Father Mauricio Delin Maternal Grandfather Ralp Max Maternal Grandmother Stephanie Max Mother Jihan Delin Social History Tobacco Use Types Packs/Day Years Used Date Smoking Tobacco: Every Day Cigarettes 1 27 Passive Smoke Exposure: Current Smokeless Tobacco: Never Comments:Pt also states she smokes Marijuana. AUDIT-C Answer Date Recorded Q1: How often do you have a drink containing alc ohol? Monthly or less 09/20/2024 Q2: How many drinks containi ng alcohol do you have on a typical day when you are drinking? 1 or 2 09/20/2024 Q3: How often do you have si x or more drinks on one occasion? Never 09/20/2024 Comments No Sex and Gender Information Value Date Recorded Sex Assigned at Not on file Legal Sex Female 5:50 PM BUSINESS TRAVEL CONSULTANT Gender Identity Female 09/27/2024 1:31 PM BUSINESS TRAVEL CONSULTANT Sexual Orientation Straight 09/27/2024 1: 31 PM BUSINESS TRAVEL CONSULTANT Obstetrics History Last Filed Vital Signs Vital Sign Reading Time Taken Comments Blood Pressure 160/98 09/20/2024 1:24 PM BUSINESS TRAVEL CONSULTANT Pulse 83 09/20/2024 1:24 PM BUSINESS TRAVEL CONSULTANT Temperature 36.7 C (98 F) 03/02/2024 1:58 PM CDT Respiratory Rate - - Oxygen Saturation 96% 09/20/2024 1:24 PM BUSINESS TRAVEL CONSULTANT Inhaled Oxygen Concentration - - Weight 132.5 kg (292 lb) 09/20/2024 1:24 PM BUSINESS TRAVEL CONSULTANT Height 162.6 cm (5' 4) 09/20/2024 1:24 PM BUSINESS TRAVEL CONSULTANT Body Mass Index 50.12 09/20/2024 1:24 PM BUSINESS TRAVEL CONSULTANT Plan of Treatment Health Maintenance Due Date Last Done Comments Cervical Cancer Screening 1981 Depression Screening 1981 Hepatitis C Screening 1981 Varicella Vaccines (1 of 2 - 13+ 2-dose series) 1994 Regular Well Visit/Exam 18-64 1999 HPV Vaccines (1 - 3-dose SCD M series) 2008 Pneumococcal vaccine <65 (2 of 2 - PCV) 09/22/2019 09/22/2018 Covid-19 Vaccine (3 - 2023-2 5 season) 2024 04/22/2022, 12/20/2020 Breast Cancer Screening-Mammogram 12/20/2024 024, 12/21/2023 Influenza Vaccine (#1) 2025 , 07/31/2022, 07/17/2021, Additional history exists DTaP/Tdap/Td Vaccine (8 - Td or Tdap) 06/18/2032 06/18/2022, 04/22/2022, 05/23/1991, Additional history exists Hepatitis B Screening Completed 12/27/1996 , 07/03/1996, 05/08/1996 Insurance [facility] UHC MEDICARE [facility] MED[facility] Address: [address] [address] [place] [address] IDPA IDPA [facility] MEDICARE ADVANTAGE [facility] MEDICARE Address: [address] [address] [place] [address] Care Teams Shale Planer Operator Relationship Specialty Start Date End Date Marcial Mcadams MD PCP - General Endocrinology Diabetes & Metabolism 07/27/23 Laith Soriano DO [address] [address] Referring Physician Internal Medicine 03/05/24 Nazario Medina MD [address] [place] [address] Internal Medicine 03/05/24 Marian Kaplan, DALIA [address] [place] [address] Nurse Practitioner Nurse Practitioner 03/05/24
--- OUTSIDE RECORDS SUMMARY | 2025-06-18 11:12 | XMS_ITS | Encounter Summary ---
Author Organization [facility] Address [address] [place] [address] Phone Care Team Providers Care Absorption Operator Name Role Phone Carmelo Potter MD Primary Care Provider [phone] Reason for Visit * Reason Comments Medication Refill Encounter Details Date Type Department Care Team (Late st Contact Info) Description 12/05/2020 Refill [facility] - Family Medicine - [place] [address] [place] [id number] Carmelo Potter MD [address] [address] Medication Refill Social History Tobacco Use Types Packs/Day Years Used Date Smoking Tobacco: Every Day Cigarettes Smokeless Tobacco: Never Alcohol Use Standard Drinks/Week Comments No 0 (1 standard drink = 0.6 oz pur e alcohol) PHQ-2 Answer Date Recorded PHQ-2 Score 1 07/19/2019 Comments No Sex and Gender Information Value Date Recorded Sex Assigned at Not on file Legal Sex Female 8:41 PM CDT Gender Identity Not on file Sexual Orientation Not on file documented as of this encounter Miscellaneous Notes * Telephone Encounter - Carmelo Potter MD - 12/05/2020 8:49 AM CST Prescription approved. Please call in TENANCE PAINTER * Telephone Encounter - Soila Amaro RN - 12/05/2020 8:44 AM CST Medication failed the protocol, provider to review and approve the medication order if appropriate. Requested Prescriptions Pending Prescriptions Disp Refills busPIRone HCl 7.5 MG Tablet [Pharmacy Med Name: BUSPIRONE 7.5MG TABLETS] 60 Tablet 5 Sig: TAKE 1 TABLET BY MOUTH TWICE DAILY Not Delegated - Psychiatry: Anxiolytics/Hypnotics Failed - 12/05/2020 5:24 AM Failed - Valid encounter within last 6 months Past Office Visits Recent Outpatient Visits 8 months ago Bulging lumbar disc [facility] Carmelo Meier MD 11 months ago Essential hypertension [facility] Carmelo Meier MD 1 year ago Bulging lumbar disc [facility]elo Meier MD 1 year [facility] Upcoming Appointments OVERCOIL STEPPER - Recent and Past Visits Recent Visits Date Type Provider Dept 04/07/20 Office Visit Carmelo Potter MD [facility] 01/04/20 Office Visit Carmelo Potter MD [facility] 10/04/19 Office Visit Carmelo Potter MD [facility] Showing recent visits within past 460 days with a meds authorizing provider and meeting all other requirements Future Appointments No visits were found meeting these conditions. Showing future appointments within next 90 days with a meds authorizing provider and meeting all other requirements Failed - This refill cannot be delegated TENANCE PAINTER documented in this encounter Plan of Treatment Not on file documented as of this encounter Visit Diagnoses Not on filedocumented in this encounter Additional Health Concerns Assessment Noted Time PHQ-9 Depression Total Score: 1 07/19/20 19 9:19 AM CDT documented as of this encounter Care Teams Absorption Operator Relationship Specialty Start Date End Date Carmelo Potter MD [address] [address] PCP - General Family Medicine 12/18/18 01/09/24 documented as of this encounter
--- OUTSIDE RECORDS SUMMARY | 2025-06-18 11:12 | XMS_ITS | Encounter Summary ---
Author Organization [facility] Facility Care Team Providers Care Parer Name Role Phone Unknown, Notinfile Primary Care Provider Unavail able Marcial Mcadams MD Primary Care Provider Laith Soriano DO Unavailable [phone] Nazario Medina MD Unavailable + [phone] Marian Kaplan NP Unavailable [phone] Encounter Details Date Type Department Care Team (Latest Contact Info) Description 11/25/2016 Orders Only [facility] ProviderArturo MD [address] [place] [address] Social History Tobacco Use Types Packs/Day Years Used Date Smoking Tobacco: Never Assessed Comments Unknown Sex and Gender Information Value Date Recorded Sex Assigned at Not on file Legal Sex Female 5:50 PM HOTEL RECEPTIONIST Gender Identity Female 09/27/2024 1:31 PM HOTEL RECEPTIONIST Sexual Orientation Straight 09/27/2024 1: 31 PM HOTEL RECEPTIONIST documented as of this encounter Plan of Treatment Not on file documented as of this encounter Procedures Procedure Name Priority Date/Time Associated Diagnosis Comments SCAN - LABS 11/25/2016 12:00 AM HOTEL RECEPTIONIST documented in this encounter Results * SCAN - LABS (11/25/2016 12:00 AM HOTEL RECEPTIONIST) Narrative 11/25/2016 12:00 AM HOTEL RECEPTIONIST Ordered by an unspecified provider. us Historical Provider Final Res ult documented in this encounter Visit Diagnoses Not on filedocumented in this encounter Care Teams Parer Relationship Specialty Start Date End Date Unknown, Notinfile PCP - General 01/13/23 07/26/23 Marcial Mcadams MD PCP - General Endocrinology Diabetes & Metabolism 07/27/23 Laith Soriano DO [address] [address] Referring Physician Internal Medicine 03/05/24 Nazario Medina MD [address] [place] [address] Internal Medicine 03/05/24 Marian Kaplan NP [address] [place] [id number] Nurse Practitioner Nurse Practitioner 03/05/24 documented as of this encounter
--- OUTSIDE RECORDS SUMMARY | 2025-06-18 11:12 | XMS_ITS | Encounter Summary ---
Author Organization [facility] Facility Care Team Providers Care Washery Boss Name Role Phone Unknown, Notinfile Primary Care Provider Unavail able Marcial Mcadams MD Primary Care Provider Laith Soriano DO Unavailable [phone] Nazario Medina MD Unavailable + [phone] Marian Kaplan NP Unavailable [phone] Encounter Details Date Type Department Care Team (Latest Contact Info) Description 11/19/2016 Orders Only [facility]IN[facility] ProviderArturo MD [address] [place] [address] Social History Tobacco Use Types Packs/Day Years Used Date Smoking Tobacco: Never Assessed Comments Unknown Sex and Gender Information Value Date Recorded Sex Assigned at Not on file Legal Sex Female 5:50 PM AUTO VINYL TOP INSTALLER Gender Identity Female 09/27/2024 1:31 PM AUTO VINYL TOP INSTALLER Sexual Orientation Straight 09/27/2024 1: 31 PM AUTO VINYL TOP INSTALLER documented as of this encounter Plan of Treatment Not on file documented as of this encounter Procedures Procedure Name Priority Date/Time Associated Diagnosis Comments SCAN - LABS 11/22/2016 12:00 AM AUTO VINYL TOP INSTALLER documented in this encounter Results * SCAN - LABS (11/22/2016 12:00 AM AUTO VINYL TOP INSTALLER) Narrative 11/22/2016 12:00 AM AUTO VINYL TOP INSTALLER Ordered by an unspecified provider. us Historical Provider Final Res ult documented in this encounter Visit Diagnoses Not on filedocumented in this encounter Care Teams Washery Boss Relationship Specialty Start Date End Date Unknown, Notinfile PCP - General 01/13/23 07/26/23 Marcial Mcadams MD PCP - General Endocrinology Diabetes & Metabolism 07/27/23 Laith Soriano DO [address] [address] Referring Physician Internal Medicine 03/05/24 Nazario Medina MD [address] [place] [address] Internal Medicine 03/05/24 Marian Kaplan NP [address] [place] [address] [id number] Nurse Practitioner Nurse Practitioner 03/05/24 documented as of this encounter
--- OUTSIDE RECORDS SUMMARY | 2025-06-18 11:12 | XMS_ITS | Encounter Summary ---
Author Organization [facility] Facility Care Team Providers Care Universal Branch Consultant Name Role Phone Unknown, Notinfile Primary Care Provider Unavail able Marcial Mcadams MD Primary Care Provider Laith Soriano DO Unavailable [phone] Nazario Medina MD Unavailable + [phone] Marian Kaplan NP Unavailable [phone] Encounter Details Date Type Department Care Team (Latest Contact Info) Description 08/01/2017 Orders Only [facility] ProviderArturo MD [address] [place] [address] Social History Tobacco Use Types Packs/Day Years Used Date Smoking Tobacco: Never Assessed Comments Unknown Sex and Gender Information Value Date Recorded Sex Assigned at Not on file Legal Sex Female 5:50 PM SENIOR MATERIALS ANALYST Gender Identity Female 09/27/2024 1:31 PM SENIOR MATERIALS ANALYST Sexual Orientation Straight 09/27/2024 1: 31 PM SENIOR MATERIALS ANALYST documented as of this encounter Plan of Treatment Not on file documented as of this encounter Procedures Procedure Name Priority Date/Time Associated Diagnosis Comments SCAN - LABS 08/03/2017 12:00 AM CDT documented in this encounter Results * SCAN - LABS (08/03/2017 12:00 AM CDT) Narrative 08/03/2017 12:00 AM CDT Ordered by an unspecified provider. us Historical Provider Final Res ult documented in this encounter Visit Diagnoses Not on filedocumented in this encounter Care Teams Universal Branch Consultant Relationship Specialty Start Date End Date Unknown, Notinfile PCP - General 01/13/23 07/26/23 Marcial Mcadams MD PCP - General Endocrinology Diabetes & Metabolism 07/27/23 Laith Soriano DO [address] [address] Referring Physician Internal Medicine 03/05/24 Nazario Medina MD [address] [place] [address] Internal Medicine 03/05/24 Marian Kaplan NP [address] [place] [id number] Nurse Practitioner Nurse Practitioner 03/05/24 documented as of this encounter
--- OUTSIDE RECORDS SUMMARY | 2025-06-18 11:12 | XMS_ITS | Clinical Summary ---
Author Organization [facility] Address [address] [place] [address] Care Team Providers Care Computer Software Engineer Name Role Phone Unknown, Provider Primary Care Provider Unavaila ble Source Comments [facility],non-owned Affiliates and Associated Physician Practices is amultiple site organization consisting of ambulatory clinics and hospital sitesin [place], [place], [place] and [place]. This disclosure is being madepursuant to the Care Everywhere program and may not contain all information available regarding this patient. Last updated 18.[facility] [employer] Social History Tobacco Use Types Packs/Day Years Used Date Smoking Tobacco: Never Assessed Comments Unknown Sex and Gender Information Value Date Recorded Sex Assigned at Not on file Legal Sex Female 6:30 AM MINING HELPER Gender Identity Not on file Sexual Orientation Not on file Plan of Treatment Health Maintenance Due Date Last Done Comments MAMMOGRAM 1981 HIV SCREENING 1996 HEPATITIS C SCREENING 04/21/1999 DTAP/TDAP/TD VACCINES (1 - Tdap) 2000 HEPATITIS B VACCINE (1 of 3 - 19+ 3-dose series) 2000 PAP SMEAR 2002 HPV VACCINE (1 - 3-dose SCDM series) 2008 COVID-19 VACCINE (2 - season) 2024 04/22/2022 DEPRESSION SCREENING 10/17/2024 INFLUENZA VACCINE (#1) 2025 , 07/31/2022, 07/17/2021, Additional history exists LIPID TESTING 08/24/2028 08/24/2023 ZOSTER VACCINE (1 of 2) 2031 HIB VACCINE Aged Out No longer eligi ble based on patient's age to complete this topic MENINGOCOCCAL (Group B) VACCINE SHARED DECISION-MAKING Aged Out No longer eligible based on patient's age to complete this topic MENINGOCOCCAL GROUPS A/C/Y/W VACCINE Aged Out No longer eligible based on patient's age to complete this topic PNEUMOCOCCAL VACCINE Aged Out No long er eligible based on patient's age to complete this topic Insurance [facility] Care Address: [address] [address] Care Teams Computer Software Engineer Relationship Specialty Start Date End Date Unknown, Provider PCP - General 11/17/23
[2025-06-18 11:29] LABS: Hematocrit 45.8 % (37.0-47.0); Hemoglobin 14.9 g/dL (12.0-15.0); Immature Granulocyte Percent A 0.5 % (0-0.5); Lymphocytes Absolute Auto 2.39 K/mm3 (0.9-3.2); Mean Corpuscular HGB Conc 32.5 g/dl (32-36); Mean Corpuscular Hemoglobin 30.3 pg (26-34); Mean Corpuscular Volume 93.3 fl (80-100); Nucleated Red Blood Cells Absolute Auto 0.000 K/mm3 (0.0-0.012); Nucleated Red Blood Cells Perc 0.0 % (0.0-0.2); Platelet Count Result 251 k/mm3 (150-375); Red Blood Count 4.91 M/mm3 (4.2-5.4); White Blood Count 10.8 K/mm3 (4.5-10.0)
[2025-06-18 11:38] LABS: BEDSIDEPREGUCG Negative (Negative)
[2025-06-18 11:41] LABS: Add Urine Microscopic? YES; Appearance Urine Clear (Clear); Glucose Urine UA Negative (Negative); Leukocyte Esterase Ur 1+ LEU/UL (Negative); Need Manual Microscopic Reviewed; Nitrate Urine Negative (Negative); Non Pathogenic Casts 0-2; Specific Grav Ur 1.007 (1.001-1.035)
--- OUTSIDE RECORDS SUMMARY | 2025-06-18 11:52 | XMS_ITS | Encounter Summary ---
Author Organization [facility] Facility Care Team Providers Care Irrigation Service Technician Name Role Phone Unknown, Notinfile Primary Care Provider Unavail able Marcial Mcadams MD Primary Care Provider Laith Soriano DO Unavailable [phone] Nazario Medina MD Unavailable + [phone] Marian Kaplan NP Unavailable [phone] Encounter Details Date Type Department Care Team (Latest Contact Info) Description 08/01/2017 Orders Only [facility] CLINCONV ProviderArturo MD [address] [place] [address] Social History Tobacco Use Types Packs/Day Years Used Date Smoking Tobacco: Never Assessed Comments Unknown Sex and Gender Information Value Date Recorded Sex Assigned at Not on file Legal Sex Female 5:50 PM MUCK OPERATOR Gender Identity Female 09/27/2024 1:31 PM MUCK OPERATOR Sexual Orientation Straight 09/27/2024 1: 31 PM MUCK OPERATOR documented as of this encounter Plan of [...] on filedocumented in this encounter Care Teams Irrigation Service Technician Relationship Specialty Start Date End Date Unknown, Notinfile PCP - General 01/13/23 07/26/23 Marcial Mcadams MD PCP - General Endocrinology Diabetes & Metabolism 07/27/23 Laith Soriano DO [address] [address] Referring Physician Internal Medicine 03/05/24 Nazario Medina MD [address] [place] [address] Internal Medicine 03/05/24 Marian Kaplan NP [address] [place] [id number] Nurse Practitioner Nurse Practitioner 03/05/24 documented as of this encounter
--- OUTSIDE RECORDS SUMMARY | 2025-06-18 11:52 | XMS_ITS | Clinical Summary ---
Author Organization 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 Gender Identity Female 09/27/2024 1:31 PM AUTOMATIC WASHER MECHANIC Sexual Orientation Straight 09/27/2024 1: 31 PM AUTOMATIC WASHER MECHANIC Obstetrics History Last Filed Vital Signs Vital Sign Reading Time Taken Comments Blood Pressure 160/98 09/20/2024 1:24 PM AUTOMATIC WASHER MECHANIC Pulse 83 09/20/2024 1:24 PM AUTOMATIC WASHER MECHANIC Temperature 36.7 C (98 F) 03/02/2024 1:58 PM CDT Respiratory Rate - - Oxygen Saturation 96% 09/20/2024 1:24 PM AUTOMATIC WASHER MECHANIC Inhaled Oxygen Concentration - - Weight 132.5 kg (292 lb) 09/20/2024 1:24 PM AUTOMATIC WASHER MECHANIC Height 162.6 cm (5' 4) 09/20/2024 1:24 PM AUTOMATIC WASHER MECHANIC Body Mass Index 50.12 09/20/2024 1:24 PM AUTOMATIC WASHER MECHANIC Plan of Treatment Health Maintenance Due Date [...] Screening Completed 12/27/1996 , 07/03/1996, 05/08/1996 Insurance [facility] [employer] OF DISABILITY UHC MEDICARE ADVANTAGE IDPA IDPA [facility] MEDICARE ADVANTAGE Care Teams Boning Room Worker Relationship Specialty Start Date End Date Marcial Mcadams MD PCP - General Endocrinology Diabetes & Metabolism 07/27/23 Laith Soriano DO [address] [address] Referring Physician Internal Medicine 03/05/24 Nazario Medina MD 3 [place] [address] Internal Medicine 03/05/24 Marian Kaplan, DALIA [address] [place] [id number] Nurse Practitioner Nurse Practitioner 03/05/24
--- OUTSIDE RECORDS SUMMARY | 2025-06-18 11:52 | XMS_ITS | Encounter Summary ---
Author Organization [facility] Facility Care Team Providers Care Redipper Name Role Phone Unknown, Notinfile Primary Care Provider Unavail able Marcial Mcadams MD Primary Care Provider Laith Soriano DO Unavailable [phone] Nazario Medina MD Unavailable + [phone] Marian Kaplan NP Unavailable [phone] Encounter Details Date Type Department Care Team (Latest Contact Info) Description 11/25/2016 Orders Only [facility] CLINCONV ProviderArturo MD [address] [place] [address] Social History Tobacco Use Types Packs/Day Years Used Date Smoking Tobacco: Never Assessed Comments Unknown Sex and Gender Information Value Date Recorded Sex Assigned at Not on file Legal Sex Female 5:50 PM ORDER CALLER Gender Identity Female 09/27/2024 1:31 PM ORDER CALLER Sexual Orientation Straight 09/27/2024 1: 31 PM ORDER CALLER documented as of this encounter Plan of Treatment Not on file documented as of this encounter Procedures Procedure Name Priority Date/Time Associated Diagnosis Comments SCAN - LABS 11/25/2016 12:00 AM ORDER CALLER documented in this encounter Results * SCAN - LABS (11/25/2016 12:00 AM ORDER CALLER) Narrative 11/25/2016 12:00 AM ORDER CALLER Ordered by an unspecified provider. us Historical Provider Final Res ult documented in this encounter Visit Diagnoses Not on filedocumented in this encounter Care Teams Redipper Relationship Specialty Start Date End Date Unknown, Notinfile PCP - General 01/13/23 07/26/23 Marcial Mcadams MD PCP - General Endocrinology Diabetes & Metabolism 07/27/23 Laith Soriano DO [address] [address] Referring Physician Internal Medicine 03/05/24 Nazario Medina MD [address] [place] [address] Internal Medicine 03/05/24 Marian Kaplan NP [address] [place] [address] [id number] Nurse Practitioner Nurse Practitioner 03/05/24 documented as of this encounter
--- OUTSIDE RECORDS SUMMARY | 2025-06-18 11:52 | XMS_ITS | Encounter Summary ---
Author Organization [facility] Address [address] [place] [address] Phone Care Team Providers Care Ostrich Farmer Name Role Phone Carmelo Potter MD Primary Care Provider [phone] Reason for Visit * Reason Comments Medication Refill Encounter Details Date Type Department Care Team (Late st Contact Info) Description 12/05/2020 Refill [facility] - [facility] - [place] [address] [place] [id number] Carmelo Potter MD [address] [address] Medication Refill Social History Tobacco Use Types [...] AM CST Prescription approved. Please call in LRY SCOUT * Telephone Encounter - Soila Amaro RN [...] Visits 8 months ago Bulging lumbar disc [facility] Carmelo Meier MD 11 months ago Essential hypertension [facility] Carmelo Meier MD 1 year ago Bulging lumbar disc [facility] Carmelo Meier MD 1 year ago [facility] MD Upcoming Appointments HOGSHEAD BUILDER - Recent and Past Visits Recent Visits Date Type Provider Dept 04/07/20 Office Visit Carmelo Potter MD [facility] 01/04/20 Office Visit Carmelo Potter MD [facility] 10/04/19 Office Visit Carmelo Potter MD [facility] Showing recent visits within past 460 days with a meds authorizing provider and meeting all other requirements Future Appointments No visits were found meeting these conditions. Showing future appointments within next 90 days with a meds authorizing provider and meeting all other requirements Failed - This refill cannot be delegated LRY SCOUT documented in this encounter Plan of Treatment Not on file documented as of this encounter Visit Diagnoses Not on filedocumented in this encounter Additional Health Concerns Assessment Noted Time PHQ-9 Depression Total Score: 1 07/19/20 19 9:19 AM CDT documented as of this encounter Care Teams Ostrich Farmer Relationship Specialty Start Date End Date Carmelo Potter MD [address] [address] PCP - General Family Medicine 12/18/18 01/09/24 documented as of this encounter
--- OUTSIDE RECORDS SUMMARY | 2025-06-18 11:52 | XMS_ITS | Clinical Summary ---
Author Organization [facility] Address [address] [place] [address] Phone Care Team Providers Care Plumber'S Assistant Name Role Phone Unavailable Primary Care Provider [...] by mouth. Activ e ergocalciferol (VITAMIN D) 79116 UNIT Capsule 8 Active folic acid (FOLVITE) [...] Priority Date/Time Associated Diagnosis Comments PATHOLOGY CYTOLOGY COAL HAULER Routine 02/23/2018 from Last 3 Months or Most Recently Relevant to Health Maintenance Results * PATHOLOGY CYTOLOGY COAL HAULER (02/23/2018) Specimen of unknown material (specimen) Joaquín Dunlap MD PATHOLOGY/CYTOLOGY ORDERABLES Final Result from Last 3 Months or Most Recently Relevant to Health Maintenance [place] [address] [place] [address] [place]
--- OUTSIDE RECORDS SUMMARY | 2025-06-18 11:52 | XMS_ITS | Clinical Summary ---
Author Organization [facility] Address [address] [facility] [address] Care Team Providers Care Kinder Teacher Name Role Phone Unknown, Provider Primary Care Provider Unavaila ble Source Comments [facility],non-owned Affiliates and Associated Physician Practices is amultiple site organization consisting of ambulatory clinics and hospital sitesin [place], [place], [place]. This disclosure is being madepursuant to the Care Everywhere program and may not contain all information available regarding this patient. Last updated 18.[facility] [employer] Social History Tobacco Use Types Packs/Day Years Used Date Smoking Tobacco: Never Assessed Comments Unknown Sex and Gender Information Value Date Recorded Sex Assigned at Not on file Legal Sex Female 6:30 AM ACADEMIC COUNSELOR Gender Identity Not on file Sexual Orientation [...] patient's age to complete this topic Insurance [facility] Care Address: [address] [address] Care Teams Kinder Teacher Relationship Specialty Start Date End Date Unknown, Provider PCP - General 11/17/23
--- OUTSIDE RECORDS SUMMARY | 2025-06-18 11:52 | XMS_ITS | Encounter Summary ---
Author Organization [facility] Facility Care Team Providers Care Unit Coordinator Name Role Phone Unknown, Notinfile Primary Care Provider Unavail able Marcial Mcadams MD Primary Care Provider Laith Soriano DO Unavailable [phone] Nazario Medina MD Unavailable + [phone] Marian Kaplan NP Unavailable [phone] Encounter Details Date Type Department Care Team (Latest Contact Info) Description 11/19/2016 Orders Only [facility] CLINCONV ProviderArturo MD [address] [place] [address] Social History Tobacco Use Types Packs/Day Years Used Date Smoking Tobacco: Never Assessed Comments Unknown Sex and Gender Information Value Date Recorded Sex Assigned at Not on file Legal Sex Female 5:50 PM PLASTIC JIG AND FIXTURE BUILDER Gender Identity Female 09/27/2024 1:31 PM PLASTIC JIG AND FIXTURE BUILDER Sexual Orientation Straight 09/27/2024 1: 31 PM PLASTIC JIG AND FIXTURE BUILDER documented as of this encounter Plan of Treatment Not on file documented as of this encounter Procedures Procedure Name Priority Date/Time Associated Diagnosis Comments SCAN - LABS 11/22/2016 12:00 AM PLASTIC JIG AND FIXTURE BUILDER documented in this encounter Results * SCAN - LABS (11/22/2016 12:00 AM PLASTIC JIG AND FIXTURE BUILDER) Narrative 11/22/2016 12:00 AM PLASTIC JIG AND FIXTURE BUILDER Ordered by an unspecified provider. us Historical Provider Final Res ult documented in this encounter Visit Diagnoses Not on filedocumented in this encounter Care Teams Unit Coordinator Relationship Specialty Start Date End Date Unknown, Notinfile PCP - General 01/13/23 07/26/23 Marcial Mcadams MD PCP - General Endocrinology Diabetes & Metabolism 07/27/23 Laith Soriano DO [address] [address] Referring Physician Internal Medicine 03/05/24 Nazario Medina MD [address] [place] [address] Internal Medicine 03/05/24 Marian Kaplan NP [address] [place] [address] [phone] Nurse Practitioner Nurse Practitioner 03/05/24 documented as of this encounter
[2025-06-18 12:01] LABS: Alanine Aminotransferase 51 U/L (6-35); Albumin Level 4.0 g/dL (3.5-5.1); Alkaline Phosphatase 92 U/L (38-126); Anion Gap 6 mmol/L (4-12); Aspartate Amino Transferase 45 U/L (14-36); Bilirubin,Total 0.6 mg/dL (0.2-1.3); Blood Urea Nitrogen 5 mg/dL (7-17); Calcium 9.1 mg/dL (8.4-10.2); Carbon Dioxide 27 mmol/L (22-30); Chloride 104 mmol/L (98-107); Estimated CRCL calculation 110 ml/min; Estimated Glomerular Filt Rate > 60; Glucose 102 mg/dL (65-110); Lipase 30 U/L (23-300); Potassium 3.8 mmol/L (3.4-5.0); Sodium 137 mmol/L (137-145); Total Protein 7.0 g/dL (6.3-8.2)
--- NOTE | 2025-06-18 12:02 | ED.ABDPAIN ---
HPI - Abdominal Pain General Chief Complaint: Abdominal Pain Stated Complaint: right abd pain Time Seen by Provider: 06/18/25 10:56 Source: patient Mode of arrival: ambulatory Limitations: no limitations History of Present Illness HPI narrative: Patient is a 45-year-old female who presents the ED with report of right sided abdominal pain. Patient reports she has had pain throughout her right-sided back, right mid abdomen for the past 1 week. Thought it was a pulled muscle, but has been taking Tylenol, ibuprofen, using ice without improvement. Reports some nausea, denies fevers, diarrhea, constipation, dysuria, hematuria. Related Data Home Medications ?Medication ?Instructions ?Recorded ?Confirmed ?Last Taken ?Type ascorbic acid (vitamin C) 250 mg 250 mg PO DAILY 10/08/21 06/01/22 06/01/22 History tablet aspirin 81 mg tablet,delayed 81 mg PO DAILY 10/08/21 06/01/22 06/01/22 History release budesonide-formoterol HFA 160 1 inh inhalation DAILY 10/08/21 06/01/22 06/01/22 History mcg-4.5 mcg/actuation aerosol inhaler (Symbicort) buspirone 15 mg tablet 15 mg PO BID 10/08/21 06/01/22 11/16/21 04:45 History duloxetine 60 mg capsule,delayed 60 mg PO HS 10/08/21 06/01/22 11/15/21 History release furosemide 40 mg tablet 40 mg PO QAM 10/08/21 06/01/22 06/01/22 History omega-3 fatty acids 1,000 mg 1,000 mg PO DAILY 10/08/21 06/01/22 06/01/22 History capsule (Fish Oil Concentrate) omeprazole 20 mg capsule,delayed 20 mg PO HS 10/08/21 06/01/22 11/15/21 History release topiramate 50 mg tablet 50 mg PO BID 10/08/21 06/01/22 11/16/21 04:45 History vitamin B complex (B 1 tablet PO DAILY 10/08/21 06/01/22 06/01/22 History Complex-Vitamin B12 tablet) ergocalciferol (vitamin D2) 1,250 1,250 mcg PO WEEKLY 06/01/22 06/01/22 05/30/22 History mcg (50,000 unit) capsule (Vitamin D2) fluticasone propionate 50 1 spray intranasal QAM 06/01/22 06/01/22 06/01/22 History mcg/actuation nasal spray,suspension (Allergy Relief (fluticasone)) hydroxyzine HCl 50 mg tablet 50 mg PO QID 06/01/22 06/01/22 Unknown History methocarbamol 750 mg tablet 750 mg PO TID 06/01/22 06/01/22 06/01/22 History multivitamin with minerals-folic 1 tablet PO QAM 06/01/22 06/01/22 06/01/22 History acid 0.4 mg tablet Allergies Allergy/AdvReac Type Severity Reaction Status Date / Time No Known Allergies Allergy Unknown Verified 09/17/22 13:09 Review of Systems Review of Systems: All systems reviewed & are unremarkable except as noted in HPI. All systems reviewed & are unremarkable except as noted in HPI and below PMFSH Past Medical History Medical History Lower extremity edema Neuropathy Prediabetes Hypertension GERD (gastroesophageal reflux disease) COPD (chronic obstructive pulmonary disease) Anxiety Surgical History Surgical History H/O umbilical hernia repair 11/16/21 Hx laparoscopic cholecystectomy 11/16/21 H/O: hysterectomy Family History Family History Father Hypertension Mother Depression Heart disease Hypertension Grandparent Diabetes mellitus Social History Social History Smoking packs per day: 1 Smoking cigarettes per day: 20.0 Years smoked: 26 Smoking pack-years: 26.00 Smoking status: Current every day smoker Tobacco type: cigarettes Alcohol intake: current Drinks per week: 1 Substance use: current Substance use type: marijuana Other substance usage details: EVERY ONCE IN A WHILE Living arrangements: with family Spiritual care concerns: No Exam Narrative: GENERAL: Appears older than stated age, morbidly obese with BMI of 45.8, non-toxic, in no acute distress. HEAD: Normocephalic, atraumatic. RESPIRATORY: Airway patent, respirations nonlabored. Clear to auscultation bilaterally, no rales, rhonchi, wheezing. CARDIOVASCULAR: Regular rate and rhythm without murmurs, rubs, or gallops. ABDOMINAL: Soft, diffuse tenderness throughout right mid back/flank region, right mid abdomen, nondistended. No rebound. Normoactive BS. MUSCULOSKELETAL: Moves all extremities. No gross deformities. SKIN: Warm, dry, normal color. NEURO: A&O X3. Speech clear. Cranial nerves II-XII grossly intact. Steady gait. No ataxic movements. PSYCHIATRIC: Appropriate mood and affect. Normal interaction. Course Vital Signs Vital signs: Vital Signs Temperature 98.3 F 06/18/25 10:44 Temperature 97.5 F L 06/18/25 14:35 Pulse Rate 67 06/18/25 14:35 Respiratory Rate 16 06/18/25 14:35 Blood Pressure 136/87 06/18/25 14:35 Pulse Oximetry 94 06/18/25 14:35 MDM - Abdominal Pain MDM Narrative Medical decision making narrative: Patient presented to ED with report of R sided abd/flank/back pain x1 week. Vital signs are stable upon arrival, patient in no acute distress. CBC with white blood cell count of 10.8. Otherwise unremarkable. CMP unremarkable. Minimal transaminitis. Appears consistent with previous records. Otherwise stable electrolytes, stable kidney function. UA without signs of infection or blood. Urine is negative. CT scan of abdomen/pelvis was obtained and showing right nephrolithiasis, no ureterolithiasis, possible showing possible mild pulmonary edema. Patient denies any respiratory complaints, cough, fevers. Discussed lab and imaging findings, overall reassuring workup with patient. She reports feeling slightly improved with supportive therapy in the ED. Discussed possibility of musculoskeletal etiology given otherwise reassuring findings. Discussed continue management of such, will discharge on short course of muscle relaxers. Patient is in agreement with plan. Feels comfortable going home. Discussed return precautions. Discharged in stable condition. Medical Records Attestation: I reviewed the patient's medical records. Lab Data Attestation: I reviewed the patient's lab results. 06/18/25 11:12 06/18/25 11:12 Labs: Lab Results 06/18/25 06/18/25 Range/Units 11:12 11:37 WBC 10.8 H (4.5-10.0) K/mm3 RBC 4.91 (4.2-5.4) M/mm3 Hgb 14.9 (12.0-15.0) g/dL Hct 45.8 (37.0-47.0) % MCV 93.3 (80-100) fl MCH 30.3 (26-34) pg MCHC 32.5 (32-36) g/dl RDW 16.1 H (11.5-14.5) % Plt Count 251 (150-375) k/mm3 MPV 10.0 (7.4-10.4) fl Immature Gran % (Auto) 0.5 (0-0.5) % Neut % (Auto) 65.5 (45.5-73.1) % Lymph % (Auto) 22.1 (18.3-44.2) % [place] % (Auto) 8.5 (2.6-8.5) % Eos % (Auto) 3.0 (0-4.4) % Baso % (Auto) 0.4 (0.2-1.2) % Lymph # (Auto) 2.39 (0.9-3.2) K/mm3 [place] # (Auto) 0.9 H (0.1-0.6) K/mm3 Eos # (Auto) 0.3 (0-0.3) K/mm3 Baso # (Auto) 0.0 (0.0-0.1) K/mm3 Abs Immat Gran (auto) 0.05 H (0.00-0.031) K/mm3 Absolute Neuts (auto) 7.1 H (1.3-6.7) K/mm3 Absolute Nucleated RBC 0.000 (0.0-0.012) K/mm3 Nucleated RBC % 0.0 (0.0-0.2) % Sodium 137 (137-145) mmol/L Potassium 3.8 (3.4-5.0) mmol/L Chloride 104 (98-107) mmol/L Carbon Dioxide 27 (22-30) mmol/L Anion Gap 6 (4-12) mmol/L BUN 5 L D (7-17) mg/dL Creatinine 0.72 (0.7-1.0) mg/dL Estim Creat Clear Calc 110 ml/min Estimated GFR > 60 (59 - ) Glucose 102 (65-110) mg/dL Calcium 9.1 (8.4-10.2) mg/dL Total Bilirubin 0.6 (0.2-1.3) mg/dL AST 45 H (14-36) U/L ALT 51 H (6-35) U/L Alkaline Phosphatase 92 (38-126) U/L Total Protein 7.0 (6.3-8.2) g/dL Albumin 4.0 (3.5-5.1) g/dL Lipase 30 (23-300) U/L Urine Color Yellow (Yellow) Urine Appearance Clear (Clear) Urine pH 7.0 (5.0-9.0) Ur Specific [place] 1.007 (1.001-1.035) Urine Protein Negative (Negative) mg/dL Urine Glucose (UA) Negative (Negative) mg/dL Urine Ketones Negative (Negative) mg/dL Ur Blood (Man) Negative (Negative) Urine Nitrate Negative (Negative) Urine Bilirubin Negative (Negative) Urine Urobilinogen 0.2 (<2.0) mg/dL Add Ur Microanalysis Reviewed Leukocyte Esterase Rfl 1+ H (Negative) OMA/UL Urine RBC 0-2 (0-2) /hpf Urine WBC 0-5 (0-3) /hpf Ur Squamous Epith Cells Few (Few) /hpf Urine Bacteria None seen /hpf Urine Casts 0-2 POC Urine HCG, Qual Negative (Negative) Imaging Data Attestation: I personally reviewed and interpreted this imaging study as follows: Radiologist's impression: ITS Impressions Abdomen/Pelvis CT 06/18/25 13:39 IMPRESSION: 1. Nonobstructing right nephrolithiasis. 2. Mild emphysema with diffuse groundglass opacities in the visualized lower lungs with some associated smooth septal line thickening suggesting this is related mild pulmonary edema. Differential would include less likely atypical pneumonia, drug toxicity or pulmonary alveolar proteinosis. Discharge Plan Discharge Clinical Impression: Right sided abdominal pain Right-sided back pain Qualifiers: Back pain location: back pain in unspecified location Chronicity: acute Qualified Code(s): M54.9 - Dorsalgia, unspecified Patient Disposition: Home Condition: Stable Instructions: Antibiotic Form, Abdominal Pain (ED), Musculoskeletal Pain (ED) Additional Instructions: Your workup here was reassuring. Continue Tylenol and Ibuprofen as needed for pain. You may use ice/heat, lidocaine patches to area of pain. Take muscle relaxers as needed and prescribed. Recommend taking these at night as they may cause sedation. Do not drive, operate heavy machinery, drink alcohol while on muscle relaxers as this may cause further sedation. Follow-up with your primary care doctor for further evaluation. Return to the ED if you experience worsening or severe pain, recurrent injury, numbness in groin or legs, going to the bathroom without meaning to, blood in urine, fevers, unable to keep down food or drink, or any other symptoms of concern. Patient Language: Polish Prescriptions: New lidocaine 5 % adhesive patch,medicated 1 patch topical DAILY Qty: 15 0RF Rx Instructions: leave on most painful area for up to 12 hrs cyclobenzaprine 5 mg tablet 5 mg PO TID PRN (Reason: muscle spasm) Qty: 10 0RF No Action furosemide 40 mg tablet 40 mg PO QAM ascorbic acid (vitamin C) 250 mg tablet 250 mg PO DAILY vitamin B complex [B Complex-Vitamin B12] Tablet 1 tablet PO DAILY budesonide-formoterol [Symbicort] 160-4.5 mcg/actuation HFA aerosol inhaler 1 inh inhalation DAILY omeprazole 20 mg capsule,delayed release(DR/EC) 20 mg PO HS omega-3 fatty acids [Fish Oil Concentrate] 1,000 mg capsule 1,000 mg PO DAILY aspirin 81 mg tablet,delayed release (DR/EC) 81 mg PO DAILY buspirone 15 mg tablet 15 mg PO BID duloxetine 60 mg capsule,delayed release(DR/EC) 60 mg PO HS topiramate 50 mg tablet 50 mg PO BID hydroxyzine HCl 50 mg Tablet 50 mg PO QID methocarbamol 750 mg Tablet 750 mg PO TID ergocalciferol (vitamin D2) [Vitamin D2] 1,250 mcg (50,000 unit) Capsule 1,250 mcg PO WEEKLY Rx Instructions: Takes every Tuesday fluticasone propionate [Allergy Relief (fluticasone)] 50 mcg/actuation [place],Suspension 1 spray INTRANASAL QAM Rx Instructions: administer into each nostril multivit with min-folic acid 0.4 mg Tablet 1 tablet PO QAM lisinopril 20 mg Tablet 20 mg PO DAILY Qty: 30 2RF furosemide 40 mg Tablet 40 mg PO DAILY Qty: 30 3RF acetaminophen 500 mg Tablet 1,000 mg PO Q8HR Qty: 60 3RF gabapentin [Neurontin] 300 mg Capsule 600 mg PO TID Qty: 180 3RF oxycodone 5 mg Tablet 10 mg PO Q6H PRN (Reason: Pain Rated 7-10) 7 Days Qty: 56 0RF potassium chloride 10 mEq capsule, extended release 20 meq PO DAILY Qty: 60 2RF mupirocin calcium 2 % cream 1 applic topical TID Qty: 30 1RF Follow-up/Referrals: WILFREDO,LULA DE LA O [Primary Care Provider] Time of Disposition: 14:18
[2025-06-18] MEDS: MORPHINE SULFATE (*CRX) 4 MG/ML INJ IV PUSH ×2 (12:03→13:06)
[2025-06-18] MEDS: ONDANSETRON INJ 4 MG/2 ML VIAL IV PUSH (12:03)
[2025-06-18 12:31] VITALS: BP 135/83; PULSE 69; RESP 16; TEMP 36.8; O2SAT 94
[2025-06-18 13:09] VITALS: BP 113/71; PULSE 65; RESP 16; O2SAT 93
[2025-06-18] MEDS: KETOROLAC 30 MG/ML VIAL (*BKC) IV PUSH (14:15)
[2025-06-18 14:35] VITALS: BP 136/87; PULSE 67; RESP 16; TEMP 36.4; O2SAT 94
== END 2025-06-18 14:36 | disposition home or self-care (01) ==
PROVIDERS: Emergency Provider Physician Assistant; PCP Nurse Practitioner Family
DX: R10.9 Unspecified abdominal pain (principal); M54.9 Dorsalgia, unspecified; Z79.82 Long term (current) use of aspirin; K21.9 Gastro-esophageal reflux disease without esophagitis; I10 Essential (primary) hypertension; F41.9 Anxiety disorder, unspecified; R73.03 Prediabetes; J44.9 Chronic obstructive pulmonary disease, unspecified; Z82.49 Family history of ischemic heart disease and other diseases of the circulatory system; Z83.3 Family history of diabetes mellitus; F17.210 Nicotine dependence, cigarettes, uncomplicated
CPT/HCPCS: 36415; 74177; 80053; 81001; 81025; 83690; 85025; 87086; 96374; 96375; 96376; 99284; J1885; J2270; J2405; Q9967